=== PATIENT | female | born 1955 | race American Indian/Alaskan Native ===

== ENCOUNTER 2018-06-03 19:11 | Emergency (ER) | payer OTHER ==
[~2018-06-03] VITALS: Ht 152.4 cm; Wt 95.2 kg
[~2018-06-03 19:11] MED LIST: BUPR150T2 PO; HYDCHL25 PO; LEVSOD100 PO; LOSA25 PO; MULVITMIND PO; PROBIOTIC PO; TOCO400 PO
[2018-06-03 20:05] LABS: BASOPHILS ABSOLUTE AUTO 0.06 K/mm3 (0.00-0.23); BASOPHILS PERCENT AUTO 1 % (0-2); EOSINOPHILS ABSOLUTE AUTO 0.03 K/mm3 (0.00-0.68); EOSINOPHILS PERCENT AUTO 0 % (0-6); Hematocrit 38.9 % (33.0-51.0); Hemoglobin 13.4 g/dL (11.5-16.0); IMMATURE GRAN ABSOLUTE AUTO 0.02 K/mm3 (0.00-0.10); IMMATURE GRAN PERCENT AUTO 0 % (0-1); LYMPHOCYTES ABSOLUTE AUTO 1.36 K/mm3 (0.84-5.20); LYMPHOCYTES PERCENT AUTO 16 % (21-46); MONOCYTES ABSOLUTE AUTO 0.81 K/mm3 (0.16-1.47); MONOCYTES PERCENT AUTO 10 % (4-13); Mean Corpuscular HGB 34.3 pg (26.0-34.0); Mean Corpuscular HGB Conc 34.4 g/dL (31.5-36.5); Mean Corpuscular Volume 100 fL (80-100); Mean Platelet Volume 11.2 fL (9.1-12.4); NEUTROPHILS ABSOLUTE AUTO 6.02 K/mm3 (1.96-9.15); NEUTROPHILS PERCENT AUTO 73 % (41-73); Platelet Count 238 K/mm3 (150-400); RDW Coefficient Variation 12.9 % (11.7-14.2); Red Blood Cell Count 3.91 M/mm3 (3.80-5.20)
[2018-06-03 20:28] LABS: Alanine Aminotransfer (ALT/SGP 43 U/L (12-78); Albumin, Blood 3.6 g/dL (3.4-5.0); Albumin/Globulin Ratio 0.9 (0.8-1.8); Alk Phos 73 U/L (50-136); Anion Gap 11 mmol/L (6-16); Aspartate Aminotrans (AST/SGOT 53 U/L (12-37); Bilirubin, Total 0.5 mg/dL (0.1-1.0); Blood Urea Nitrogen 25 mg/dL (8-24); Bun/Creatinine Ratio 33.4 (12.0-20.0); CO2, Blood 31 mmol/L (21-32); Calcium, Blood 7.9 mg/dL (8.5-10.1); Chloride, Blood 96 mmol/L (98-108); Creatinine, Blood 0.75 mg/dL (0.40-1.00); Globulin, Blood 3.9 g/dL (2.2-4.0); Glomerular Filtration Rate >60 (60-); Glucose, Blood 121 mg/dL (70-99); Phosphorus, Blood 2.4 mg/dL (2.5-4.9); Potassium, Blood 3.3 mmol/L (3.5-5.5); Sodium, Blood 138 mmol/L (136-145); Total Protein, Blood 7.5 g/dL (6.4-8.2)
== END 2018-06-04 00:35 | disposition home or self-care (01) ==
LOC: ER 19:11
PROVIDERS: Physician Assistant
DX: E83.51 Hypocalcemia (principal); E83.42 Hypomagnesemia; F10.10 Alcohol abuse, uncomplicated; Z88.8 Allergy status to other drugs, medicaments and biological substances; Z79.899 Other long term (current) drug therapy; Z87.891 Personal history of nicotine dependence
CPT/HCPCS: 80053; 83735; 84100; 85025; 99283; J0610; J3475; J7030

== ENCOUNTER 2019-06-01 10:16 | Emergency (ER) | payer OTHER ==
[~2019-06-01] VITALS: Ht 152.4 cm; Wt 84.4 kg
[~2019-06-01 10:16] MED LIST changes: -HYDCHL25 PO; -LEVSOD100 PO; -LOSA25 PO; -PROBIOTIC PO
[2019-06-01 10:31] LABS: BASOPHILS ABSOLUTE AUTO 0.06 K/mm3 (0.00-0.23); BASOPHILS PERCENT AUTO 1 % (0-2); EOSINOPHILS ABSOLUTE AUTO 0.03 K/mm3 (0.00-0.68); EOSINOPHILS PERCENT AUTO 1 % (0-6); Hemoglobin 13.4 g/dL (11.5-16.0); IMMATURE GRAN ABSOLUTE AUTO 0.01 K/mm3 (0.00-0.10); IMMATURE GRAN PERCENT AUTO 0 % (0-1); LYMPHOCYTES ABSOLUTE AUTO 1.17 K/mm3 (0.84-5.20); LYMPHOCYTES PERCENT AUTO 20 % (21-46); MONOCYTES ABSOLUTE AUTO 0.65 K/mm3 (0.16-1.47); MONOCYTES PERCENT AUTO 11 % (4-13); Mean Corpuscular HGB 32.8 pg (26.0-34.0); Mean Corpuscular HGB Conc 35.3 g/dL (31.5-36.5); Mean Corpuscular Volume 93 fL (80-100); Mean Platelet Volume 10.2 fL (9.1-12.4); NEUTROPHILS ABSOLUTE AUTO 3.93 K/mm3 (1.96-9.15); NEUTROPHILS PERCENT AUTO 67 % (41-73); Platelet Count 217 K/mm3 (150-400); RDW Coefficient Variation 12.8 % (11.7-14.2); RDW Standard Deviation 43.9 fL (35.1-46.3); Red Blood Cell Count 4.08 M/mm3 (3.80-5.20); White Blood Cell Count 5.85 K/mm3 (4.00-11.30)
[2019-06-01 10:59] LABS: Troponin I <0.015 ng/mL (0.000-0.040)
[2019-06-01 11:00] LABS: Alanine Aminotransfer (ALT/SGP 54 U/L (12-78); Albumin, Blood 3.5 g/dL (3.4-5.0); Alk Phos 55 U/L (50-136); Anion Gap 12 mmol/L (6-16); Aspartate Aminotrans (AST/SGOT 87 U/L (12-37); Bilirubin, Total 0.5 mg/dL (0.1-1.0); Blood Urea Nitrogen 13 mg/dL (8-24); Bun/Creatinine Ratio 13.7 (12.0-20.0); CO2, Blood 33 mmol/L (21-32); Calcium, Blood 6.4 mg/dL (8.5-10.1); Chloride, Blood 92 mmol/L (98-108); Creatinine, Blood 0.95 mg/dL (0.40-1.00); Globulin, Blood 3.5 g/dL (2.2-4.0); Glomerular Filtration Rate >60 (60-); Glucose, Blood 168 mg/dL (70-99); Potassium, Blood 2.6 mmol/L (3.5-5.5); Sodium, Blood 137 mmol/L (136-145)
[2019-06-01] MEDS ORDERED: Venlafaxine HC150 MG PO (12:20)
[2019-06-01] MEDS ORDERED: HYDCHL50 PO (12:24)
[2019-06-01] MEDS ORDERED: PROBIOTIC PO (12:40)
[2019-06-01] MEDS ORDERED: LEVSOD100 PO (12:40)
[2019-06-01] MEDS ORDERED: LOSARTAN POTAS100 M1 PO (12:40)
[2019-06-01] MEDS ORDERED: ZOFRAN8 MG PO (12:42)
[2019-06-01] MEDS ORDERED: OMEP20ER PO (12:42)
[2019-06-01] MEDS ORDERED: BIOTIN PO (12:43)
[2019-06-01] MEDS ORDERED: CHLO25 PO ×2 (12:55→12:57)
[2019-06-01] MEDS ORDERED: POTA20PAC PO (12:55)
[2019-06-01] MEDS ORDERED: MAGNESIUM OXID500 MG PO (12:55)
== END 2019-06-01 14:41 | disposition home or self-care (01) ==
LOC: ER 10:16
PROVIDERS: Emergency Medicine
DX: F10.239 Alcohol dependence with withdrawal, unspecified (principal); E83.42 Hypomagnesemia; E87.6 Hypokalemia; Z88.8 Allergy status to other drugs, medicaments and biological substances; Z79.899 Other long term (current) drug therapy
CPT/HCPCS: 71046; 80053; 83690; 83735; 83880; 84484; 85025; 93005; 93010; 96365; 96366; 96368; 96375; 96376; 99285-25; J2060; J3475; J3480

== ENCOUNTER 2019-07-01 12:37 | Emergency (ER) | payer OTHER ==
[~2019-07-01] VITALS: Ht 154.9 cm; Wt 81.7 kg
[~2019-07-01 12:37] MED LIST changes: +BIOTIN PO; +CHLO25 PO; +HYDCHL50 PO; +LEVSOD100 PO; +LOSARTAN POTAS100 M1 PO; +MAGNESIUM OXID500 MG PO; +OMEP20ER PO; +POTA20PAC PO; +PROBIOTIC PO; +Venlafaxine HC150 MG PO; +ZOFRAN8 MG PO
[2019-07-01] MEDS ORDERED: AMLODIPINE BESYL5 MG PO (13:29)
[2019-07-01] MEDS ORDERED: LORAZEPAM0.5 MG PO (13:29)
[2019-07-01 14:43] LABS: BASOPHILS ABSOLUTE AUTO 0.11 K/mm3 (0.00-0.23); BASOPHILS PERCENT AUTO 2 % (0-2); EOSINOPHILS ABSOLUTE AUTO 0.12 K/mm3 (0.00-0.68); EOSINOPHILS PERCENT AUTO 2 % (0-6); Hemoglobin 10.9 g/dL (11.5-16.0); IMMATURE GRAN ABSOLUTE AUTO 0.06 K/mm3 (0.00-0.10); IMMATURE GRAN PERCENT AUTO 1 % (0-1); LYMPHOCYTES ABSOLUTE AUTO 1.92 K/mm3 (0.84-5.20); LYMPHOCYTES PERCENT AUTO 27 % (21-46); MONOCYTES PERCENT AUTO 9 % (4-13); Mean Corpuscular HGB 32.5 pg (26.0-34.0); Mean Corpuscular Volume 99 fL (80-100); Mean Platelet Volume 11.5 fL (9.1-12.4); NEUTROPHILS ABSOLUTE AUTO 4.29 K/mm3 (1.96-9.15); NEUTROPHILS PERCENT AUTO 61 % (41-73); Platelet Count 231 K/mm3 (150-400); RDW Coefficient Variation 13.3 % (11.7-14.2); RDW Standard Deviation 47.6 fL (35.1-46.3); Red Blood Cell Count 3.35 M/mm3 (3.80-5.20)
[2019-07-01 14:51] LABS: Alanine Aminotransfer (ALT/SGP 109 U/L (12-78); Albumin, Blood 3.3 g/dL (3.4-5.0); Albumin/Globulin Ratio 0.9 (0.8-1.8); Alk Phos 59 U/L (50-136); Anion Gap 6 mmol/L (6-16); Aspartate Aminotrans (AST/SGOT 208 U/L (12-37); Bilirubin, Total 0.3 mg/dL (0.1-1.0); Blood Urea Nitrogen 9 mg/dL (8-24); CO2, Blood 27 mmol/L (21-32); Calcium, Blood 7.2 mg/dL (8.5-10.1); Chloride, Blood 109 mmol/L (98-108); Creatinine, Blood 0.64 mg/dL (0.40-1.00); Globulin, Blood 3.6 g/dL (2.2-4.0); Glomerular Filtration Rate >60 (60-); Glucose, Blood 82 mg/dL (70-99); Magnesium, Blood 1.3 mg/dL (1.6-2.4); Phosphorus, Blood 1.9 mg/dL (2.5-4.9); Potassium, Blood 3.9 mmol/L (3.5-5.5); Sodium, Blood 142 mmol/L (136-145); Total Protein, Blood 6.9 g/dL (6.4-8.2)
[2019-07-01] MEDS ORDERED: PHOSPHOROUS 25250 MG PO (15:53)
== END 2019-07-01 16:09 | disposition home or self-care (01) ==
LOC: ER 12:37
PROVIDERS: Physician Assistant
DX: E83.42 Hypomagnesemia (principal); E83.51 Hypocalcemia; E83.39 Other disorders of phosphorus metabolism; D64.9 Anemia, unspecified; F10.10 Alcohol abuse, uncomplicated; Z88.8 Allergy status to other drugs, medicaments and biological substances; Z79.899 Other long term (current) drug therapy; Z87.891 Personal history of nicotine dependence
CPT/HCPCS: 36415; 80053; 83735; 84100; 85025; 93005; 93010; 99283-25

== ENCOUNTER 2019-08-09 15:23 | Emergency (ER) | payer OTHER ==
[~2019-08-09] VITALS: Ht 154.9 cm; Wt 77.6 kg
[~2019-08-09 15:23] MED LIST changes: +AMLODIPINE BESYL5 MG PO; +LORAZEPAM0.5 MG PO; +PHOSPHOROUS 25250 MG PO
[2019-08-09 17:32] LABS: Source, Urine Clean Catch
[2019-08-09 17:35] LABS: BASOPHILS PERCENT AUTO 1 % (0-2); EOSINOPHILS PERCENT AUTO 5 % (0-6); IMMATURE GRAN PERCENT AUTO 0 % (0-1); LYMPHOCYTES PERCENT AUTO 23 % (21-46); MONOCYTES PERCENT AUTO 8 % (4-13); Mean Corpuscular HGB 31.9 pg (26.0-34.0); Mean Corpuscular HGB Conc 33.3 g/dL (31.5-36.5); Mean Corpuscular Volume 96 fL (80-100); Mean Platelet Volume 11.3 fL (9.1-12.4); NEUTROPHILS PERCENT AUTO 64 % (41-73); Platelet Count 253 K/mm3 (150-400); RDW Coefficient Variation 12.4 % (11.7-14.2); RDW Standard Deviation 44.1 fL (35.1-46.3); Red Blood Cell Count 4.08 M/mm3 (3.80-5.20); White Blood Cell Count 9.52 K/mm3 (4.00-11.30)
[2019-08-09 17:36] LABS: BASOPHILS ABSOLUTE AUTO 0.08 K/mm3 (0.00-0.23); EOSINOPHILS ABSOLUTE AUTO 0.45 K/mm3 (0.00-0.68); IMMATURE GRAN ABSOLUTE AUTO 0.03 K/mm3 (0.00-0.10); LYMPHOCYTES ABSOLUTE AUTO 2.19 K/mm3 (0.84-5.20); MONOCYTES ABSOLUTE AUTO 0.71 K/mm3 (0.16-1.47); NEUTROPHILS ABSOLUTE AUTO 6.06 K/mm3 (1.96-9.15)
[2019-08-09 17:38] LABS: Bilirubin, Urine Neg (Neg); Blood, Urine 1+ (Neg); Glucose Qualitative, Urine Neg (Neg); Ketones, Urine Neg (Neg); Leukocyte Esterase, Urine Neg (Neg); Nitrite, Urine Neg (Neg); Protein, Urine Neg (Neg); Urobilinogen, Urine NORM (Normal); pH, Urine 6.5 (5.0-8.0)
[2019-08-09 17:58] LABS: Alanine Aminotransfer (ALT/SGP 60 U/L (12-78); Albumin, Blood 3.8 g/dL (3.4-5.0); Alk Phos 100 U/L (50-136); Anion Gap 3 mmol/L (6-16); Aspartate Aminotrans (AST/SGOT 63 U/L (12-37); Bilirubin, Total 0.4 mg/dL (0.1-1.0); Blood Urea Nitrogen 11 mg/dL (8-24); Bun/Creatinine Ratio 13.3 (12.0-20.0); CO2, Blood 29 mmol/L (21-32); Calcium, Blood 9.3 mg/dL (8.5-10.1); Chloride, Blood 102 mmol/L (98-108); Creatinine, Blood 0.83 mg/dL (0.40-1.00); Globulin, Blood 3.9 g/dL (2.2-4.0); Glomerular Filtration Rate >60 (60-); Glucose, Blood 88 mg/dL (70-99); Magnesium, Blood 1.7 mg/dL (1.6-2.4); Sodium, Blood 134 mmol/L (136-145); Total Protein, Blood 7.7 g/dL (6.4-8.2)
[2019-08-09 18:01] LABS: Appearance, Urine Clear (Clear); Color, Urine Yellow (P-Yellow)
[2019-08-09 18:05] LABS: Bacteria Mod /hpf; Squamous Epithelial Cells Few /hpf (Few); White Blood Cells, Urine 0-2 /hpf (0-5)
== END 2019-08-09 21:07 | disposition home or self-care (01) ==
LOC: ER 15:23
PROVIDERS: Physician Assistant
DX: R53.1 Weakness (principal); Z88.8 Allergy status to other drugs, medicaments and biological substances; Z79.899 Other long term (current) drug therapy; Z87.891 Personal history of nicotine dependence
CPT/HCPCS: 36415; 80053; 81001; 83690; 83735; 84100; 84484; 85025; 87086; 93005; 93010; 99284-25

== ENCOUNTER 2019-12-01 09:21 | Emergency (ER) | payer OTHER ==
[~2019-12-01] VITALS: Ht 154.9 cm; Wt 80.7 kg
[~2019-12-01 09:21] MED LIST changes: +ONDA4ODT MM
[2019-12-01 10:39] LABS: BASOPHILS ABSOLUTE AUTO 0.05 K/mm3 (0.00-0.23); BASOPHILS PERCENT AUTO 1 % (0-2); EOSINOPHILS ABSOLUTE AUTO 0.17 K/mm3 (0.00-0.68); EOSINOPHILS PERCENT AUTO 3 % (0-6); IMMATURE GRAN ABSOLUTE AUTO 0.03 K/mm3 (0.00-0.10); IMMATURE GRAN PERCENT AUTO 1 % (0-1); LYMPHOCYTES ABSOLUTE AUTO 1.44 K/mm3 (0.84-5.20); LYMPHOCYTES PERCENT AUTO 27 % (21-46); MONOCYTES ABSOLUTE AUTO 0.55 K/mm3 (0.16-1.47); MONOCYTES PERCENT AUTO 10 % (4-13); Mean Corpuscular HGB 31.4 pg (26.0-34.0); Mean Corpuscular HGB Conc 32.4 g/dL (31.5-36.5); Mean Corpuscular Volume 97 fL (80-100); NEUTROPHILS ABSOLUTE AUTO 3.19 K/mm3 (1.96-9.15); NEUTROPHILS PERCENT AUTO 59 % (41-73); RDW Coefficient Variation 13.9 % (11.7-14.2); Red Blood Cell Count 3.82 M/mm3 (3.80-5.20); White Blood Cell Count 5.43 K/mm3 (4.00-11.30)
[2019-12-01 10:54] LABS: Mean Platelet Volume 11.6 fL (9.1-12.4); Platelet Count 119 K/mm3 (150-400)
[2019-12-01 11:02] LABS: Alanine Aminotransfer (ALT/SGP 93 U/L (12-78); Albumin, Blood 3.1 g/dL (3.4-5.0); Albumin/Globulin Ratio 0.8 (0.8-1.8); Alk Phos 162 U/L (50-136); Anion Gap 7 mmol/L (6-16); Aspartate Aminotrans (AST/SGOT 118 U/L (12-37); Bilirubin, Total 0.6 mg/dL (0.1-1.0); Blood Urea Nitrogen 29 mg/dL (8-24); Bun/Creatinine Ratio 38.9 (12.0-20.0); CO2, Blood 25 mmol/L (21-32); Calcium, Blood 8.4 mg/dL (8.5-10.1); Chloride, Blood 105 mmol/L (98-108); Creatinine, Blood 0.75 mg/dL (0.40-1.00); Glomerular Filtration Rate >60 (60-); Glucose, Blood 123 mg/dL (70-99); Potassium, Blood 3.9 mmol/L (3.5-5.5); Sodium, Blood 137 mmol/L (136-145); Total Protein, Blood 7.1 g/dL (6.4-8.2)
[2019-12-01] MEDS ORDERED: AMLODIPINE BESYL5 MG PO (11:54)
[2019-12-01] MEDS ORDERED: MAGNESIUM PO (11:56)
[2019-12-01] MEDS ORDERED: MAGNESIUM OXID500 MG PO (11:59)
[2019-12-01] MEDS ORDERED: POTASSIUM GLUCO99 M1 PO (11:59)
[2019-12-01] MEDS ORDERED: MAGOXI400 PO (13:12)
[2019-12-01] MEDS ORDERED: Pepcid40 MG PO (13:12)
== END 2019-12-01 14:59 | disposition home or self-care (01) ==
LOC: ER 09:21
PROVIDERS: Emergency Medicine
DX: E83.42 Hypomagnesemia (principal); F10.20 Alcohol dependence, uncomplicated; K70.10 Alcoholic hepatitis without ascites; K21.0 Gastro-esophageal reflux disease with esophagitis; I10 Essential (primary) hypertension; Z88.8 Allergy status to other drugs, medicaments and biological substances; Z79.899 Other long term (current) drug therapy; Z87.891 Personal history of nicotine dependence
CPT/HCPCS: 36415; 80053; 83735; 85025; 93005; 93010; 96365; 96366; 99283-25; J3475

== ENCOUNTER 2019-12-31 13:42 | Emergency (ER) | payer OTHER ==
[~2019-12-31] VITALS: Ht 154.9 cm; Wt 77.1 kg
[~2019-12-31 13:42] MED LIST changes: +MAGNESIUM PO; +MAGOXI400 PO; +POTASSIUM GLUCO99 M1 PO; +Pepcid40 MG PO
[2019-12-31 14:25] LABS: BASOPHILS ABSOLUTE AUTO 0.09 K/mm3 (0.00-0.23); BASOPHILS PERCENT AUTO 2 % (0-2); EOSINOPHILS ABSOLUTE AUTO 0.01 K/mm3 (0.00-0.68); EOSINOPHILS PERCENT AUTO 0 % (0-6); Hematocrit 37.8 % (33.0-51.0); Hemoglobin 13.3 g/dL (11.5-16.0); IMMATURE GRAN ABSOLUTE AUTO 0.01 K/mm3 (0.00-0.10); IMMATURE GRAN PERCENT AUTO 0 % (0-1); LYMPHOCYTES ABSOLUTE AUTO 1.57 K/mm3 (0.84-5.20); LYMPHOCYTES PERCENT AUTO 31 % (21-46); MONOCYTES ABSOLUTE AUTO 0.49 K/mm3 (0.16-1.47); MONOCYTES PERCENT AUTO 10 % (4-13); Mean Corpuscular HGB 31.9 pg (26.0-34.0); Mean Corpuscular HGB Conc 35.2 g/dL (31.5-36.5); Mean Corpuscular Volume 91 fL (80-100); Mean Platelet Volume 10.7 fL (9.1-12.4); NEUTROPHILS ABSOLUTE AUTO 2.87 K/mm3 (1.96-9.15); NEUTROPHILS PERCENT AUTO 57 % (41-73); Platelet Count 200 K/mm3 (150-400); RDW Coefficient Variation 13.9 % (11.7-14.2); RDW Standard Deviation 46.2 fL (35.1-46.3); Red Blood Cell Count 4.17 M/mm3 (3.80-5.20); White Blood Cell Count 5.04 K/mm3 (4.00-11.30)
[2019-12-31 14:46] LABS: Alanine Aminotransfer (ALT/SGP 52 U/L (12-78); Albumin, Blood 3.3 g/dL (3.4-5.0); Albumin/Globulin Ratio 0.9 (0.8-1.8); Alk Phos 80 U/L (50-136); Anion Gap 10 mmol/L (6-16); Aspartate Aminotrans (AST/SGOT 52 U/L (12-37); Bilirubin, Total 0.4 mg/dL (0.1-1.0); Blood Urea Nitrogen 24 mg/dL (8-24); Bun/Creatinine Ratio 34.7 (12.0-20.0); CO2, Blood 26 mmol/L (21-32); Calcium, Blood 8.5 mg/dL (8.5-10.1); Chloride, Blood 104 mmol/L (98-108); Creatinine, Blood 0.69 mg/dL (0.40-1.00); Globulin, Blood 3.7 g/dL (2.2-4.0); Glomerular Filtration Rate >60 (60-); Glucose, Blood 114 mg/dL (70-99); Magnesium, Blood 2.1 mg/dL (1.6-2.4); Phosphorus, Blood 3.5 mg/dL (2.5-4.9); Potassium, Blood 3.6 mmol/L (3.5-5.5); Sodium, Blood 140 mmol/L (136-145)
[2019-12-31] MEDS ORDERED: ONDA4ODT MM (15:02)
[2019-12-31] MEDS ORDERED: LORA.5 PO (15:14)
== END 2019-12-31 17:47 | disposition home or self-care (01) ==
LOC: ER 13:42
PROVIDERS: Emergency Medicine
DX: R42 Dizziness and giddiness (principal); Z86.59 Personal history of other mental and behavioral disorders; I10 Essential (primary) hypertension; Z79.899 Other long term (current) drug therapy; Z87.891 Personal history of nicotine dependence
CPT/HCPCS: 36415; 80053; 83735; 84100; 85025; 93005; 93010; 96361; 96374; 99284-25; A9270-GY; J2405; J7030

== ENCOUNTER 2020-01-14 12:18 | Emergency (ER) | payer OTHER ==
[~2020-01-14] VITALS: Ht 154.9 cm; Wt 74.8 kg
[~2020-01-14 12:18] MED LIST changes: +LORA.5 PO
[2020-01-14] MEDS ORDERED: CHLO25 PO ×2 (15:36→15:37)
== END 2020-01-14 15:51 | disposition home or self-care (01) ==
LOC: ER 12:18
DX: S09.90XA Unspecified injury of head, initial encounter (principal); F10.10 Alcohol abuse, uncomplicated; I10 Essential (primary) hypertension; Z88.8 Allergy status to other drugs, medicaments and biological substances; Z87.891 Personal history of nicotine dependence; Z79.899 Other long term (current) drug therapy; W18.30XA Fall on same level, unspecified, initial encounter; Y92.009 Unspecified place in unspecified non-institutional (private) residence as the place of occurrence of the external cause
CPT/HCPCS: 70450; 99283-25

== ENCOUNTER 2020-01-20 08:26 | Emergency (ER) | payer OTHER ==
[~2020-01-20] VITALS: Ht 154.9 cm; Wt 83.5 kg
[2020-01-20] MEDS ORDERED: CHLO25 PO (08:50)
== END 2020-01-20 08:58 | disposition home or self-care (01) ==
LOC: ER 08:26
DX: Z76.0 Encounter for issue of repeat prescription (principal); F10.20 Alcohol dependence, uncomplicated; I10 Essential (primary) hypertension; Z88.8 Allergy status to other drugs, medicaments and biological substances; Z79.899 Other long term (current) drug therapy; Z87.891 Personal history of nicotine dependence
CPT/HCPCS: 99281

== ENCOUNTER 2020-05-24 09:07 | Emergency (ER) | payer OTHER ==
[~2020-05-24] VITALS: Ht 162.6 cm; Wt 90.7 kg
[2020-05-24 09:41] LABS: BASOPHILS ABSOLUTE AUTO 0.06 K/mm3 (0.00-0.23); BASOPHILS PERCENT AUTO 1 % (0-2); EOSINOPHILS ABSOLUTE AUTO 0.01 K/mm3 (0.00-0.68); EOSINOPHILS PERCENT AUTO 0 % (0-6); Hematocrit 37.2 % (33.0-51.0); Hemoglobin 12.8 g/dL (11.5-16.0); IMMATURE GRAN ABSOLUTE AUTO 0.03 K/mm3 (0.00-0.10); IMMATURE GRAN PERCENT AUTO 1 % (0-1); LYMPHOCYTES ABSOLUTE AUTO 1.53 K/mm3 (0.84-5.20); LYMPHOCYTES PERCENT AUTO 27 % (21-46); MONOCYTES ABSOLUTE AUTO 0.42 K/mm3 (0.16-1.47); MONOCYTES PERCENT AUTO 7 % (4-13); Mean Corpuscular HGB 30.5 pg (26.0-34.0); Mean Corpuscular HGB Conc 34.4 g/dL (31.5-36.5); Mean Corpuscular Volume 89 fL (80-100); Mean Platelet Volume 10.6 fL (9.1-12.4); NEUTROPHILS ABSOLUTE AUTO 3.64 K/mm3 (1.96-9.15); NEUTROPHILS PERCENT AUTO 64 % (41-73); Platelet Count 181 K/mm3 (150-400); RDW Coefficient Variation 14.4 % (11.7-14.2); RDW Standard Deviation 46.3 fL (35.1-46.3); Red Blood Cell Count 4.19 M/mm3 (3.80-5.20); White Blood Cell Count 5.69 K/mm3 (4.00-11.30)
[2020-05-24 10:22] LABS: Alanine Aminotransfer (ALT/SGP 37 U/L (12-78); Albumin, Blood 3.6 g/dL (3.4-5.0); Alk Phos 70 U/L (50-136); Anion Gap 12 mmol/L (6-16); Aspartate Aminotrans (AST/SGOT 47 U/L (12-37); Bilirubin, Total 0.5 mg/dL (0.1-1.0); Blood Urea Nitrogen 12 mg/dL (8-24); Bun/Creatinine Ratio 13.2 (12.0-20.0); CO2, Blood 23 mmol/L (21-32); Calcium, Blood 7.9 mg/dL (8.5-10.1); Chloride, Blood 105 mmol/L (98-108); Creatinine, Blood 0.91 mg/dL (0.40-1.00); Ethanol (Alcohol), Blood, Med 130 mg/dL; Globulin, Blood 3.5 g/dL (2.2-4.0); Glomerular Filtration Rate >60 (60-); Glucose, Blood 118 mg/dL (70-99); Magnesium, Blood 1.6 mg/dL (1.6-2.4); Sodium, Blood 140 mmol/L (136-145); Total Protein, Blood 7.1 g/dL (6.4-8.2); Troponin I <0.015 ng/mL (0.000-0.040)
[2020-05-24] MEDS ORDERED: CHLO25 PO (13:15)
[2020-05-24] MEDS ORDERED: PROM25 PO (13:15)
== END 2020-05-24 13:22 | disposition home or self-care (01) ==
LOC: ER 09:07
PROVIDERS: Emergency Medicine
DX: F10.139 Alcohol abuse with withdrawal, unspecified (principal); Z87.891 Personal history of nicotine dependence
CPT/HCPCS: 36415; 80053; 83690; 83735; 84484; 85025; 93005; 93010; 96361; 96374; 99284-25; A9270; G0480; J2550; J7120

== ENCOUNTER 2020-05-26 17:06 | Emergency (ER) | payer OTHER ==
[~2020-05-26] VITALS: Ht 152.4 cm; Wt 85.7 kg
[~2020-05-26 17:06] MED LIST changes: +PROM25 PO
== END 2020-05-26 18:44 | disposition home or self-care (01) ==
LOC: ER 17:06
DX: F10.10 Alcohol abuse, uncomplicated (principal); I10 Essential (primary) hypertension; Z88.8 Allergy status to other drugs, medicaments and biological substances; Z79.899 Other long term (current) drug therapy; Z87.891 Personal history of nicotine dependence
CPT/HCPCS: 99284

== ENCOUNTER 2020-10-13 11:30 | Observation (INO) | payer SELFPAY ==
[~2020-10-13] VITALS: Ht 154.9 cm; Wt 86.2 kg
[~2020-10-13 11:30] MED LIST changes: -LEVSOD100 PO; -LOSARTAN POTAS100 M1 PO
[2020-10-13 12:36] LABS: BASOPHILS ABSOLUTE AUTO 0.07 K/mm3 (0.00-0.23); BASOPHILS PERCENT AUTO 1 % (0-2); EOSINOPHILS ABSOLUTE AUTO 0.02 K/mm3 (0.00-0.68); EOSINOPHILS PERCENT AUTO 0 % (0-6); Hematocrit 37.8 % (33.0-51.0); Hemoglobin 12.7 g/dL (11.5-16.0); IMMATURE GRAN ABSOLUTE AUTO 0.02 K/mm3 (0.00-0.10); IMMATURE GRAN PERCENT AUTO 0 % (0-1); LYMPHOCYTES ABSOLUTE AUTO 2.76 K/mm3 (0.84-5.20); LYMPHOCYTES PERCENT AUTO 36 % (21-46); MONOCYTES ABSOLUTE AUTO 0.32 K/mm3 (0.16-1.47); MONOCYTES PERCENT AUTO 4 % (4-13); Mean Corpuscular HGB 32.2 pg (26.0-34.0); Mean Corpuscular HGB Conc 33.6 g/dL (31.5-36.5); Mean Corpuscular Volume 96 fL (80-100); Mean Platelet Volume 10.5 fL (9.1-12.4); NEUTROPHILS ABSOLUTE AUTO 4.57 K/mm3 (1.96-9.15); NEUTROPHILS PERCENT AUTO 59 % (41-73); Platelet Count 268 K/mm3 (150-400); RDW Coefficient Variation 13.6 % (11.7-14.2); RDW Standard Deviation 48.6 fL (35.1-46.3); Red Blood Cell Count 3.95 M/mm3 (3.80-5.20); White Blood Cell Count 7.76 K/mm3 (4.00-11.30)
[2020-10-13 13:04] LABS: Alanine Aminotransfer (ALT/SGP 77 U/L (12-78); Albumin, Blood 3.7 g/dL (3.4-5.0); Alk Phos 88 U/L (50-136); Anion Gap 9 mmol/L (6-16); Aspartate Aminotrans (AST/SGOT 83 U/L (12-37); Bilirubin, Total 0.2 mg/dL (0.1-1.0); Blood Urea Nitrogen 19 mg/dL (8-24); Bun/Creatinine Ratio 27.6 (12.0-20.0); CO2, Blood 26 mmol/L (21-32); Calcium, Blood 8.1 mg/dL (8.5-10.1); Chloride, Blood 109 mmol/L (98-108); Creatinine, Blood 0.69 mg/dL (0.40-1.00); Globulin, Blood 3.7 g/dL (2.2-4.0); Glomerular Filtration Rate >60 (60-); Glucose, Blood 88 mg/dL (70-99); Potassium, Blood 3.8 mmol/L (3.5-5.5); Sodium, Blood 144 mmol/L (136-145); Total Protein, Blood 7.4 g/dL (6.4-8.2)
[2020-10-13 13:06] LABS: Ethanol (Alcohol), Blood, Med 377 mg/dL
[2020-10-13 13:07] LABS: Acetaminophen, Random <2.0 ug/mL (10.0-30.0)
[2020-10-13 13:48] LABS: Source, Urine Clean Catch
[2020-10-13 13:54] LABS: Bilirubin, Urine Neg (Neg); Blood, Urine 1+ (Neg); Color, Urine Yellow (P-Yellow); Glucose Qualitative, Urine Neg (Neg); Ketones, Urine Neg (Neg); Leukocyte Esterase, Urine Neg (Neg); Nitrite, Urine Neg (Neg); Protein, Urine 1+ (Neg); Urobilinogen, Urine NORM (Normal)
[2020-10-13] MEDS ORDERED: LEVSOD100 PO (13:59)
[2020-10-13] MEDS ORDERED: CYMBALTA30 M2 PO (14:00)
[2020-10-13] MEDS ORDERED: AMLODIPINE BESYL5 MG PO (14:00)
[2020-10-13] MEDS ORDERED: LOSARTAN POTAS100 M1 PO (14:01)
[2020-10-13 14:03] LABS: Appearance, Urine Hazy (Clear)
[2020-10-13 14:04] LABS: Bacteria Mod /hpf; Mucus Light (0-Heavy); Red Blood Cells, Urine 0-2 /hpf (0-2); Squamous Epithelial Cells Mod /hpf (Few)
[2020-10-13 14:19] LABS: U Amphetamine Screen Not Detected; U Barbituate Screen Not Detected; U Benzodiazapine Screen Not Detected; U Buprenorphine Screen Not Detected; U Cannabinoids Screen Not Detected; U Cocaine Screen Not Detected; U Methadone Screen Not Detected; U Methamphetamine Screen Not Detected; U Opiates Screen Not Detected; U Oxycodone Screen Not Detected; U Phencyclidine Screen Not Detected; U Propoxyphene Screen Not Detected
[2020-10-13 16:15] LABS: SARS-Cov-2 (COVID-19) PCR, MMC NEGATIVE (NEGATIVE)
[2020-10-14] MEDS ORDERED: LORA.5 PO (09:18)
== END 2020-10-14 09:04 | disposition home or self-care (01) ==
LOC: ER 11:30 → EOR 11:31
PROVIDERS: Physician Assistant; ADMIT Emergency Medicine
DX: F32.9 Major depressive disorder, single episode, unspecified (principal); F10.229 Alcohol dependence with intoxication, unspecified; Y90.8 Blood alcohol level of 240 mg/100 ml or more; I10 Essential (primary) hypertension; Z87.891 Personal history of nicotine dependence; Z20.822 Contact with and (suspected) exposure to COVID-19
CPT/HCPCS: 80053; 81001; 81025; 85025; 86592; 87086; 99285; A9270; G0378; G0480; Q3014; U0004

== ENCOUNTER 2021-01-27 10:37 | Observation (INO) | payer OTHER ==
[~2021-01-27] VITALS: Ht 154.9 cm; Wt 83.0 kg
[~2021-01-27 10:37] MED LIST changes: +CYMBALTA30 M2 PO; +LEVSOD100 PO; +LOSARTAN POTAS100 M1 PO
== END 2021-01-27 14:41 | disposition home or self-care (01) ==
LOC: ER 10:37 → EOR 10:38
PROVIDERS: ADMIT Student in an Organized Health Care Education/Training Program
DX: F10.129 Alcohol abuse with intoxication, unspecified (principal); Y90.9 Presence of alcohol in blood, level not specified; R45.851 Suicidal ideations; I10 Essential (primary) hypertension; M19.90 Unspecified osteoarthritis, unspecified site; Z79.899 Other long term (current) drug therapy
CPT/HCPCS: 99285; G0378

== ENCOUNTER → 2021-07-28 | Outpatient (CLI) | payer OTHER ==
[~2021-07-28] MED LIST changes: +BUSPIRONE HCL30 M1 PO; +GABA300 PO; +ONDA4 PO
[2021-07-28 13:33] LABS: BASOPHILS ABSOLUTE AUTO 0.06 K/mm3 (0.00-0.23); BASOPHILS PERCENT AUTO 1 % (0-2); EOSINOPHILS ABSOLUTE AUTO 0.13 K/mm3 (0.00-0.68); EOSINOPHILS PERCENT AUTO 2 % (0-6); Hematocrit 35.2 % (33.0-51.0); Hemoglobin 11.8 g/dL (11.5-16.0); IMMATURE GRAN ABSOLUTE AUTO 0.02 K/mm3 (0.00-0.10); IMMATURE GRAN PERCENT AUTO 0 % (0-1); LYMPHOCYTES ABSOLUTE AUTO 1.35 K/mm3 (0.84-5.20); LYMPHOCYTES PERCENT AUTO 22 % (21-46); MONOCYTES ABSOLUTE AUTO 0.64 K/mm3 (0.16-1.47); MONOCYTES PERCENT AUTO 11 % (4-13); Mean Corpuscular HGB 29.6 pg (26.0-34.0); Mean Corpuscular HGB Conc 33.5 g/dL (31.5-36.5); Mean Corpuscular Volume 88 fL (80-100); Mean Platelet Volume 11.7 fL (9.1-12.4); NEUTROPHILS ABSOLUTE AUTO 3.89 K/mm3 (1.96-9.15); NEUTROPHILS PERCENT AUTO 64 % (41-73); Platelet Count 164 K/mm3 (150-400); RDW Coefficient Variation 14.7 % (11.7-14.2); RDW Standard Deviation 47.1 fL (35.1-46.3); Red Blood Cell Count 3.99 M/mm3 (3.80-5.20); White Blood Cell Count 6.09 K/mm3 (4.00-11.30)
[2021-07-28 14:21] LABS: Albumin, Blood 3.6 g/dL (3.4-5.0); Albumin/Globulin Ratio 0.9 (0.8-1.8); Bilirubin, Total 0.2 mg/dL (0.1-1.0); Bun/Creatinine Ratio 27.1 (12.0-20.0); Calcium, Blood 9.4 mg/dL (8.5-10.1); Creatinine, Blood 0.85 mg/dL (0.40-1.00); Globulin, Blood 3.9 g/dL (2.2-4.0); Potassium, Blood 3.9 mmol/L (3.5-5.5); Total Protein, Blood 7.5 g/dL (6.4-8.2)
== END ==
LOC: LAB SHORT 13:26
PROVIDERS: Physician Assistant
DX: R00.2 Palpitations (principal)
CPT/HCPCS: 80053; 83880; 84443; 84484; 85025

== ENCOUNTER 2021-09-12 11:47 | Emergency (ER) | payer OTHER ==
[~2021-09-12] VITALS: Ht 152.4 cm; Wt 86.2 kg
[2021-09-12] MEDS ORDERED: GABA300 PO (12:28)
[2021-09-12] MEDS ORDERED: Naltrexone HCl50 MG PO (12:28)
[2021-09-13] MEDS ORDERED: CHLO25 PO (15:54)
[2021-09-13] MEDS ORDERED: ONDA4 PO (15:56)
[2021-09-13] MEDS ORDERED: SUCR1 PO (15:56)
[2021-09-13] MEDS ORDERED: OMEP20ER PO (15:56)
[2021-09-13] MEDS ORDERED: CONSTULOSE10 GM/155 PO (16:37)
== END 2021-09-12 13:22 | disposition home or self-care (01) ==
LOC: ER 11:47
DX: Z71.41 Alcohol abuse counseling and surveillance of alcoholic (principal); I10 Essential (primary) hypertension; Z87.891 Personal history of nicotine dependence; Z88.8 Allergy status to other drugs, medicaments and biological substances; Z79.899 Other long term (current) drug therapy
CPT/HCPCS: 93005; 93010; A9270

== ENCOUNTER 2022-01-07 05:36 | Inpatient (IN) | payer OTHER ==
[~2022-01-07] VITALS: Ht 154.9 cm; Wt 85.4 kg
[~2022-01-07 05:36] MED LIST changes: +CONSTULOSE10 GM/155 PO; +Naltrexone HCl50 MG PO; +SUCR1 PO
[2022-01-07 06:39] LABS: BASOPHILS ABSOLUTE AUTO 0.04 K/mm3 (0.00-0.23); BASOPHILS PERCENT AUTO 1 % (0-2); EOSINOPHILS ABSOLUTE AUTO 0.02 K/mm3 (0.00-0.68); EOSINOPHILS PERCENT AUTO 0 % (0-6); Hematocrit 35.6 % (33.0-51.0); IMMATURE GRAN ABSOLUTE AUTO 0.02 K/mm3 (0.00-0.10); IMMATURE GRAN PERCENT AUTO 0 % (0-1); LYMPHOCYTES ABSOLUTE AUTO 1.28 K/mm3 (0.84-5.20); LYMPHOCYTES PERCENT AUTO 26 % (21-46); MONOCYTES ABSOLUTE AUTO 0.51 K/mm3 (0.16-1.47); MONOCYTES PERCENT AUTO 10 % (4-13); Mean Corpuscular HGB 29.6 pg (26.0-34.0); Mean Corpuscular HGB Conc 33.7 g/dL (31.5-36.5); Mean Corpuscular Volume 88 fL (80-100); Mean Platelet Volume 11.6 fL (9.1-12.4); NEUTROPHILS ABSOLUTE AUTO 3.12 K/mm3 (1.96-9.15); NEUTROPHILS PERCENT AUTO 63 % (41-73); Platelet Count 218 K/mm3 (150-400); RDW Coefficient Variation 16.6 % (11.7-14.2); Red Blood Cell Count 4.06 M/mm3 (3.80-5.20); White Blood Cell Count 4.99 K/mm3 (4.00-11.30)
[2022-01-07 07:11] LABS: Albumin, Blood 3.4 g/dL (3.4-5.0); Albumin/Globulin Ratio 0.9 (0.8-1.8); Bilirubin, Total 0.3 mg/dL (0.1-1.0); Calcium, Blood 6.2 mg/dL (8.5-10.1); Creatinine, Blood 0.8 mg/dL (0.40-1.00); Globulin, Blood 3.9 g/dL (2.2-4.0); Potassium, Blood 2.3 mmol/L (3.5-5.5); Total Protein, Blood 7.3 g/dL (6.4-8.2)
[2022-01-07 07:42] LABS: Magnesium, Blood 0.9 mg/dL (1.6-2.4)
--- NOTE | 2022-01-07 16:31 | NUR ---
PCU ADMIT PT BROUGHT TO PCU-19 BY MICHAEL FROM ER @ 1420. PT SLID OVER FROM [facility] TO PCU BED BY 4 STAFF MEMBERS. PT A&O X4, DISORIENTED TO DATE BY ONLY 1 DAY. PT BILAT ARMS TREMULOUS. PT REPORTS LAST DRINK LAST NIGHT, STATING DRINKING "10 FIREBALL SHOT BOTTLES A NIGHT." PT REPORTS HAVING WITHDRAWN FROM ALCHOL IN THE PAST, DENIES HX OF SEIZURES. PRN PO LIBRIUM GIVEN, SEE EMAR. PT VSS. SPO2 > 92% ON RA. MONITOR SHOWING SR-ST W/ PVCs, HR 80s-110. PT 1 PERSON ASSIST TO BSC D/T PT UNSTEADINESS & WEAKNESS. PT UP TO BSC W/ YELLOW/GREEN LIQUID & JELLY LIKE STOOL. PT REPORTS DAILY DIARRHEA X10 DAYS W/ "CONSTIPATION IN BEWTEEN." D5 1/2 NS GTT & KCL GTT INFUSING PER ORDERS. PT IN BED W/ BED ALARM ON. REPORT GIVEN TO PCU DAY SHIFT RN NOW ASSUMING CARE OF PT.
--- NOTE | 2022-01-07 18:27 | NUR ---
ASSUMED CARE OF PATIENT AT APPROX 1600. I AGREE WITH THE PREVIOUS ARTS ADMINISTRATOR. VSS. NO OTHER ACUTE CHANGES NOTED. WILL CONTINUE TO MONITOR.
--- NOTE | 2022-01-07 22:29 | NUR ---
UPDATE CALL TO PHYSICIAN TO UPDATE ABOUT REPEAT MAGNESIUM AND POTASSIUM, ORDERS PLACED TO REPLACE. ADDRESSED SBP's BEING 150-160, NO NEW ORDERS AT THIS TIME.
[2022-01-07 23:29] LABS: U Amphetamine Screen Not Detected; U Barbituate Screen Not Detected; U Benzodiazapine Screen DETECTED; U Buprenorphine Screen Not Detected; U Cannabinoids Screen Not Detected; U Cocaine Screen Not Detected; U Methadone Screen Not Detected; U Methamphetamine Screen Not Detected; U Opiates Screen Not Detected; U Oxycodone Screen Not Detected; U Phencyclidine Screen Not Detected; U Propoxyphene Screen Not Detected
--- NOTE | 2022-01-08 04:52 | NUR ---
SHIFT SUMMARY PT A&Ox4, DISORIENTED TO DATE BY 1 DAY. VSS, SpO2> 92% RA, SINUS 80's WITH PVC's. BP ELEVATED WITH SBP 150-160, SEE PREVIOUS NOTE. CIWA STABLE THOUGHOUT SHIFT. PT UP TO BSC WITH SBA MULTIPLE TIMES TO VOID AND HAVE BM, C. DIFF PENDING. NO OTHER EVENTS THIS SHIFT. WILL REPORT TO DAY SHIFT RN.
[2022-01-08 06:11] LABS: Albumin, Blood 3.2 g/dL (3.4-5.0); Albumin/Globulin Ratio 0.9 (0.8-1.8); Bilirubin, Total 0.5 mg/dL (0.1-1.0); Bun/Creatinine Ratio 10.4 (12.0-20.0); Calcium, Blood 6.6 mg/dL (8.5-10.1); Creatinine, Blood 0.58 mg/dL (0.40-1.00); Globulin, Blood 3.6 g/dL (2.2-4.0); Magnesium, Blood 1.7 mg/dL (1.6-2.4); Potassium, Blood 3.4 mmol/L (3.5-5.5); Total Protein, Blood 6.8 g/dL (6.4-8.2)
[2022-01-08 09:59] LABS: C DIFFICILE DNA NEGATIVE (Negative)
--- NOTE | 2022-01-08 14:21 | NUR ---
Upon receiving a referral for spiritual care, I visit pt. Pt leads conversation with cry for help to stop drinking. She states many solid reasons why she desires to stop, then explains many reasoms why she has been unsuccessful. She talks about her low self esteem, her family unit complications and her Adverse Childhood Experiences. She explains about her beliefs and her solid sponse and family support. I provide therapeutic listening and prayer, discuss methods for developing healthy perspectives, and explore sources of value, meaning and purpose. Pt responds well and shows signs of catharsis and increased peace. I will continue to remain available to pt and family.
--- NOTE | 2022-01-08 17:58 | NUR ---
Transfer note Pt transfered to medical unit at approx 1640 via wheelchair. Pt alert, oriented x4; anxious at times. CIWA <8 t/o shift; tremors, anxiety and nausea noted. Pt denies pain, chest pain/pressure, sob, dizziness and numb/tingling. Pt medication status with no tele. Spo2 >90% on ra, breathing even and unlabored. Pt up with sba/ind in room. Pt reports feeling constipated after liquid stool this am. Vss. no other acute changes. Pt transfered to medical unit.
[2022-01-08 19:08] LABS: Campylobacter Sp Not Detected (NOT DETECT)
[2022-01-08 19:09] LABS: Adenovirus F 40/41 Not Detected (NOT DETECT); Astrovirus Not Detected (NOT DETECT); Cryptosporidium Not Detected (NOT DETECT); Cyclospora Cayetanensis Not Detected (NOT DETECT); E. Coli O157 Not Detected (NOT DETECT); Entamoeba Histolytica Not Detected (NOT DETECT); Enteroaggregative E. coli-EAEC Not Detected (NOT DETECT); Enteropathogenic E. coli-EPEC Not Detected (NOT DETECT); Enterotoxigenic E. coli-ETEC Not Detected (NOT DETECT); Giardia Lamblia Not Detected (NOT DETECT); Norovirus GI/GII Not Detected (NOT DETECT); Plesiomonas Shigelloides Not Detected (NOT DETECT); Rotavirus A Not Detected (NOT DETECT); Salmonella Sp Not Detected (NOT DETECT); Sapovirus Not Detected (NOT DETECT); Shiga Toxin-prod E. coli-STEC Not Detected (NOT DETECT); Shigella/Enteroin E. coli-EIEC Not Detected (NOT DETECT); Vibrio Cholerae Not Detected (NOT DETECT); Vibrio Sp Not Detected (NOT DETECT); Yersinia Enterocolitica Not Detected (NOT DETECT)
--- NOTE | 2022-01-09 04:18 | NUR ---
SUMMARY NO NEW ISSUES NOTED. PT REPORTS CONTINUED DIARRHEA. PT HAS BEEN VOIDING WELL THIS SHIFT. PT REQUIRED SOME LIBRIUM, CIWAS HAVE BEEN STABLE. PT HAS BEEN SLEEPING WELL. PT DENIES SOB OR DISCOMFORT. CALL LIGHT IN REACH.
[2022-01-09 08:03] LABS: Bun/Creatinine Ratio 9.1 (12.0-20.0); Creatinine, Blood 0.55 mg/dL (0.40-1.00); Potassium, Blood 2.9 mmol/L (3.5-5.5)
--- NOTE | 2022-01-09 17:49 | NUR ---
SHIFT SUMMARY PT A/O X4; PLEASANT AND COOPERATIVE WITH CARE. PT'S POTASSIUM LOW AND RECEIVING IV SUPPLEMENTATION. PT REPORTS THAT DIARRHEA IS IMPROVING. TOLERATING PO INTAKE WELL WITH NO NAUSEA OR VOMITING. VSS.
[2022-01-10 05:37] LABS: Bun/Creatinine Ratio 11.5 (12.0-20.0); Calcium, Blood 6.9 mg/dL (8.5-10.1); Creatinine, Blood 0.61 mg/dL (0.40-1.00); Magnesium, Blood 1.4 mg/dL (1.6-2.4); Potassium, Blood 3.2 mmol/L (3.5-5.5)
--- NOTE | 2022-01-10 07:49 | NUR ---
Shift Summary A&O x 4, VSS. Denies pain. Calls appropriately. Able to make needs known. Independent in room. Monitor labs for electrolyte imbalance.
--- NOTE | 2022-01-10 11:47 | NUR ---
VASCULAR ACCESS PT HAS AN EXISTING POWER GLIDE IN HER RIGHT UPPER ARM, INTACT & PATENT. IVF's INFUSING.
[2022-01-10] MEDS ORDERED: BANATROL PLUS1 EAC1 PO (17:09)
[2022-01-10] MEDS ORDERED: CALCIUM 500-VI1 EAC4 PO (17:11)
[2022-01-10] MEDS ORDERED: LOPE2C PO (17:12)
[2022-01-10] MEDS ORDERED: SPIR50 PO (17:13)
[2022-01-10] MEDS ORDERED: VISBIOME 112.51 EACH PO (17:14)
--- NOTE | 2022-01-10 18:03 | NUR ---
DC HOME WRITTEN & VERBAL DC INSTRUCTIONS GIVEN TO PT WITH GOOD UNDERSTANDING VERBALIZED. POWER GLIDE DC'D WITH CATH TIP INTACT, NO REDNESS OR SWELLING NOTED. NEW MED SCRIPTS WERE FAXED TO [facility] PER PT PREFERENCE. AT BEDSIDE TO TRANSPORT PT HOME. PT TO PRIVATE VEHICLE VIA WC WITH ALL PERSONAL BELONGINGS.
== END 2022-01-10 18:07 | disposition home or self-care (01) | DRG 641 ==
LOC: ER 05:36 → ERHOLD 05:37 → PCU 14:19 → MEDS 01-08 16:39
PROVIDERS: Emergency Medicine; Internal Medicine; Nurse Practitioner Acute Care; ADMIT Internal Medicine
DX: E87.6 Hypokalemia (principal); E83.51 Hypocalcemia; E83.42 Hypomagnesemia; M19.90 Unspecified osteoarthritis, unspecified site; F10.20 Alcohol dependence, uncomplicated; E03.9 Hypothyroidism, unspecified; I10 Essential (primary) hypertension; R94.31 Abnormal electrocardiogram [ECG] [EKG]; F41.8 Other specified anxiety disorders; E66.9 Obesity, unspecified; Z87.19 Personal history of other diseases of the digestive system; Z90.710 Acquired absence of both cervix and uterus; Z87.891 Personal history of nicotine dependence; Z79.899 Other long term (current) drug therapy; Z88.8 Allergy status to other drugs, medicaments and biological substances; Z90.49 Acquired absence of other specified parts of digestive tract; Z68.35 Body mass index [BMI] 35.0-35.9, adult
CPT/HCPCS: 80048; 80053; 82330; 83690; 83735; 84100; 84132; 84443; 85025; 87493; 87507; 93005; 93010; 96366; 96367; 96372; A9270; G0378; J0610; J1650; J2405; J3475; J3480; J7030; J7042; J7050

== ENCOUNTER 2022-02-17 07:54 | Emergency (ER) | payer MEDICARE, OTHER ==
[~2022-02-17] VITALS: Ht 154.9 cm; Wt 90.7 kg
[~2022-02-17 07:54] MED LIST changes: +BANATROL PLUS1 EAC1 PO; +CALCIUM 500-VI1 EAC4 PO; +LOPE2C PO; +SPIR50 PO; +VISBIOME 112.51 EACH PO
[2022-02-17 08:39] LABS: BASOPHILS ABSOLUTE AUTO 0.03 K/mm3 (0.00-0.23); BASOPHILS PERCENT AUTO 0 % (0-2); EOSINOPHILS PERCENT AUTO 0 % (0-6); Hematocrit 35.7 % (33.0-51.0); Hemoglobin 12.2 g/dL (11.5-16.0); IMMATURE GRAN ABSOLUTE AUTO 0.08 K/mm3 (0.00-0.10); IMMATURE GRAN PERCENT AUTO 1 % (0-1); LYMPHOCYTES ABSOLUTE AUTO 0.82 K/mm3 (0.84-5.20); LYMPHOCYTES PERCENT AUTO 11 % (21-46); MONOCYTES ABSOLUTE AUTO 0.51 K/mm3 (0.16-1.47); MONOCYTES PERCENT AUTO 7 % (4-13); Mean Corpuscular HGB Conc 34.2 g/dL (31.5-36.5); Mean Corpuscular Volume 91 fL (80-100); Mean Platelet Volume 11.1 fL (9.1-12.4); NEUTROPHILS ABSOLUTE AUTO 6.08 K/mm3 (1.96-9.15); NEUTROPHILS PERCENT AUTO 81 % (41-73); Platelet Count 259 K/mm3 (150-400); RDW Standard Deviation 58.5 fL (35.1-46.3); Red Blood Cell Count 3.94 M/mm3 (3.80-5.20); White Blood Cell Count 7.52 K/mm3 (4.00-11.30)
[2022-02-17 08:53] LABS: Ethanol (Alcohol), Blood, Med <3 mg/dL
[2022-02-17 08:58] LABS: Alanine Aminotransfer (ALT/SGP 59 U/L (12-78); Albumin, Blood 3.6 g/dL (3.4-5.0); Albumin/Globulin Ratio 0.9 (0.8-1.8); Alk Phos 86 U/L (50-136); Anion Gap 15 mmol/L (6-16); Aspartate Aminotrans (AST/SGOT 72 U/L (12-37); Bilirubin, Total 0.5 mg/dL (0.1-1.0); Blood Urea Nitrogen 6 mg/dL (8-24); Bun/Creatinine Ratio 11.3 (12.0-20.0); CO2, Blood 21 mmol/L (21-32); Calcium, Blood 6.4 mg/dL (8.5-10.1); Chloride, Blood 103 mmol/L (98-108); Creatinine, Blood 0.53 mg/dL (0.40-1.00); Globulin, Blood 4.2 g/dL (2.2-4.0); Glomerular Filtration Rate 103 (60-); Glucose, Blood 137 mg/dL (70-99); Potassium, Blood 3.3 mmol/L (3.5-5.5); Sodium, Blood 139 mmol/L (136-145); Total Protein, Blood 7.8 g/dL (6.4-8.2)
[2022-02-17] MEDS ORDERED: CHLO25 PO (10:16)
== END 2022-02-17 11:30 | disposition home or self-care (01) ==
LOC: ER 07:54
PROVIDERS: Emergency Medicine
DX: F10.139 Alcohol abuse with withdrawal, unspecified (principal); I10 Essential (primary) hypertension
CPT/HCPCS: 36415; 80053; 83690; 85025; A9270; G0480; J2550; J7030

== ENCOUNTER 2022-03-01 10:16 | Emergency (ER) | payer MEDICARE, OTHER ==
[~2022-03-01] VITALS: Ht 154.9 cm; Wt 104.3 kg
[2022-03-01 11:01] LABS: BASOPHILS ABSOLUTE AUTO 0.03 K/mm3 (0.00-0.23); BASOPHILS PERCENT AUTO 0 % (0-2); EOSINOPHILS ABSOLUTE AUTO 0.01 K/mm3 (0.00-0.68); EOSINOPHILS PERCENT AUTO 0 % (0-6); Hematocrit 31.9 % (33.0-51.0); Hemoglobin 10.9 g/dL (11.5-16.0); IMMATURE GRAN ABSOLUTE AUTO 0.05 K/mm3 (0.00-0.10); IMMATURE GRAN PERCENT AUTO 1 % (0-1); LYMPHOCYTES ABSOLUTE AUTO 0.69 K/mm3 (0.84-5.20); LYMPHOCYTES PERCENT AUTO 9 % (21-46); MONOCYTES ABSOLUTE AUTO 0.53 K/mm3 (0.16-1.47); MONOCYTES PERCENT AUTO 7 % (4-13); Mean Corpuscular HGB 32.6 pg (26.0-34.0); Mean Corpuscular HGB Conc 34.2 g/dL (31.5-36.5); Mean Corpuscular Volume 96 fL (80-100); Mean Platelet Volume 11.2 fL (9.1-12.4); NEUTROPHILS ABSOLUTE AUTO 6.18 K/mm3 (1.96-9.15); NEUTROPHILS PERCENT AUTO 83 % (41-73); Platelet Count 213 K/mm3 (150-400); RDW Coefficient Variation 18.4 % (11.7-14.2); RDW Standard Deviation 64.3 fL (35.1-46.3); Red Blood Cell Count 3.34 M/mm3 (3.80-5.20); White Blood Cell Count 7.49 K/mm3 (4.00-11.30)
[2022-03-01 12:08] LABS: Albumin, Blood 3.2 g/dL (3.4-5.0); Albumin/Globulin Ratio 0.9 (0.8-1.8); Bilirubin, Total 0.3 mg/dL (0.1-1.0); Bun/Creatinine Ratio 20.6 (12.0-20.0); Calcium, Blood 6.4 mg/dL (8.5-10.1); Creatinine, Blood 0.63 mg/dL (0.40-1.00); Globulin, Blood 3.4 g/dL (2.2-4.0); Magnesium, Blood 0.8 mg/dL (1.6-2.4); Potassium, Blood 3.6 mmol/L (3.5-5.5); Total Protein, Blood 6.6 g/dL (6.4-8.2)
[2022-03-01] MEDS ORDERED: ALMACONE SUSPE355 ML PO (14:40)
[2022-03-01] MEDS ORDERED: ONDA4ODT MM (14:40)
[2022-03-01] MEDS ORDERED: FAMO20 PO (14:40)
== END 2022-03-01 18:20 | disposition home or self-care (01) ==
LOC: ER 10:16
PROVIDERS: Student in an Organized Health Care Education/Training Program
DX: R11.2 Nausea with vomiting, unspecified (principal); R19.7 Diarrhea, unspecified; K29.70 Gastritis, unspecified, without bleeding; E83.42 Hypomagnesemia; E83.51 Hypocalcemia; F10.939 Alcohol use, unspecified with withdrawal, unspecified; I10 Essential (primary) hypertension; E03.9 Hypothyroidism, unspecified; Z88.8 Allergy status to other drugs, medicaments and biological substances; Z79.890 Hormone replacement therapy; Z79.899 Other long term (current) drug therapy; Z87.891 Personal history of nicotine dependence
CPT/HCPCS: 80053; 83735; 85025; 93005; 93010; A9270; G0480; J0610; J2765; J3475; J7030

== ENCOUNTER 2022-04-17 12:54 | Emergency (ER) | payer MEDICARE, OTHER ==
[~2022-04-17] VITALS: Ht 154.9 cm; Wt 83.9 kg
[~2022-04-17 12:54] MED LIST changes: +ALMACONE SUSPE355 ML PO; +FAMO20 PO
== END 2022-04-17 15:00 | disposition home or self-care (01) ==
LOC: ER 12:54
DX: M54.50 Low back pain, unspecified (principal); I10 Essential (primary) hypertension; E03.9 Hypothyroidism, unspecified; W19.XXXA Unspecified fall, initial encounter; Z79.899 Other long term (current) drug therapy; Z79.890 Hormone replacement therapy
CPT/HCPCS: 99284

== ENCOUNTER 2022-07-05 08:57 | Inpatient (IN) | payer MEDICARE, OTHER ==
[~2022-07-05] VITALS: Ht 160 cm; Wt 96.2 kg
[2022-07-05] VITALS (36 sets, daily range): BP systolic 99–142; BP diastolic 62–89
[~2022-07-05 08:57] MED LIST changes: +LOSA50 PO; -LOSARTAN POTAS100 M1 PO; +NAPROXEN250 M1 PO
[2022-07-05 09:47] LABS: BASOPHILS ABSOLUTE AUTO 0.03 K/mm3 (0.00-0.23); BASOPHILS PERCENT AUTO 0 % (0-2); EOSINOPHILS ABSOLUTE AUTO 0.27 K/mm3 (0.00-0.68); EOSINOPHILS PERCENT AUTO 4 % (0-6); Hematocrit 26.2 % (33.0-51.0); Hemoglobin 8.5 g/dL (11.5-16.0); IMMATURE GRAN ABSOLUTE AUTO 0.04 K/mm3 (0.00-0.10); IMMATURE GRAN PERCENT AUTO 1 % (0-1); LYMPHOCYTES ABSOLUTE AUTO 1.08 K/mm3 (0.84-5.20); LYMPHOCYTES PERCENT AUTO 15 % (21-46); MONOCYTES ABSOLUTE AUTO 0.37 K/mm3 (0.16-1.47); MONOCYTES PERCENT AUTO 5 % (4-13); Mean Corpuscular HGB 31.6 pg (26.0-34.0); Mean Corpuscular HGB Conc 32.4 g/dL (31.5-36.5); Mean Corpuscular Volume 97 fL (80-100); Mean Platelet Volume 12.1 fL (9.1-12.4); NEUTROPHILS ABSOLUTE AUTO 5.67 K/mm3 (1.96-9.15); NEUTROPHILS PERCENT AUTO 76 % (41-73); Platelet Count 124 K/mm3 (150-400); RDW Coefficient Variation 17.1 % (11.7-14.2); RDW Standard Deviation 59.2 fL (35.1-46.3); Red Blood Cell Count 2.69 M/mm3 (3.80-5.20); White Blood Cell Count 7.46 K/mm3 (4.00-11.30)
[2022-07-05 09:56] LABS: Albumin, Blood 2.8 g/dL (3.4-5.0); Albumin/Globulin Ratio 0.9 (0.8-1.8); Bilirubin, Total 1.1 mg/dL (0.1-1.0); Bun/Creatinine Ratio 15.9 (12.0-20.0); Calcium, Blood 6.3 mg/dL (8.5-10.1); Creatinine, Blood 0.82 mg/dL (0.40-1.00); Globulin, Blood 3.1 g/dL (2.2-4.0); Potassium, Blood 2.9 mmol/L (3.5-5.5); Total Protein, Blood 5.9 g/dL (6.4-8.2)
[2022-07-05 14:12] LABS: Source, Urine Clean Catch
[2022-07-05 14:36] LABS: Appearance, Urine Clear (Clear); Bilirubin, Urine Neg (Neg); Blood, Urine Neg (Neg); Color, Urine Yellow (P-Yellow); Glucose Qualitative, Urine Neg (Neg); Ketones, Urine Neg (Neg); Leukocyte Esterase, Urine Neg (Neg); Nitrite, Urine Neg (Neg); Protein, Urine Neg (Neg); Urobilinogen, Urine NORM (Normal)
[2022-07-05 15:44] LABS: Albumin, Blood 2.5 g/dL (3.4-5.0); Albumin/Globulin Ratio 0.8 (0.8-1.8); Bilirubin, Total 0.8 mg/dL (0.1-1.0); Bun/Creatinine Ratio 17.8 (12.0-20.0); Creatinine, Blood 0.67 mg/dL (0.40-1.00); Globulin, Blood 3.1 g/dL (2.2-4.0); Potassium, Blood 3.4 mmol/L (3.5-5.5); Total Protein, Blood 5.6 g/dL (6.4-8.2)
[2022-07-05] MEDS ORDERED: AMLO5 PO (17:10)
[2022-07-05] MEDS ORDERED: OMEP20ER PO (17:11)
[2022-07-05] MEDS ORDERED: 1/2 NS 250ml250 ML (17:14)
[2022-07-05] MEDS ORDERED: HYDPAM50 PO (17:14)
[2022-07-05 18:24] LABS: Hematocrit 26.1 % (33.0-51.0); Hemoglobin 8.2 g/dL (11.5-16.0)
--- NOTE | 2022-07-05 18:34 | NUR ---
PT ARRIVED TO ICU FROM ER AT 1435 SEDATED WITH PRECEDEX INFUSING. SEE ICU-C FLOWSHEET FOR TITRATIONS. NS AND POTASSIUM IVPB ALSO INFUSING. RESPONDS TO PAIN. ON 2L NC, SR, BP STABLE. MOVED OVER TO ICU BED AND POSITIONED FOR COMFORT. SKIN ASSESSMENT COMPLETED WITH 2ND RN, NO SKIN ISSUES NOTED. TO BEDSIDE, SUPPORTIVE AND CONCERNED. EMOTIONAL SUPPORT PROVIDED, PROVIDED INFORMATION FOR ADMISSION DATA. MED REC COMPLETED WITH PAPERWORK FROM [facility] WHERE PT HAS BEEN FOR PREVIOUS 2 DAYS. IS NOT FAMILIAR WITH PT'S OUTPATIENT MEDICATIONS. REPOSITIONED EVERY 2 HOURS TO MAINTAIN SKIN INTEGRITY AND FOR PT COMFORT. DR. JAVIER TO BEDSIDE, REPEAT CMP AND MAG ORDERED AND DRAWN. REPORT TO BE GIVEN TO ONCOMING RN.
[2022-07-05 19:00] LABS: Magnesium, Blood 1.5 mg/dL (1.6-2.4)
[2022-07-05 19:01] LABS: Albumin, Blood 2.6 g/dL (3.4-5.0); Albumin/Globulin Ratio 0.8 (0.8-1.8); Bilirubin, Total 0.9 mg/dL (0.1-1.0); Bun/Creatinine Ratio 19.1 (12.0-20.0); Calcium, Blood 6.7 mg/dL (8.5-10.1); Creatinine, Blood 0.68 mg/dL (0.40-1.00); Globulin, Blood 3.2 g/dL (2.2-4.0); Potassium, Blood 3.3 mmol/L (3.5-5.5); Total Protein, Blood 5.8 g/dL (6.4-8.2)
--- NOTE | 2022-07-05 22:22 | NUR ---
ASSUMED CARE AT 1900 PT LAYING IN BED SLEEPING AT SHIFT CHANGE. SHE IS SEDATED WITH PRECEDEX INFUSING AT 1.4MCG/KG/HR; TITRATING DOWN SLOWLY D/T PT NOT BEING VERY RESPONSIVE TO VERBAL STIMULI, SEE FLOWSHEET FOR TITRATIONS; REACTIVE TO PAINFUL STIMULI; NOT FOLLOWING DIRECTIONS; CANNOT ACCURATELY OBTAIN CIWA SCORE AT THIS TIME. SPO2 >98% ON 2L NC. HR 60'S. SBP 120-140'S. PAYNE IN PLACE AND DRAINING TO GRAVITY. NS INFUSING AT 125ML/HR. SEE SHIFT ASSESSMENT FOR FULL ASSESSMENT.
[2022-07-06] VITALS (54 sets, daily range): BP systolic 96–154; BP diastolic 59–104
[2022-07-06 03:58] LABS: BASOPHILS ABSOLUTE AUTO 0.02 K/mm3 (0.00-0.23); BASOPHILS PERCENT AUTO 0 % (0-2); EOSINOPHILS ABSOLUTE AUTO 0.25 K/mm3 (0.00-0.68); EOSINOPHILS PERCENT AUTO 4 % (0-6); Hematocrit 28.1 % (33.0-51.0); IMMATURE GRAN ABSOLUTE AUTO 0.04 K/mm3 (0.00-0.10); IMMATURE GRAN PERCENT AUTO 1 % (0-1); LYMPHOCYTES ABSOLUTE AUTO 0.85 K/mm3 (0.84-5.20); LYMPHOCYTES PERCENT AUTO 14 % (21-46); MONOCYTES ABSOLUTE AUTO 0.24 K/mm3 (0.16-1.47); MONOCYTES PERCENT AUTO 4 % (4-13); Mean Corpuscular HGB 31.7 pg (26.0-34.0); Mean Corpuscular Volume 99 fL (80-100); Mean Platelet Volume 11.8 fL (9.1-12.4); NEUTROPHILS ABSOLUTE AUTO 4.56 K/mm3 (1.96-9.15); NEUTROPHILS PERCENT AUTO 77 % (41-73); Platelet Count 122 K/mm3 (150-400); RDW Coefficient Variation 16.4 % (11.7-14.2); RDW Standard Deviation 58.7 fL (35.1-46.3); Red Blood Cell Count 2.84 M/mm3 (3.80-5.20); White Blood Cell Count 5.96 K/mm3 (4.00-11.30)
[2022-07-06 04:26] LABS: Albumin, Blood 2.7 g/dL (3.4-5.0); Albumin/Globulin Ratio 0.8 (0.8-1.8); Bilirubin, Total 0.8 mg/dL (0.1-1.0); Bun/Creatinine Ratio 21.8 (12.0-20.0); Calcium, Blood 6.8 mg/dL (8.5-10.1); Creatinine, Blood 0.5 mg/dL (0.40-1.00); Globulin, Blood 3.3 g/dL (2.2-4.0); Potassium, Blood 3.1 mmol/L (3.5-5.5)
--- NOTE | 2022-07-06 04:33 | NUR ---
UPDATE DR PATEL IN THE UNIT; NOTIFIED HIM OF MORNING POTASSIUM 3.1; NEW ORDERS PROVIDED FOR 40MEQ OF KCL IV X1.
--- NOTE | 2022-07-06 06:40 | NUR ---
END OF SHIFT SUMMARY AROUND 0300 PT BECAME MORE ALERT AND AWAKE TO VERBAL STIMULATION; SHE IS FORMING WORDS AND MAKING SMALL SENTENCES; CAN ANSWER QUESTIONS BUT NOT ALWAYS APPROPRIATLY; CIWA 25 AFTER WAKING, PRN 1 MG ATIVAN GIVEN AND PRECEDEX TITRATED UP TO 1.3MCG/KG/HR. CONT TO BE ON 2L NC; NEEDS TO BE ENCOURAGED TO COUGH AT TIMES. AFEBRILE. HR 70'S. SBP 120-140'S. PAYNE IN PLACE WITH 1750OUT. NS INFUSING AT 125ML/HR. WILL REPORT TO AM RN WHEN AVAIALBLE.
[2022-07-06 12:57] LABS: Bun/Creatinine Ratio 21.8 (12.0-20.0); Calcium, Blood 6.6 mg/dL (8.5-10.1); Creatinine, Blood 0.41 mg/dL (0.40-1.00); Magnesium, Blood 1.5 mg/dL (1.6-2.4); Potassium, Blood 3.5 mmol/L (3.5-5.5)
--- NOTE | 2022-07-06 18:19 | NUR ---
END OF SHIFT SUMMARY PT HAS BEEN INTERMITTENTLY ANXIOUS, CIWA RANGING FROM 26-29. ADMITS TO HEADACHE AND MILD NAUSEA. YELLS OUT, HALLUCINATING AND REACHING FOR THINGS THAT ARE NOT THERE. ATEEMPTED TO REORIENT APPROPRIATE. PRECEDEX DRIP CONTINUED. PRN ATIVAN IV GIVEN FOR CIWA SCORES. UPPER AIRWAY SECRETIONS CLEAR WITH COUGH. O2 SAT 92% ON ROOM AIR, PLACED ON 2L NC TO MAINTAIN O2 SAT > 94%. PT ASKING FOR ALCOHOL, ATTEMPTING TO BLOW INTO A BREATHILIZER WITH HER BLANKET. REPOSITIONED OFTEN FOR COMFORT AND TO MAINTAIN SKIN INTEGRITY, PT ABLE TO HELP OCCASIONALLY. ENCOURAGED TO COUGH AND DEEP BREATHE. MAG AND K REPLACED X2, NOTIFIED OF ALL CHEMISTRY VALUES, WANTS MAG NORMALIZED BEFORE REPLACING CALCIUM. UPDATED VIA PHONE, NO VISITORS TO BEDSIDE TODAY.
--- NOTE | 2022-07-06 20:00 | NUR ---
ASSUMED CARE AT 1900 PT LAYING IN BED SLEEPING AT SHIFT CHANGE. HER BEHAVIOR IS VERY LABILE; CIWA 25-27; PRECEDEX INFUSING AT 1.4MCG/KG/HR; ATIVAN GIVEN BUT IS AT THE MAX AMOUNT FOR 24 HOURS; SHE CAN BE VERY AGITATED, GRABBING/HITTING STAFF, CURSING AT THEM, AND PULLING AT LINES AND CORDS; SPEECH IS HARD TO FOLLOW; SHE IS HAVING A VARIETY OF DELUSIONS; NOT ABLE TO SUCCESSFULLY REORIENT AND IS NOT REDIRECTABLE. SPO2 >95% ON 2L NC; WHEN DEEP ASLEEP AUDITORY GURGLING HEARD; MOST OF THE TIME SHE IS ABLE TO CLEAR THIS WHEN SHE IS ASK TO COUGH OR SHE COUGHS SPONTANIOUSLY. HR 70'S. BP STABLE. AFEBRILE. PAYNE IN PLACE AND DRAINING TO GRAVITY. NS INFUSING AT 125ML/HR. POTASSIUM BEING REPLACED NOW FROM. SEE SHIFT ASSESSMENT FOR FULL ASSESSMENT.
--- NOTE | 2022-07-06 22:00 | NUR ---
UPDATE CALL MADE TO DR GILLILAND AT 2139 REGARDING CONTINUED AGITATION AND CIWA 25 AND UNABLE TO GIVE ATIVAN. NEW ORDERS PROVIDED FOR PHENOBARBITAL IM.
[2022-07-07] VITALS (58 sets, daily range): BP systolic 90–161; BP diastolic 55–108
--- NOTE | 2022-07-07 | NUR ---
UPDATE PT IS EITHER SLEEPING AND CHALLENGING TO AROUSE OR AGITATED WITH A CIWA OF 25; VERY CHALLENGING TO REDIRECT WHEN AGITATED; AGITATION SPONTANIOUS AND ALSO WHEN VERBALLY STIMULATED e.g. WHEN ASKED TO COUGH D/T INCREASED GURGLING WHILE SLEEPING. CURRENTLY RESTING COMFORTABLY AGAIN. WCTM.
--- NOTE | 2022-07-07 03:50 | NUR ---
UPDATE CALL MADE TO DR PATEL REGARDING CONSTANT RESTLESSNESS AND AGITATION FOR OVER 45 MIN; CIWA 27. ATTEMPTS MADE TO REPOSITION, GIVE MOUTH SWABS, REDIRECT, AND ADDRESS NEEDS BUT UNSUCCESSFUL. STILL CANNOT GIVE ATIVAN D/T REACHING MAX AMOUNT IN 24 HR. NEW ORDERS PROVIDED FOR ZYPREXA IM NOW.
[2022-07-07 04:40] LABS: BASOPHILS ABSOLUTE AUTO 0.02 K/mm3 (0.00-0.23); BASOPHILS PERCENT AUTO 0 % (0-2); EOSINOPHILS PERCENT AUTO 2 % (0-6); Hematocrit 25.5 % (33.0-51.0); Hemoglobin 8.1 g/dL (11.5-16.0); IMMATURE GRAN ABSOLUTE AUTO 0.02 K/mm3 (0.00-0.10); IMMATURE GRAN PERCENT AUTO 0 % (0-1); LYMPHOCYTES ABSOLUTE AUTO 0.82 K/mm3 (0.84-5.20); LYMPHOCYTES PERCENT AUTO 14 % (21-46); MONOCYTES ABSOLUTE AUTO 0.42 K/mm3 (0.16-1.47); MONOCYTES PERCENT AUTO 7 % (4-13); Mean Corpuscular HGB 31.5 pg (26.0-34.0); Mean Corpuscular HGB Conc 31.8 g/dL (31.5-36.5); Mean Corpuscular Volume 99 fL (80-100); Mean Platelet Volume 11.3 fL (9.1-12.4); NEUTROPHILS ABSOLUTE AUTO 4.52 K/mm3 (1.96-9.15); NEUTROPHILS PERCENT AUTO 77 % (41-73); Platelet Count 131 K/mm3 (150-400); RDW Coefficient Variation 17.4 % (11.7-14.2); RDW Standard Deviation 60.5 fL (35.1-46.3); Red Blood Cell Count 2.57 M/mm3 (3.80-5.20)
[2022-07-07 04:52] LABS: Bun/Creatinine Ratio 19.4 (12.0-20.0); Calcium, Blood 6.8 mg/dL (8.5-10.1); Creatinine, Blood 0.41 mg/dL (0.40-1.00); Magnesium, Blood 1.6 mg/dL (1.6-2.4); Potassium, Blood 3.7 mmol/L (3.5-5.5)
--- NOTE | 2022-07-07 05:27 | NUR ---
UPDATE NOTIFIED DR PATEL REGARDING CALCIUM OF 6.8 THIS AM. NEW ORDERS PROVIDED FOR CALCIUM GLUCONATE 1 GRAM IV X1.
--- NOTE | 2022-07-07 06:18 | NUR ---
END OF SHIFT SUMMARY SINCE GIVING THE ZYPREXA PT IS SLIGHTLY LESS RESTLESS BRINGING CIWA DOWN TO 22 FOR ABOUT AN HOUR AND A HALF. SHE THEN BECAME AGITATED AND RESTLESS AGAIN ATTEMPTING TO GET OUT OF BED; ATIVAN NOW AVAILABLE AND 4MG GIVEN; PT NOW RESTING COMFORTABLY; CIWA'S RANGED THROUGH THE NIGHT 22-27. SPO2 >95% ON 2L NC; GURGLING PRESENT WHEN DEEP SLEEPING, OCCATIONALLY WILL CLEAR SPONTANIOUSLY, OTHER TIME WILL CLEAR WHEN ASKED. AFEBRILE. HR 70'S. SBP 110-130. PAYNE IN PLACE WITH 600ML OUTPUT. NS INFUSING AT 125ML/HR. WILL REPORT TO AM RN WHEN AVAILABLE.
--- NOTE | 2022-07-07 08:00 | NUR ---
INITIAL ASSESSMENT PATIENT LYING SLEEPING UPON ENTERING ROOM. PATIENT WAKES OCCASIONALLY TO VERBAL STIMULI BUT ALWAYS TO NOXIOUS STIMULI. PATIENT LABILE. PATIENT IRRITABLE, ANGRY AND ANXIOUS WITH NURSING CARE. PATIENT CONFUSED. CIWA SCORE OF 16 THIS AM. NO VISIBLE AUDITORY OR VISUAL HALLUCINATIONS NOTED AT THIS TIME. PATIENT ON PRECEDEX TRIP AT MAX RATE OF 1.4 MCG/ KG/ HOUR. WHEN AWAKE PATIENT IS TRYING TO PULL AT LINES/ CORDS AND NURSE WHEN TRYING TO PERFORM AM/ ORAL CARE. PATIENT IS ABLE TO FOLLOW COMMANDS OCCASIONALLY SUCH "OPEN MOUTH" AND "COUGH". PATIENT MUMBLES ONE WORD RESPONSES. PATIENT WEAK BUT ABLE TO MOVE ALL EXTREMITIES. NO SIGNS OF PAIN NOTED AT THIS TIME. PATIENT AFEBRILE. PATIENT ON 2 L NC TO KEEP SATS 90% AND GREATER. AUDITORY GURGLING/ SNORING NOTED FROM PATIENT'S DOORWAY. PATIENT INSTRUCTED TO COUGH BUT WAS NOT ABLE TO CLEAR. NT SUCTION PERFORMED AND NO SPUTUM OUT. EXPIRATORY COARSENESS AND RHONCHI NOTED IN ALL LUNG LOBES. COUGH LOOSE BUT NO SPUTUM SEEN. PATIENT IN SR, HR 60S TO 70S. SBP 120S TO 140S. PATIENT NPO. DATE OF LAST BM UNKNOWN. PAYNE DRAINING DARK YELLOW COLORED URINE. SKIN APPEARS C/D/I. NS INFUSING AT 125 MLS/ HOUR. BED LOW, CALL LIGHT IN REACH, BED ALARM ON, CAMERA MONITORING ON. WILL CONTINUE TO MONITOR PATIETN FREQUENTLY THROUGHOUT SHIFT.
--- NOTE | 2022-07-07 09:00 | NUR ---
DR. JAVIER UPDATED ON PATIENT STATUS. IN ROOM TO HEAR GURGLING PATIENT IS MAKING. INFORMED THAT PATIENT SOMETIMES ABLE TO CLEAR WITH COUGHING AND OTHER TIMES NOT. STATES IS UPPER AIRWAY. DR. JAVIER STATED HE WOULD LIKE TO TRY AND STICK SOLELY WITH PRECEDEX AND IF PATIENT PICKING AT LINES AND CORDS THEN TO PLACE PATIENT IN RESTRAINTS. DR. JAVIER STATED HE WOULD PREFER RESTRAINTS OVER PRN BENZOS AT THIS TIME.
--- NOTE | 2022-07-07 12:00 | NUR ---
PATIENT AFEBRILE. HR IN THE 60S. SBP 140S TO 150S. PATIENT SATTING 90% AND GREATER ON RA. CIWA SCORE OF 12. PATIENT REMAINS ON PRECEDEX DRIP. NO OTHER ACUTE CHANGES TO NOTE ON AT THIS TIME. WILL CONTINUE TO MONITOR.
--- NOTE | 2022-07-07 16:00 | NUR ---
PATIENT AFEBRILE. HR IN THE 70S. SBP 90S TO 140S. NEURO SLIGHTLY IMPROVED. PATIENT REMAINS CONFUSED BUT NOW ASKING QUESTIONS WHERE SHE IS AND WHATS GOING ON. PATIENT OCCASIONALLY REDIRECTABLE FOR SHORT PERIODS OF TIME. PATIENT REMAINS BEING WATCHED CLOSELY AND BY CAMERA FOR PULLING AT LINES/ CORDS. NO OTHER ACUTE CHANGES TO NOTE ON AT THIS TIME.
--- NOTE | 2022-07-07 18:31 | NUR ---
SHIFT SUMMARY PATIENT REMAINED ON PRECEDEX DRIP FOR ETOH WITHDRAWALS. CIWA SCORES 12 TO 16. PATIENT LABILE, IRRITABLE, ANGRY, ANXIOUS WITH NURSING CARE. PATIENT IS A LITTLE MORE AWAKE AND SLIGHTLY EASIER TO UNDERSTAND THAN THIS AM. PATIENT REMAINS CONFUSED. SPEECH REMAINS MUMBLED. PATIENT HAS REMAINED AFEBRILE. PATIENT HAS NOT HAD ANY COMPLAINTS OF PAIN. PATIENT REDIRECTED AND REMINDED NUMEROUS TIMES THROUGHOUT SHIFT TO NOT PULL AT LINES AND CORDS. PRN ATIVAN GIVEN OT THIS AM. PATIENT HAD LOUD AUDITORY GURGLING THIS AM; GURGLING HAS IMPROVED NOW THAT PATIENT MORE AWAKE. PATIENT ON 2 L NC THIS AM AND SOON AFTER PLACED ON RA; SATS HAVE REMAINED 90% AND GREATER. PATIENT HAS REMAINED IN SR, HR 60S TO 70S. SBP 90S TO 150S. PATIENT HAS REMAINED NPO. NO BM THIS SHIFT. NO CHANGES TO SKIN NOTED. PATIENT REPOSITIONED T/O SHIFT. COMPLETE BED BATH PERFORMED. PATIENT REMAINS ON PRECEDEX AT 1.4 MCG/ KG/ HOUR AND NS AT 125 MLS/ HOUR. PATIENT RECEIVED 1G CALCIUM THIS AM AND 2G MAG LATER TODAY FOR ELECTROLYTE REPLACEMENTS. NO SIGNS OF PAIN OR DISCOMFORT NOTED AT THIS TIME. BED LOW, CALL LIGHT IN REACH, BED ALARM ON. REPORT WILL BE GIVEN TO ASSUMING REGISTERED CLINICAL DIETITIAN NURSE SHORTLY.
--- NOTE | 2022-07-07 19:15 | NUR ---
ASSUMED CARE OF PT AT 1915. PT RESTING IN BED AT THIS TIME. REPORT FROM [facility] SILVERIO OF 12 CURRENTLY WITH LIBRIUM GIVEN PER EMAR. NO OXYGEN SUPPLEMENTATION NEEDED AT THIS TIME. >93% ON RA. MULT PVC'S NOTED WITH TACHY EPISODES. LEFT ARM AND RIGHT ARM IV'S PATENT AND FLUSING OR INFUSING WELL. NO NOTABLE SWELLING OR ISSUES AT THIS TIME. NS @ 125 MLS/HR. SEE FULL ASSESSMENT FOR FURTHER DETAILS.
--- NOTE | 2022-07-07 23:14 | NUR ---
ASSUMED CARE AT 1900 PT LAYING IN BED SLEEPING AT SHIFT CHANGE. SHE IS LESS RESTLESS THAN PREVIOUS SHIFT; CIWA 14; MUMBLES WORDS MOST OF THE TIME BUT WILL OCCATIONALLY BE VERY CLEAR AND LOUD; SHE MODERATLY FOLLOWS DIRECTIONS; WITH VERBAL CUES SHE WAS ABLE TO HOLD A TOOTHBRUSH AND BRUSH TEETH; PRECEDEX INFUSING AT 1.4MCG/KG/HR. AFEBRILE. SPO2 >95% ON RA; MUCH LESS GURGLY THAN THE PREVIOUS NIGHT. HR 60'S. SBP 130-150'S. PAYNE IN PLACE AND DRAINING TO GRAVITY. NS INFUSING AT 125ML/HR. SEE SHIFT ASSESSMENT FOR FULL ASSESSMENT.
[2022-07-08] VITALS (33 sets, daily range): BP systolic 96–160; BP diastolic 59–99
--- NOTE | 2022-07-08 02:30 | NUR ---
UPDATE MANY ATTEMPTS MADE TO NOT HAVE PT IN RESTRAINTS BUT SHE CONT TO PULL AT LINES AND CORDS, BE IMPULSIVE, AND HAS ATTEMPTED TO GET OUT OF BED, THROWING HER LEGS OVER THE SIDE RAILS. SHE EASILY FORGETS REDIRECTIONS, HAS BEEN REORIENTED EVERY TIME, PERSONAL NEEDS ASSESSED AND ADDRESSED, CONCEALED LINES AND TUBING, AND ATTEMPTED DISTRACTION WITH TV OR WHITE NOISE; BED ALARM ON AND CENTRAL MONITORING ON. PRECEDEX CONT TO INFUSE AT 1.4MCG/KG/HR. PT IS NOW IN SOFT BILATERAL WRIST RESTRAINTS.
[2022-07-08 05:29] LABS: BASOPHILS ABSOLUTE AUTO 0.01 K/mm3 (0.00-0.23); BASOPHILS PERCENT AUTO 0 % (0-2); EOSINOPHILS ABSOLUTE AUTO 0.12 K/mm3 (0.00-0.68); EOSINOPHILS PERCENT AUTO 3 % (0-6); Hematocrit 25.2 % (33.0-51.0); IMMATURE GRAN ABSOLUTE AUTO 0.03 K/mm3 (0.00-0.10); IMMATURE GRAN PERCENT AUTO 1 % (0-1); LYMPHOCYTES ABSOLUTE AUTO 0.89 K/mm3 (0.84-5.20); LYMPHOCYTES PERCENT AUTO 20 % (21-46); MONOCYTES ABSOLUTE AUTO 0.43 K/mm3 (0.16-1.47); MONOCYTES PERCENT AUTO 10 % (4-13); Mean Corpuscular HGB 31.5 pg (26.0-34.0); Mean Corpuscular HGB Conc 31.7 g/dL (31.5-36.5); Mean Corpuscular Volume 99 fL (80-100); Mean Platelet Volume 11.2 fL (9.1-12.4); NEUTROPHILS ABSOLUTE AUTO 2.96 K/mm3 (1.96-9.15); NEUTROPHILS PERCENT AUTO 67 % (41-73); Platelet Count 132 K/mm3 (150-400); RDW Coefficient Variation 17.7 % (11.7-14.2); RDW Standard Deviation 61.5 fL (35.1-46.3); Red Blood Cell Count 2.54 M/mm3 (3.80-5.20); White Blood Cell Count 4.44 K/mm3 (4.00-11.30)
[2022-07-08 05:48] LABS: Bun/Creatinine Ratio 13.3 (12.0-20.0); Calcium, Blood 7.2 mg/dL (8.5-10.1); Creatinine, Blood 0.38 mg/dL (0.40-1.00); Magnesium, Blood 1.9 mg/dL (1.6-2.4); Potassium, Blood 3.1 mmol/L (3.5-5.5)
--- NOTE | 2022-07-08 06:11 | NUR ---
UPDATE NOTIFIED DR PATEL REGARDING POTASSIUM OF 3.1 THIS AM. NEW ORDERS PROVIDED FOR 60MEQ KCL IV X1.
--- NOTE | 2022-07-08 07:27 | NUR ---
END OF SHIFT SUMMARY SINCE PUT IN RESTRAINTS, PT IS EITHER SLEEPING OR PULLING AGAINST RESTRAINTS; HAD ONE MOMENT OF CLARITY WHERE SHE KNEW SHE WAS IN [place] AND THE YEAR; TRIALED RESTRAINTS OFF WHILE IN THE ROOM AND PT STARTED GRABBING AT THE AIR AND THEN AT IV ACCESS; PLACED BACK IN RESTRAINTS; CIWA'S 14-19; PRECEDEX INFUSING AT 1.4MCG/KG/HR. AFEBRILE. SPO2> 95% ON RA. HR 70'S. SBP 130-150'S. PAYNE IN PLACE WITH 1200ML OUTPUT. NS INFUSING AT 125ML/HR. REPORT GIVEN TO AM RN.
--- NOTE | 2022-07-08 07:48 | NUR ---
CARE OF PT ASSUMED AT 0700. PT AWAKE AND CONFUSED. ORIENTED TO SELF AND YEAR. PT STATES SHE IS IN [place], AND DOES NOT KNOW THAT SHE IS IN A HOSPITAL. PT IS HAVING VISUAL HALLUCINATIONS.(GRABS AT AIR, SPEAKS TO PEOPLE THAT AE NOT IN ROOM) SPPECH IS SLURRED/GARBLED. PRECEDEX INITIALLY AT 1.4MCG, DECREASED TO 0.3MCG. NS AT 125CC/HR. 60MEQ POTASSIUM INFUSING. PT HAS EXP WHEZE IN UPPER LOBS. SATS 96% ON RA.
--- NOTE | 2022-07-08 08:30 | NUR ---
DR JAVIER AND DR SALEH AT BEDSIDE. PT CONFUSED AND ANGRY, YELLING OUT, THREW BP CUFF. SPEECH CLEARING, WILL CONTINUE TO DECREASE SEDATION TOLERATED.
--- NOTE | 2022-07-08 11:45 | NUR ---
PT'S CONVERSATION STARTING TO BE MORE CLEAR/APPROPRIATE. LIBRIUM GIVEN FOR CIWA 24.(PT ANXIOUS/RESTLESS, ACTIVE HALLUICINATIONS, STARTIMG TO BECOME MORE ORIENTED/APPROPRIATE) PT INCONTINENT OF >4 LARGE LIQUID STOOLS. PT VERY UPSET OVER INCONTINENCE/BED CHANGES. RECTAL TUBE EXPLAINED AND OFFERED, PT OPTED TO TRY RECTAL TUBE. PRECEDEX HAS BEEN OFF SINCE 0900, DR SALEH UPDATED, LIBRIUM AND PT/OT ORDERED.
--- NOTE | 2022-07-08 14:30 | NUR ---
PT ABLE TO STAND WITH O.T./2 PERSON ASSIST. PT TO CHAIR USING LIFT. PT MUCH MORE ORIENTED. ABLE TO RETAIN INFORMATION GIVEN. CIWA 12; MAINLY FOR HALLUCINATIONS WHICH ARE IMPROVING. VERY MILD TREMOR. HAIR WASHED, BRUSHED, AND BRAIDED. PRECEDEX REMAINS OFF.
--- NOTE | 2022-07-08 15:32 | NUR ---
PT C/O PAIN, EPIGASTRIC AREA, WORSE W DEEP BREATH. SIMULAR TO HER HIATAL HERNIA PAIN. DR SALEH CALLED AND IS AT BEDSIDE SEEING PT. GI COCKTAIL ORDERED, ALONG W EKG, TROPONIN, TORADOL, AND SENDING STOOL TO R/O CDIFF.
--- NOTE | 2022-07-08 16:52 | NUR ---
PT DENIES C/O CHEST PAIN. PT BACK TO BED USING LIFT. PT TEARFUL, OVERWHELMED, ANXIOUS. LIBRIUM GIVEN FOR ANXIETY AND MILD HALLUCINATIONS(BUGS).
[2022-07-09] VITALS: BP 115/63
[2022-07-09 03:48] LABS: BASOPHILS ABSOLUTE AUTO 0.02 K/mm3 (0.00-0.23); BASOPHILS PERCENT AUTO 0 % (0-2); EOSINOPHILS ABSOLUTE AUTO 0.09 K/mm3 (0.00-0.68); EOSINOPHILS PERCENT AUTO 2 % (0-6); Hematocrit 26.7 % (33.0-51.0); Hemoglobin 8.5 g/dL (11.5-16.0); IMMATURE GRAN ABSOLUTE AUTO 0.04 K/mm3 (0.00-0.10); IMMATURE GRAN PERCENT AUTO 1 % (0-1); LYMPHOCYTES ABSOLUTE AUTO 1.48 K/mm3 (0.84-5.20); LYMPHOCYTES PERCENT AUTO 24 % (21-46); MONOCYTES ABSOLUTE AUTO 0.68 K/mm3 (0.16-1.47); MONOCYTES PERCENT AUTO 11 % (4-13); Mean Corpuscular HGB 31.3 pg (26.0-34.0); Mean Corpuscular HGB Conc 31.8 g/dL (31.5-36.5); Mean Corpuscular Volume 98 fL (80-100); NEUTROPHILS ABSOLUTE AUTO 3.87 K/mm3 (1.96-9.15); NEUTROPHILS PERCENT AUTO 63 % (41-73); Platelet Count 161 K/mm3 (150-400); RDW Coefficient Variation 18.4 % (11.7-14.2); RDW Standard Deviation 63.8 fL (35.1-46.3); Red Blood Cell Count 2.72 M/mm3 (3.80-5.20); White Blood Cell Count 6.18 K/mm3 (4.00-11.30)
[2022-07-09 04:15] LABS: Bun/Creatinine Ratio 12.5 (12.0-20.0); Calcium, Blood 7.6 mg/dL (8.5-10.1); Creatinine, Blood 0.4 mg/dL (0.40-1.00); Potassium, Blood 3.2 mmol/L (3.5-5.5)
--- NOTE | 2022-07-09 05:28 | NUR ---
END OF SHIFT SUMMARY PT DID NOT REST MOST OF THE NIGHT. A/O X1. PT UNABLE TO REMEMBER SHE IS AT HOSPITAL, HOWEVER SHE IS FOLLOWING COMMANDS. DOES NOT USE CALL LIGHT, ONLY YELLS OUT WHEN SHE NEEDS HELP. PT HALUCINATED ALL NIGHT. PT REPORTS SEEING TIN MEN IN HER ROOM AND CONVERSATES WITH THEM. PT ALSO REPORTS SEEING ANTS ON THE CEILING AND CATS ON THE JARRELL. SPO2 >93% ON RA SINUS TACHY WITH MULTI PVC'S. HR 110'S-120'S. SBP 100'S. DENIES CP OR SOB. ONLY LIBRIUM GIVEN FOR CIWA'S THIS SHIFT. CIWA RANGING FROM 7-12, WITH CURRENT CIWA AT 8. NO TREMORS, SWEATING, NAUSEA, VOMITTING. PT IS HAVING PURE LIQUID STOOL AND IS INCONITENT OF BOWEL AT THIS TIME. RECTAL TUBE WAS PLACED ON DAY SHIFT T-1. PAYNE CATH PATENT AND DRAINING TO GRAVITY WITH YELLOW/STRAW COLLORED URINE PRESENT. PT IS ABLE TO EAT AND DRINK FLUIDS WITH SOME DIFFICULTY. PT NEEDS TO SIT AT 90 DEGREES AND MONITORED FOR ASPIRATION. WILL CONTINUE TO MONITOR UNTIL REPORT GIVEN TO AM RN.
--- NOTE | 2022-07-09 08:00 | NUR ---
INITIAL ASSESSMENT PATIENT ALERT AND ORIENTED TO ALL QUESTIONS THIS AM. PATIENT IS HAVING VISUAL HALLUCINATIONS OF PEOPLE IN HER ROOM. CIWA SCORE OF 6. PATIENT HAS RAPID SPEECH. PATIENT ANXIOUS ABOUT RECTAL TUBE. RECTAL TUBE REMOVED. PATIENT CONTINUES TO HAVE LOOSE STOOL. ATTENDS PLACED AND PATIENT ABLE TO USE CALL LIGHT TO CALL FOR HELP TO USE BED ABERNATHY. PATIENT WEAK BUT ABLE TO MOVE ALL EXTREMITIES AND HELP WITH REPOSITIONING. PATIENT AFEBRILE. PATIENT SATTING 90% AND GREATER ON RA. PATIENT IN ST WITH OCCASIONAL PVCS. HR LOW 100S TO 1-TEENS. SBP IN THE 120S. PATIENT ON REGULAR DIET BUT HAS POOR APPETITE. PAYNE IN PLACE DRAINING LIGHT YELLOW COLORED URINE. SCATTERED BRUISES NOTED. NS INFUSING AT 125 MLS/ HOUR. 40 MEQ KCL INFUSING FOR POTASSIUM OF 3.2 THIS AM. BED LOW, CALL LIGHT IN REACH. WILL CONTINUE TO MONITOR PATIENT FREQUENTLY THROUGHOUT SHIFT.
[2022-07-09 08:12] VITALS: BP 124/97
[2022-07-09 08:13] VITALS: BP 124/97
[2022-07-09 09:53] LABS: C DIFFICILE DNA NEGATIVE (Negative)
--- NOTE | 2022-07-09 10:35 | NUR ---
SHIFT SUMMARY PATIENT REMAINED ABLE TO ANSWER ALL ORIENTATION QUESTIONS. PATIENT REMAINED WITH VISUAL HALLUCINATIONS OF PEOPLE IN HER ROOM. PATIENT REMAINED ANXIOUS WITH NEEDING TO USE BED ABERNATHY FOR LOOSE BMS. CIWA SCORE OF 6. PATIENT AFEBRILE. PATIENT REMAINED SATTING 90% AND GREATER ON RA. PATIENT REMAINED IN ST WITH PVCS. HR AND BP STABLE. PATIENT HAD 2 LOOSE, BROWN BMS THIS SHIFT. C.DIFF CULTURE CAME BACK NEGATIVE THIS AM. PATIENT ONLY ATE 1 BITE OF BREAKFAST AND THEN DID NOT WANT ANYMORE. [place] REMOVED THIS SHIFT. ATTENDS IN PLACE BUT PATIENT IS ABLE TO USE CALL LIGHT TO CALL FOR BED ABERNATHY ASSISTANCE. NO CHANGES TO SKIN NOTED. PATIENT ABLE TO ROLL SELF FROM HIP TO HIP IN BED. NS DECREASED FROM 125 MLS/ HOUR TO TKO. POTASSIUM REPLACEMENT REMAINS INFUSING. PATIENT HAS BEEN TRANSFERRED TO MEDICAL FLOOR, ROOM 349. ALL BELONGINGS SENT WITH PATIENT INCLUDING ANKLET FOUND IN LOCKBOX. PATIENT'S , MAREK, CALLED AND INFORMED OF TRANSFER. TRANSFER COMPLETE.
--- NOTE | 2022-07-09 16:14 | NUR ---
Pt. is awake in bed and welcomes my visit. Pt. is unsettled by discomfort and verbalizes that she has a bad cough. listen with empathy and a calming presence. Facilitate a life review which reveals some difficult family dynamics. Pt. verbalizes that these relationships may contribute to her drinking. Consider matters of mehnaz and belief as well as recovery resources in her community. Pt. displays evidence of openness and trust. A cardiac team arrived to some assesment of the Pt. and this ancillary services manager therapy excused himself. Will attempt to follow up with Pt. before the end of shift.
[2022-07-09 16:16] VITALS: BP 144/124
--- NOTE | 2022-07-09 17:20 | NUR ---
SHIFT SUMMARY- PT C/O CHEST PAIN, NOTIFIED ANXIOUS AND HALLUCINATING THROUGHOUT SHIFT. PT STATED SHE SEES "BUGS" ON THE CEILING AND BED. ASSESSED CIWA, 14, NOTIFIED MEDICATED PER EMAR. PT C/O OF SOB, SATING AT 96-98% ON RA, DR NOTIFIED. PT CONTINENT/ INCONTINENT. WILL CONTINUE TO MONITOR. CALL LIGHT IN REACH. BED/CHAIR ALARM ON FOR SAFETY.
[2022-07-09 17:22] LABS: Bun/Creatinine Ratio 4.5 (12.0-20.0); Calcium, Blood 8.2 mg/dL (8.5-10.1); Creatinine, Blood 0.44 mg/dL (0.40-1.00); Magnesium, Blood 1.3 mg/dL (1.6-2.4); Potassium, Blood 3.4 mmol/L (3.5-5.5)
[2022-07-09 19:22] VITALS: BP 149/85
[2022-07-10 02:55] VITALS: BP 157/82
[2022-07-10 03:22] VITALS: BP 145/66
[2022-07-10 05:15] LABS: Bun/Creatinine Ratio 4.6 (12.0-20.0); Calcium, Blood 7.8 mg/dL (8.5-10.1); Creatinine, Blood 0.44 mg/dL (0.40-1.00); Potassium, Blood 3.2 mmol/L (3.5-5.5)
--- NOTE | 2022-07-10 05:59 | NUR ---
SUMMARY: PT A/OX3-4 BUT IS INTERMITTENTLY CONFUSED AND CONT'S TO BE VERY ANXIOUS AT TIMES. SHE IS AWARE OF VISUAL HALLUCINATIONS (SEEING BUGS AND BIRDS) BUT REQUIRES REDIRECTION AT TIMES. CIWA'S WERE 8-9 THIS SHIFT W/LIBRIUM AND ATIVAN PRN RECIEVED FOR SOME IMPROVEMENT. PT INTERMITTENTLY WOULD BECOME FEARFUL RE: ETOH W/D SYMPTOMS BUT CALMED W/REASSURANCE AND THERAPEUTIC COMMUNICATION. SHE C/O NAGGING COUGH W/RELATED SORE THROAT AND RIB PAIN, ROBITUSSIN DM RECIEVED PRN. PT ALSO COMMENCED ON ALBUTEROL AND BD PROTOCOL FOR WHEEZING AND RT PLACED HER ON 1L O2 FOR SOB/COMFORT. SHE WAS CONTINENT T/O NOCTE AND WAS UP W/SBA AND FWW TO TOILET. DIARRHEA HAD INITIALLY SUBSIDED BUT HAS BEGUN AGAIN THIS EARLY AM. PT REMAINS TACHY ON TELEMETRY AT 100'S BPM W/OCC PVC'S BUT HAD X1 EPISODE 6 BEAT RUN OF V.TACH THIS SHIFT. SHE WAS ASYMPTOMATIC OF CARDIAC DISTRESS AND VITALS REMAINED STABLE, SHRIMP PICKER MADE AWARE. NO ACUTE CHANGES. WCTM AND REPORT TO DAY RN.
[2022-07-10 06:07] LABS: Magnesium, Blood 1.1 mg/dL (1.6-2.4)
--- NOTE | 2022-07-10 06:15 | NUR ---
POTASSIUM DOWN TO 3.2 THIS AM W/40MEQ KCL IV RX'D AND COMMENCED.
--- NOTE | 2022-07-10 06:34 | NUR ---
CRITICAL MAGNESIUM NOW 1.1, WAS 1.3. PAGED AND AWAITING RETURN CALL. WILL ENSURE DAY RN IS AWARE.
--- NOTE | 2022-07-10 06:53 | NUR ---
ATTEMPTED TO PAGE MD AGAIN AND STILL AWAIT RETURN CALL.
[2022-07-10 07:15] VITALS: BP 147/93
--- NOTE | 2022-07-10 14:10 | NUR ---
Pt. is resting in a recliner but responds when I enter ther room. Pt. welcomes my visit. Pt. is unsettled by what she verbalizes as her occassional hallucinations. Listen with emapthy and remind Pt. that she had shared this info during the previous visit. Pt. displays occassional somnilence. Prayed with Pt. especially since I wasn't able to on the previous visit. Pt. verbalized gratitude for the spiritual care visit.
[2022-07-10 17:03] VITALS: BP 145/71
[2022-07-10 19:21] VITALS: BP 141/79
--- NOTE | 2022-07-10 19:59 | NUR ---
SUMMARY- PT ALERT AND ORIENTED X4. CONT HAVING VISUAL HALLUCINATIONS, BUGS ON THE JARRELL. DENIES HEADACHE, DENEIS TACTILE DISTURBANCE, HAS BECOME LESS ANXIOUS AND AGITATES THE DAY PROGRESSED. GIVEN LIBRIUM 25MG AT 0836 AND 1243. TOLERATING SOLID FOODS, FOR HER STATES THE MOST SHE'S EATEN IN AWHILE. TAKING IN FLUIDS. HAD MG AND KCL REPLACEMENT TODAY. TELE ST WITH PVC, NO V-TACH THIS SHIFT. PT HAD ONE EPISODE OF COUGHING THAT BECAME TICKELLY, CALLED RN FOR ALB INHALER, GIVEN ROBITUSSIN THAT PT STATES CALMED HER COUGH SPELL. PT NAPPED FOR A FEW HOURS AFTER LUNCH, RN NOTED OBSTRUCTIVE SLEEP APNEA EPISODES. PT ON CAMERA, REMINDED TO USE CALL LIGHT BUT CONTINUES TO GET UP UNATTENDED, BUT PT IS SLOW AND STEADY.
--- NOTE | 2022-07-11 04:33 | NUR ---
SHIFT SUMMARY ADMITTED FOR ALCOHOL WITHDRAWALS. FULL CODE. CIWAS HAVE BEEN <8 THIS SHIFT. TELEMETRY: NSR @ 87 BPM W/PVC'S. SHE PREVIOUSLY RAN TACHYCARDIC. SHE IS STANDBY ASSIST - BRP. REGULAR DIET. A&O X3-4. WHEEZING, DYSPNEA W/EXERTION. SHE IS DIRECTABLE AND COOPERATIVE WITH CARE. SLEEPING THROUGHOUT MOST OF SHIFT. ON RA. SHE DOES MUMBLE WHEN SPEAKING.
[2022-07-11 04:43] VITALS: BP 112/63
[2022-07-11 05:39] LABS: Bun/Creatinine Ratio 3.7 (12.0-20.0); Calcium, Blood 8.6 mg/dL (8.5-10.1); Creatinine, Blood 0.81 mg/dL (0.40-1.00); Magnesium, Blood 2.2 mg/dL (1.6-2.4); Potassium, Blood 3.7 mmol/L (3.5-5.5)
[2022-07-11 07:37] VITALS: BP 137/76
[2022-07-11 15:40] VITALS: BP 119/51
--- NOTE | 2022-07-11 16:52 | NUR ---
SUMMARY- PT ALERT AND ORIENTED X4- MORE SLEEPY TODAY- DENIES HAVING HALLUCINATIONS TODAY. STAYED IN BED FOR BREAKFAST BUT ATE IN BED. SBA TO BATHROOM, USES CALL LIGHT AND WAITS FOR STAFF, KNOWS LIMITS. SLIGHT WEAKNESS WHEN AMBULATING. PT HAS CRACKLES IN BASE OF LUNGS, PLACED ON OXYGEN WHILE SLEEPING BECAUSE OF JUDSON ISSUES, ALSO SET UP ON CONT PULSE OX AND CPAP/BIPAP PROTOCOL FOR NOC USE. MEDICATED ONCE WITH LIBRIUM MID AFTERNOON FOR PT COMPLAINING OF ANXIOUS FEELING. UP IN CHAIR MOST OF THE AFTERNOON. CIWA'S <6 ALL DAY. WILL REPORT TO NOC RN
[2022-07-11 19:25] VITALS: BP 109/52
--- NOTE | 2022-07-12 04:07 | NUR ---
PATIENT ADMIT FOR ETOH W/D AND FALL AT [place]. TOXIC METABOLIC ENCEPHALOPATHY. CURRENTLY ON TELE 80'S SR W/MULTIFORM PVC'S. BP 109/52. ASSISTED TO BEDSIDE COMMODE X1. ABLE TO STAND WITH MILD ASSIST. STEADY ONCE ON FEET. PIVOTED AND SAT WITHOUT ASSISTANCE. PATIENT HAD A SLEEP STUDY TONIGHT W/CPAP. SLEEPING MOST OF THE NIGHT. COMPLAINED OF PAIN IN LEFT SHOULDER ONCE, RELIEVED AFTER GABAPENTIN ADMIN. IV IN LEFT FOREARM. DESATED TO 84% DURING SLEEP STUDY WHEN CPAP REMOVED FOR PIPELINE INTEGRITY ENGINEER. RETURNED TO 90'S AFTER REAPPLYING CPAP. PATIENT MUMBLES WHEN SPEAKING, BUT IS A&O X4 WHEN AWAKE.
--- NOTE | 2022-07-12 04:53 | NUR ---
CTA NOTE SHIFT SUMMARY IS LOCATED UNDER RIVET THROWER NOTE. I HAVE READ THROUGH HER DOCUMENTATION FOR THIS PATIENT AND I AGREE
[2022-07-12 04:56] VITALS: BP 128/68
--- NOTE | 2022-07-12 05:09 | NUR ---
PT STATUS STAFF REPORT PT IS CLEARER OF MENTATION THIS MORNING. SHE IS AMBULATING TO THE BATHROOM WITH STANDBY ASSIST. SHE APPEARS LESS ANXIOUS AND MORE CLEAR OF SPEECH. PT STATES THAT SHE FEELS LIKE SHE SLEPT WELL LAST NIGHT
[2022-07-12 06:19] LABS: Bun/Creatinine Ratio 4.8 (12.0-20.0); Calcium, Blood 8.5 mg/dL (8.5-10.1); Creatinine, Blood 0.83 mg/dL (0.40-1.00); Potassium, Blood 3.7 mmol/L (3.5-5.5)
--- NOTE | 2022-07-12 11:30 | NUR ---
TELE CALLED STATES PT HAD OCC RUNS TRIGEMINY. 9 SECONDS LONG 3X TODAY. IS NSR WITH PVC'S, 1-21 PER MINUTE. PT DENIES CHEST PAIN OR DISCOMFORT. ADMITS TO NECK AND SHOULDER PAIN. STATES IS CHRONIC. CALLED DR SALEH. SHE TO ADVISE IF ORDERS.
[2022-07-12 14:42] VITALS: BP 128/66
--- NOTE | 2022-07-12 19:43 | NUR ---
PT PLEASANT TODAY. A/O X3, SOME CONFUSION WHEN AWAKENED. PAIN IN NECK AND TRIGEMINAL AND PVC BEATS NOTED DURING SHIFT. DR ORDERED TROPS, NEGATIVE, EKG RUN AND GIVEN TO DR. NO OTHER NEW ORDERS. PT STATES PAIN IS CHRONIC. TRIED DIFFERENT PAIN PATCH AND HEAT PAD. PT SBA ASST TO BATHROOM. NO OTHER CONCERNS NOTED. BED IN LOW POSITIOIN, CALL LITE IN REACH, CALLS APPROP
[2022-07-13 02:33] VITALS: BP 132/74
[2022-07-13 06:10] LABS: Hemoglobin 8.7 g/dL (11.5-16.0); Mean Corpuscular HGB 31.1 pg (26.0-34.0); Mean Corpuscular Volume 104 fL (80-100); Mean Platelet Volume 11.1 fL (9.1-12.4); Platelet Count 272 K/mm3 (150-400); RDW Coefficient Variation 18.8 % (11.7-14.2); RDW Standard Deviation 71.1 fL (35.1-46.3); White Blood Cell Count 5.06 K/mm3 (4.00-11.30)
[2022-07-13 06:28] LABS: Bun/Creatinine Ratio 6.3 (12.0-20.0); Calcium, Blood 8.7 mg/dL (8.5-10.1); Creatinine, Blood 0.64 mg/dL (0.40-1.00); Potassium, Blood 3.8 mmol/L (3.5-5.5)
[2022-07-13 07:23] VITALS: BP 113/60
[2022-07-13 15:15] VITALS: BP 109/55
--- NOTE | 2022-07-13 19:40 | NUR ---
SHIFT SUMMARY PTN SLEEPS MUCH OF DAY, REPORTS TIRED. PAIN C/O L NECK AND SHOULDER, TREATED PER EMAR. TELEMETRY SHOWS SINUS RYTHYM, PAC, PVC, HR 89; TRIGIMINY, NOT NEW, REPORTED ONCE REPORTED MEAT HOSTESS. PTN ASYMPTOMATIC. PLAN FOR PTN TO D/C TO [facility] TOMORROW, WORKING ON TRANSPORT.
[2022-07-13 19:41] VITALS: BP 105/56
[2022-07-14 04:30] VITALS: BP 138/73
[2022-07-14 07:28] VITALS: BP 145/74
[2022-07-14 09:28] LABS: SARS-Cov-2 (COVID-19) PCR, MMC NEGATIVE (NEGATIVE)
[2022-07-14] MEDS ORDERED: MULVITA PO (10:41)
== END 2022-07-14 11:04 | DRG 896 ==
LOC: ER 08:57 → ICUW 12:32 → MEDS 12:32 → ICUW 14:35 → MEDS 07-09 10:52 → ENPENDDIS 07-14 09:41 → MEDS 07-14 11:04
PROVIDERS: Family Medicine; Student in an Organized Health Care Education/Training Program; ADMIT Hospitalist
PROC: 5A09357 Assistance with Respiratory Ventilation, Less than 24 Consecutive Hours, Continuous Positive Airway Pressure (ICD-10-PCS; principal; 2022-07-09)
DX: F10.231 Alcohol dependence with withdrawal delirium (principal); G92.8 Other toxic encephalopathy; G72.1 Alcoholic myopathy; Z68.41 Body mass index [BMI] 40.0-44.9, adult; E66.01 Morbid (severe) obesity due to excess calories; K70.10 Alcoholic hepatitis without ascites; R07.9 Chest pain, unspecified; I10 Essential (primary) hypertension; E83.51 Hypocalcemia; E87.6 Hypokalemia; E83.42 Hypomagnesemia; D69.6 Thrombocytopenia, unspecified; D64.9 Anemia, unspecified; R94.31 Abnormal electrocardiogram [ECG] [EKG]; E03.9 Hypothyroidism, unspecified; F41.9 Anxiety disorder, unspecified; F32.A Depression, unspecified; G47.30 Sleep apnea, unspecified; M19.90 Unspecified osteoarthritis, unspecified site; Y90.0 Blood alcohol level of less than 20 mg/100 ml; Z71.41 Alcohol abuse counseling and surveillance of alcoholic; Z91.040 Latex allergy status; Z88.8 Allergy status to other drugs, medicaments and biological substances; Z90.710 Acquired absence of both cervix and uterus; Z90.49 Acquired absence of other specified parts of digestive tract; Z87.19 Personal history of other diseases of the digestive system; Z79.899 Other long term (current) drug therapy; Z79.811 Long term (current) use of aromatase inhibitors; R74.8 Abnormal levels of other serum enzymes; Z20.822 Contact with and (suspected) exposure to COVID-19
CPT/HCPCS: 36415; 51702; 70450; 71045; 80048; 80053; 81003; 82140; 82330; 82533; 83605; 83690; 83735; 84100; 84484; 85014; 85018; 85025; 85027; 87493; 93005; 93010; 94640; 94660; 94664; 94760; 94762; 96361; 96365-59; 96366; 96367; 96368; 96372-59; 96375; 97110; 97116; 97162; 97166; 97530; 97535; 99285-25; A9270; C9113; G0480; J0612; J1650; J1885; J2060; J2250; J2560; J3411; J3475; J3480; J7030; J7050; U0004

== ENCOUNTER 2022-08-20 20:38 | Inpatient (IN) | payer MEDICARE, OTHER ==
[~2022-08-20] VITALS: Ht 152.4 cm; Wt 79.1 kg
[~2022-08-20 20:38] MED LIST changes: +1/2 NS 250ml250 ML; +AMLO5 PO; +GABA100 PO; +HYDPAM50 PO; -LOSA50 PO; +LOSARTAN POTAS100 M1 PO; +MULVITA PO
[2022-08-20 21:01] LABS: BASOPHILS ABSOLUTE AUTO 0.05 K/mm3 (0.00-0.23); BASOPHILS PERCENT AUTO 1 % (0-2); EOSINOPHILS ABSOLUTE AUTO 0.01 K/mm3 (0.00-0.68); EOSINOPHILS PERCENT AUTO 0 % (0-6); Hematocrit 28.3 % (33.0-51.0); Hemoglobin 9.1 g/dL (11.5-16.0); IMMATURE GRAN ABSOLUTE AUTO 0.01 K/mm3 (0.00-0.10); IMMATURE GRAN PERCENT AUTO 0 % (0-1); LYMPHOCYTES ABSOLUTE AUTO 1.95 K/mm3 (0.84-5.20); LYMPHOCYTES PERCENT AUTO 43 % (21-46); MONOCYTES ABSOLUTE AUTO 0.58 K/mm3 (0.16-1.47); MONOCYTES PERCENT AUTO 13 % (4-13); Mean Corpuscular HGB 28.5 pg (26.0-34.0); Mean Corpuscular HGB Conc 32.2 g/dL (31.5-36.5); Mean Corpuscular Volume 89 fL (80-100); Mean Platelet Volume 10.5 fL (9.1-12.4); NEUTROPHILS ABSOLUTE AUTO 1.97 K/mm3 (1.96-9.15); NEUTROPHILS PERCENT AUTO 43 % (41-73); Platelet Count 257 K/mm3 (150-400); RDW Coefficient Variation 15.3 % (11.7-14.2); RDW Standard Deviation 49.3 fL (35.1-46.3); Red Blood Cell Count 3.19 M/mm3 (3.80-5.20); White Blood Cell Count 4.57 K/mm3 (4.00-11.30)
[2022-08-20 21:32] LABS: Albumin, Blood 2.7 g/dL (3.4-5.0); Albumin/Globulin Ratio 0.8 (0.8-1.8); Bilirubin, Total 0.2 mg/dL (0.1-1.0); Bun/Creatinine Ratio 10.3 (12.0-20.0); Calcium, Blood 6.8 mg/dL (8.5-10.1); Creatinine, Blood 1.46 mg/dL (0.40-1.00); Globulin, Blood 3.2 g/dL (2.2-4.0); Potassium, Blood 2.6 mmol/L (3.5-5.5); Total Protein, Blood 5.9 g/dL (6.4-8.2)
[2022-08-20 21:51] LABS: Magnesium, Blood 1.3 mg/dL (1.6-2.4); Phosphorus, Blood 2.4 mg/dL (2.5-4.9)
[2022-08-20 23:39] LABS: Source, Urine Clean Catch
[2022-08-20 23:49] LABS: Appearance, Urine Clear (Clear); Bilirubin, Urine Neg (Neg); Blood, Urine 2+ (Neg); Color, Urine Yellow (P-Yellow); Glucose Qualitative, Urine Neg (Neg); Ketones, Urine Neg (Neg); Leukocyte Esterase, Urine Neg (Neg); Nitrite, Urine Neg (Neg); Protein, Urine 1+ (Neg); Urobilinogen, Urine NORM (Normal)
[2022-08-21 00:12] LABS: U Amphetamine Screen Not Detected; U Barbituate Screen Not Detected; U Benzodiazapine Screen DETECTED; U Buprenorphine Screen Not Detected; U Cannabinoids Screen Not Detected; U Cocaine Screen Not Detected; U Methadone Screen Not Detected; U Methamphetamine Screen Not Detected; U Opiates Screen Not Detected; U Oxycodone Screen Not Detected; U Phencyclidine Screen Not Detected; U Propoxyphene Screen Not Detected
--- NOTE | 2022-08-21 00:24 | NUR ---
REVIEWED INFORMATION FOR POSSIBLE MEDICAL FLOOR ADMIT, ADMISSION WAS CHANGED TO PCU STATUS.
--- NOTE | 2022-08-21 00:26 | NUR ---
REVIEWED PT CHART FOR ADMISSION HX PT REDIRECTED TO PCU
[2022-08-21 00:30] LABS: Red Blood Cells, Urine 0-2 /hpf (0-2); Squamous Epithelial Cells Few /hpf (Few); White Blood Cells, Urine 0-2 /hpf (0-5)
[2022-08-21 00:31] LABS: Amorphous Light (0-Heavy); Bacteria Mod /hpf
[2022-08-21] MEDS ORDERED: ZOLOFT10013 PO (01:09)
[2022-08-21] MEDS ORDERED: ALLOPURINOL100 M1 PO (01:10)
[2022-08-21] MEDS ORDERED: Fenofibrate134 MG PO (01:10)
[2022-08-21 02:51] VITALS: BP 122/56
--- NOTE | 2022-08-21 04:55 | NUR ---
SHIFT SUMMARY 67 YR F ADMITTED THIS SHIFT FOR ALCOHOLIC ENCEPHALOPATHY. FULL CODE. PT ARRIVED AT APPROX 0315 AND WAS OBVIOUSLY INTOXICATED. SHE WAS CONFUSED AND HAVING A HARD TIME STAYING AWAKE. IT WAS VERY DIFFICULT TO GET AN ASSESSMENT SO PARTS OF IT ARE INCOMPLETE. SHE IS CONTINENT AND WOKE UP WHEN SHE NEEDED TO USE THE RESTROOM. SHE AMBULATES W/ 2 PERSON ASSIST. SHE C/O OF BACK PAIN STATING THAT SHE HAS A BROKEN BACK BUT SHE WAS INCOHERENT WHEN TRYING TO EXPLAIN HOW SHE BROKE IT. SHE IS CURRENTLY RECEIVING IV POTASSIUM AND NORMAL SALINE. SHE IS SOUND ASLEEP AND SNORING LOUDLY.
[2022-08-21 06:01] LABS: BASOPHILS ABSOLUTE AUTO 0.04 K/mm3 (0.00-0.23); BASOPHILS PERCENT AUTO 1 % (0-2); EOSINOPHILS ABSOLUTE AUTO 0.01 K/mm3 (0.00-0.68); EOSINOPHILS PERCENT AUTO 0 % (0-6); Hematocrit 28.9 % (33.0-51.0); Hemoglobin 9.2 g/dL (11.5-16.0); IMMATURE GRAN ABSOLUTE AUTO 0.01 K/mm3 (0.00-0.10); IMMATURE GRAN PERCENT AUTO 0 % (0-1); LYMPHOCYTES ABSOLUTE AUTO 1.15 K/mm3 (0.84-5.20); LYMPHOCYTES PERCENT AUTO 27 % (21-46); MONOCYTES PERCENT AUTO 14 % (4-13); Mean Corpuscular HGB 28.4 pg (26.0-34.0); Mean Corpuscular HGB Conc 31.8 g/dL (31.5-36.5); Mean Corpuscular Volume 89 fL (80-100); Mean Platelet Volume 10.5 fL (9.1-12.4); NEUTROPHILS ABSOLUTE AUTO 2.49 K/mm3 (1.96-9.15); NEUTROPHILS PERCENT AUTO 58 % (41-73); Platelet Count 241 K/mm3 (150-400); RDW Coefficient Variation 15.1 % (11.7-14.2); Red Blood Cell Count 3.24 M/mm3 (3.80-5.20)
[2022-08-21 06:23] LABS: Albumin, Blood 2.7 g/dL (3.4-5.0); Albumin/Globulin Ratio 0.8 (0.8-1.8); Bilirubin, Total 0.3 mg/dL (0.1-1.0); Bun/Creatinine Ratio 17.1 (12.0-20.0); Calcium, Blood 6.4 mg/dL (8.5-10.1); Creatinine, Blood 0.76 mg/dL (0.40-1.00); Globulin, Blood 3.2 g/dL (2.2-4.0); Potassium, Blood 3.7 mmol/L (3.5-5.5); Total Protein, Blood 5.9 g/dL (6.4-8.2)
[2022-08-21 07:16] VITALS: BP 147/75
[2022-08-21 14:45] VITALS: BP 160/89
--- NOTE | 2022-08-21 17:44 | NUR ---
SHIFT SUMMARY NPO TODAY FOR BOWEL REST. NS RUNNING @100ML/HR. PT HAVING FREQUENT LOOSE GREENISH/BROWN STOOLS T/O THE SHIFT. GEN SURGERY CONSULTED. NO SURGERY AT THIS TIME. MEDICATED WITH ATIVAN NEEDED PER CIWAS. LAST CIWA WAS AN 8. PT IN VISITING. PT EDUCATED MULTIPLE TIMES TODAY ON THE IMPORTANCE OF SUSTAINING FROM ALCOHOL OR HER HEALTH WILL CONTINUE TO DETERIORATE. PT STATES SHE UNDERSTANDS. NAUSEA MANAGED WITH MEDICATION. NO OTHER ACUTE CHANGES IN ASSESSMENT AT THIS TIME. VS REVIEWED. CALL LIGHT IN REACH.
[2022-08-21 20:03] VITALS: BP 163/92
[2022-08-22 04:43] VITALS: BP 165/83
--- NOTE | 2022-08-22 06:09 | NUR ---
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 CIWA SCORE APPROX 8-9, ATIVAN GIVEN. TORADOL GIVEN X2 FOR CHRONIC PAIN. AOX3, PLEASANT, SBA TO TOILET, VSS, NO SIGNIFICANT CHANGES DURING SHIFT.
[2022-08-22 07:19] VITALS: BP 144/70
--- NOTE | 2022-08-22 10:12 | NUR ---
PT IS ALERT AND ORIENTED X4. CIWA 10. AMBULATED TO BATHROOM SBA. ABLE TO EXRESS NEED
[2022-08-22 15:04] VITALS: BP 142/73
--- NOTE | 2022-08-22 16:35 | NUR ---
SHIFT SUMMARY PT IS ALERT AND ORIENTED X4. CIWA SCORES VARIED FROM 8-10 THROUGHOUT SHIFT. TREATED PER EMAR. PT HAS BEEN CALM AND COOPERATIVE. AMBULATED TO BATHROOM MANY TIMES USING FWW STANDBY ASSIST. PT REPORTS PAIN IN ABDOMEN AND BACK. TREATED PER EMAR. DIET CHANGED TO FULL LIQUIDS. IF PT TOLORATES, DR GARCES REQUEST TO BE CALLED. R/A. PT REPORTS FEELING DEPRESSED DUE TO CURRENT SITUATION. PT STATES THAT SHE IS WORRIED TO GO HOME WITHOUT HER HOME TO HELP. NO ACUTE CHANGES THIS SHIFT.
[2022-08-22 19:47] VITALS: BP 152/76
[2022-08-23 02:48] VITALS: BP 150/66
[2022-08-23 05:41] LABS: Bun/Creatinine Ratio 7.1 (12.0-20.0); Calcium, Blood 7.4 mg/dL (8.5-10.1); Creatinine, Blood 0.57 mg/dL (0.40-1.00); Potassium, Blood 3.1 mmol/L (3.5-5.5)
--- NOTE | 2022-08-23 06:25 | NUR ---
Shift Summary CIWA score of 8 through the first half of the shift, given PRN librium as ordered. Pt c/o back pain and given PRN Toridol and a heating pad. This AM she had a critical magnesium lab at 1.0, hospitalist notified who ordered 2gm magnesium IV which is running now. No change in pt condition.
[2022-08-23 07:20] VITALS: BP 158/85
[2022-08-23 16:33] VITALS: BP 149/89
--- NOTE | 2022-08-23 18:14 | NUR ---
PT PLEASANT TODAY. CWA STABLE ABOUT 8. SHE DID C/O LOW ABD PN AND I TREATED WITH TORADOL PER EMAR. STATES DID HELP. HAS BEEN UP SBA TODAY. ALSO DISCUSSED ALCOHOL AND THAT SHE DOES NOT SEEM TO BE HANDLING WELL. PT STATES SHE MIGHT NEED TO JUST STOP. STATES IF HAS ONE DRINK, SHE CONTINUES. NO OTHER CONCERNS NOTED. BED IN LOW POSITION, CALL LITE IN REACH, CALLS APPROP
[2022-08-23 20:34] VITALS: BP 138/69
[2022-08-24 03:57] VITALS: BP 154/78
--- NOTE | 2022-08-24 05:37 | NUR ---
Shift Summary Pt c/o discomfort and pain in her hips r/t being in the hospital bed. Placed eggcrate mattress on her bed and discomfort is greatly improved. Rcvd IV Toridol for hip and belly pain. ETOH withdrawal symptoms grealty improved, no PRNs needed this shift. Slept well t/o the night excpet for frequent trips to the bathroom.
[2022-08-24 05:47] LABS: Bun/Creatinine Ratio 7.2 (12.0-20.0); Creatinine, Blood 0.56 mg/dL (0.40-1.00); Magnesium, Blood 1.4 mg/dL (1.6-2.4); Potassium, Blood 3.5 mmol/L (3.5-5.5)
[2022-08-24 07:18] VITALS: BP 150/75
[2022-08-24 15:22] VITALS: BP 173/80
--- NOTE | 2022-08-24 18:12 | NUR ---
SUMMARY- NO ACUTE EVENTS THIS SHIFT. ONE PRN CIWA WAS PERFORMED THIS SHIFT. PT WAS VERY ANXIOUS AND SCORED A 13. 2MG IV ATIVAN GIVEN. PT IS CUEING ASSIST ONLY. PT TOOK ONE WALK TODAY IN THE [place] THIS SHIFT.
[2022-08-24 19:30] VITALS: BP 139/72
--- NOTE | 2022-08-25 03:23 | NUR ---
STRATEGY CONSULTANT SUMMARY VSS. ALERT AND ORIENTED. CIWA NUMBER WAS LOW AT HS. DISCUSSED UNDERLYING REASON PT WAS DRINKING SO MUCH ETOH, THAT SHE WAS IMPORTANT AND THAT THE ETOH WAS CAUSING HER PHYSICAL DISTRESS. PT VOICED UNDERSTANDING AND STATED SHE WAS LONELY. SHE VOICED SHE WAS TALKING TO OTHERS AND THAT SHE WAS CONTEMPLATING PICKING UP A HOBBY THAT INCLUDED HELPING OTHERS, TO INCLUDE INTERACTIONS WITH OTHERS. HAS BEE RESTING QUIETLY WITH FEW INTERRUPTIONS. UP AD MILADY. CONTINENT. CALL LIGHT IN REACH. WILL CONTINUE TO MONITOR
[2022-08-25 05:24] VITALS: BP 135/69
[2022-08-25 06:21] LABS: Bun/Creatinine Ratio 11.3 (12.0-20.0); Calcium, Blood 8.6 mg/dL (8.5-10.1); Creatinine, Blood 0.62 mg/dL (0.40-1.00); Magnesium, Blood 1.6 mg/dL (1.6-2.4); Potassium, Blood 3.9 mmol/L (3.5-5.5)
[2022-08-25 07:13] VITALS: BP 158/84
[2022-08-25 15:06] VITALS: BP 133/76
--- NOTE | 2022-08-25 18:22 | NUR ---
SUMMARY- NO ACUTE EVENTS THIS SHIFT. PT DID NOT REQUIRE ANY MEDICATION FOR PRN CIWA TODAY. PT IS AAOX4 AND SBA.
[2022-08-25 19:28] VITALS: BP 143/80
--- NOTE | 2022-08-25 21:37 | NUR ---
REQUESTED "ATIVAN" AT HS DUE TO ANXIETY. PROCESS ENVIRONMENTAL TECHNICIAN ORDERED. ALERT AND ORIENTED. CALL LIGHT IN REACH
--- NOTE | 2022-08-26 03:27 | NUR ---
COTTRELL OPERATOR SUMMARY VSS. DISCUSSED OPTIONS POST DISCHARGE. RELAYED ANXIOUSNESS RE DISCHARGE. ATIVAN ADMIN X 2 THIS SHIFT FOR ANXIETY. ENCOURAGEMENT GIVEN. HAS SIVAKUMAR RESTING QUIETLY FOR MUCH OF THE SHIFT SINCE. UP AD MILADY WITH WALKER. CALL LIGHT IN REACH. WILL CONTINUE TO MONITOR
[2022-08-26 05:27] VITALS: BP 145/71
[2022-08-26 05:58] LABS: Bun/Creatinine Ratio 10.7 (12.0-20.0); Calcium, Blood 8.6 mg/dL (8.5-10.1); Creatinine, Blood 0.66 mg/dL (0.40-1.00); Magnesium, Blood 1.7 mg/dL (1.6-2.4); Potassium, Blood 4.1 mmol/L (3.5-5.5)
[2022-08-26 07:23] VITALS: BP 125/61
[2022-08-26] MEDS ORDERED: CHLO25 PO (13:46)
[2022-08-26] MEDS ORDERED: B-1100 M1 PO (13:46)
[2022-08-26] MEDS ORDERED: FOLI1 PO (13:46)
--- NOTE | 2022-08-26 16:17 | NUR ---
DC- PT DC IN STABLE CONDITION WITH AND LEFT WITH ALL BELONGINGS.
== END 2022-08-26 15:05 | disposition home health service (06) | DRG 897 ==
LOC: ER 20:38 → ERHOLD 20:39 → MEDS 20:39
PROVIDERS: Family Medicine; Internal Medicine; Student in an Organized Health Care Education/Training Program; ADMIT Internal Medicine
DX: F10.239 Alcohol dependence with withdrawal, unspecified (principal); N17.9 Acute kidney failure, unspecified; Z68.42 Body mass index [BMI] 45.0-49.9, adult; K56.0 Paralytic ileus; G31.2 Degeneration of nervous system due to alcohol; I95.9 Hypotension, unspecified; E83.42 Hypomagnesemia; I10 Essential (primary) hypertension; E66.01 Morbid (severe) obesity due to excess calories; E83.39 Other disorders of phosphorus metabolism; E87.6 Hypokalemia; D64.9 Anemia, unspecified; F41.9 Anxiety disorder, unspecified; F32.A Depression, unspecified; E03.9 Hypothyroidism, unspecified; K43.9 Ventral hernia without obstruction or gangrene; K76.0 Fatty (change of) liver, not elsewhere classified; F10.229 Alcohol dependence with intoxication, unspecified; M19.90 Unspecified osteoarthritis, unspecified site; R25.3 Fasciculation; Z88.8 Allergy status to other drugs, medicaments and biological substances; Z91.040 Latex allergy status; Z79.890 Hormone replacement therapy; Z79.899 Other long term (current) drug therapy; Z87.19 Personal history of other diseases of the digestive system; Z90.710 Acquired absence of both cervix and uterus; Z87.891 Personal history of nicotine dependence; Z90.49 Acquired absence of other specified parts of digestive tract; Z71.41 Alcohol abuse counseling and surveillance of alcoholic; Z87.81 Personal history of (healed) traumatic fracture; Z91.81 History of falling
CPT/HCPCS: 36415; 74177; 80048; 80053; 81001; 83690; 83735; 84100; 84443; 85025; 93005; 93010; 96361; 96365; 96366; 96367; 96368; 96372; 96375; 96376; 99285-25; A9270; G0378; G0480; J0612; J1650; J1885; J2060; J2405; J3411; J3475; J3480; J7030; J7050; J7060; Q9967

== ENCOUNTER 2022-10-19 05:41 | Emergency (ER) | payer MEDICARE, OTHER ==
[~2022-10-19] VITALS: Ht 154.9 cm; Wt 90.7 kg
[~2022-10-19 05:41] MED LIST changes: +ALLOPURINOL100 M1 PO; +B-1100 M1 PO; +FOLI1 PO; +Fenofibrate134 MG PO; +ZOLOFT10013 PO
[2022-10-19 05:48] VITALS: BP 144/67
[2022-10-19] MEDS ORDERED: Robaxin750 MG PO (07:09)
== END 2022-10-19 07:23 | disposition home or self-care (01) ==
LOC: ER 05:41
DX: M62.830 Muscle spasm of back (principal); G89.29 Other chronic pain; I10 Essential (primary) hypertension; E03.9 Hypothyroidism, unspecified; Z91.040 Latex allergy status; Z88.8 Allergy status to other drugs, medicaments and biological substances; Z79.899 Other long term (current) drug therapy; Z87.891 Personal history of nicotine dependence
CPT/HCPCS: 96372; 99283-25; A9270; J1885

== ENCOUNTER 2022-10-21 04:41 | Emergency (ER) | payer MEDICARE, OTHER ==
[~2022-10-21] VITALS: Ht 154.9 cm; Wt 90.7 kg
[~2022-10-21 04:41] MED LIST changes: +Robaxin750 MG PO
[2022-10-21 04:47] VITALS: BP 163/72
[2022-10-21 05:00] LABS: BASOPHILS ABSOLUTE AUTO 0.05 K/mm3 (0.00-0.23); BASOPHILS PERCENT AUTO 1 % (0-2); EOSINOPHILS ABSOLUTE AUTO 0.17 K/mm3 (0.00-0.68); EOSINOPHILS PERCENT AUTO 3 % (0-6); Hematocrit 31.1 % (33.0-51.0); Hemoglobin 9.7 g/dL (11.5-16.0); IMMATURE GRAN ABSOLUTE AUTO 0.03 K/mm3 (0.00-0.10); IMMATURE GRAN PERCENT AUTO 1 % (0-1); LYMPHOCYTES ABSOLUTE AUTO 1.43 K/mm3 (0.84-5.20); LYMPHOCYTES PERCENT AUTO 22 % (21-46); MONOCYTES ABSOLUTE AUTO 0.59 K/mm3 (0.16-1.47); MONOCYTES PERCENT AUTO 9 % (4-13); Mean Corpuscular HGB 25.1 pg (26.0-34.0); Mean Corpuscular HGB Conc 31.2 g/dL (31.5-36.5); Mean Corpuscular Volume 80 fL (80-100); Mean Platelet Volume 10.8 fL (9.1-12.4); NEUTROPHILS ABSOLUTE AUTO 4.24 K/mm3 (1.96-9.15); NEUTROPHILS PERCENT AUTO 65 % (41-73); Platelet Count 266 K/mm3 (150-400); RDW Coefficient Variation 17.7 % (11.7-14.2); RDW Standard Deviation 50.9 fL (35.1-46.3); Red Blood Cell Count 3.87 M/mm3 (3.80-5.20); White Blood Cell Count 6.51 K/mm3 (4.00-11.30)
[2022-10-21 05:19] LABS: Albumin/Globulin Ratio 0.7 (0.8-1.8); Bilirubin, Total 0.2 mg/dL (0.1-1.0); Bun/Creatinine Ratio 9.6 (12.0-20.0); Calcium, Blood 8.3 mg/dL (8.5-10.1); Creatinine, Blood 0.73 mg/dL (0.40-1.00); Globulin, Blood 4.2 g/dL (2.2-4.0); Potassium, Blood 3.7 mmol/L (3.5-5.5); Total Protein, Blood 7.2 g/dL (6.4-8.2)
[2022-10-21 05:32] LABS: International Normalized Ratio 1.14; Prothrombin Time Results 11.9 Sec (9.7-11.5)
[2022-10-21] MEDS ORDERED: ONDA4ODT MM (06:39)
[2022-10-21] MEDS ORDERED: METO10 PO (06:39)
== END 2022-10-21 07:11 | disposition home or self-care (01) ==
LOC: ER 04:41
PROVIDERS: Emergency Medicine
DX: K76.9 Liver disease, unspecified (principal); M54.50 Low back pain, unspecified; G89.29 Other chronic pain; I10 Essential (primary) hypertension; E03.9 Hypothyroidism, unspecified; M19.90 Unspecified osteoarthritis, unspecified site; Z91.040 Latex allergy status; Z88.8 Allergy status to other drugs, medicaments and biological substances; Z79.899 Other long term (current) drug therapy; Z87.891 Personal history of nicotine dependence
CPT/HCPCS: 74177; 80053; 83690; 85025; 85610; 99285-25; A9270; G0480; Q9967

== ENCOUNTER 2022-11-11 01:44 | Emergency (ER) | payer MEDICARE, OTHER ==
[~2022-11-11] VITALS: Ht 152.4 cm; Wt 86.2 kg
[~2022-11-11 01:44] MED LIST changes: +METO10 PO
[2022-11-11 04:50] LABS: BASOPHILS ABSOLUTE AUTO 0.05 K/mm3 (0.00-0.23); BASOPHILS PERCENT AUTO 1 % (0-2); EOSINOPHILS ABSOLUTE AUTO 0.15 K/mm3 (0.00-0.68); EOSINOPHILS PERCENT AUTO 2 % (0-6); Hematocrit 30.4 % (33.0-51.0); Hemoglobin 10.1 g/dL (11.5-16.0); IMMATURE GRAN ABSOLUTE AUTO 0.02 K/mm3 (0.00-0.10); IMMATURE GRAN PERCENT AUTO 0 % (0-1); LYMPHOCYTES PERCENT AUTO 8 % (21-46); MONOCYTES ABSOLUTE AUTO 0.44 K/mm3 (0.16-1.47); MONOCYTES PERCENT AUTO 5 % (4-13); Mean Corpuscular HGB 25.8 pg (26.0-34.0); Mean Corpuscular HGB Conc 33.2 g/dL (31.5-36.5); Mean Corpuscular Volume 78 fL (80-100); Mean Platelet Volume 11.3 fL (9.1-12.4); NEUTROPHILS ABSOLUTE AUTO 7.19 K/mm3 (1.96-9.15); NEUTROPHILS PERCENT AUTO 84 % (41-73); Platelet Count 194 K/mm3 (150-400); RDW Coefficient Variation 17.9 % (11.7-14.2); RDW Standard Deviation 46.4 fL (35.1-46.3); Red Blood Cell Count 3.92 M/mm3 (3.80-5.20); White Blood Cell Count 8.55 K/mm3 (4.00-11.30)
[2022-11-11 05:24] LABS: Albumin, Blood 3.1 g/dL (3.4-5.0); Albumin/Globulin Ratio 0.9 (0.8-1.8); Bilirubin, Total 0.8 mg/dL (0.1-1.0); Bun/Creatinine Ratio 23.5 (12.0-20.0); Calcium, Blood 6.5 mg/dL (8.5-10.1); Creatinine, Blood 1.15 mg/dL (0.40-1.00); Globulin, Blood 3.5 g/dL (2.2-4.0); Potassium, Blood 2.9 mmol/L (3.5-5.5); Total Protein, Blood 6.6 g/dL (6.4-8.2)
[2022-11-11] MEDS ORDERED: CHLO25 PO ×2 (07:10→08:07)
[2022-11-11] MEDS ORDERED: ONDA4ODT MM ×2 (07:10→08:08)
[2022-11-11 07:12] VITALS: BP 146/90
== END 2022-11-11 08:23 | disposition home or self-care (01) ==
LOC: ER 01:44
PROVIDERS: Student in an Organized Health Care Education/Training Program
DX: E87.6 Hypokalemia (principal); F10.239 Alcohol dependence with withdrawal, unspecified; E83.42 Hypomagnesemia; I10 Essential (primary) hypertension; E03.9 Hypothyroidism, unspecified; Z88.8 Allergy status to other drugs, medicaments and biological substances; Z91.040 Latex allergy status; Z79.899 Other long term (current) drug therapy; Z87.891 Personal history of nicotine dependence
CPT/HCPCS: 80053; 83690; 83735; 85025; 93005; 93010; 96365; 96366; 96367; 96375; 99285-25; A9270; J0612; J1885; J2405; J3475; J7030

== ENCOUNTER 2022-11-13 00:27 | Emergency (ER) | payer MEDICARE, OTHER ==
[~2022-11-13] VITALS: Ht 154.9 cm; Wt 86.2 kg
[2022-11-13 06:04] LABS: BASOPHILS ABSOLUTE AUTO 0.04 K/mm3 (0.00-0.23); BASOPHILS PERCENT AUTO 1 % (0-2); EOSINOPHILS ABSOLUTE AUTO 0.16 K/mm3 (0.00-0.68); EOSINOPHILS PERCENT AUTO 2 % (0-6); Hematocrit 28.2 % (33.0-51.0); Hemoglobin 8.8 g/dL (11.5-16.0); IMMATURE GRAN ABSOLUTE AUTO 0.02 K/mm3 (0.00-0.10); IMMATURE GRAN PERCENT AUTO 0 % (0-1); LYMPHOCYTES ABSOLUTE AUTO 1.06 K/mm3 (0.84-5.20); LYMPHOCYTES PERCENT AUTO 13 % (21-46); MONOCYTES ABSOLUTE AUTO 0.69 K/mm3 (0.16-1.47); MONOCYTES PERCENT AUTO 8 % (4-13); Mean Corpuscular HGB 25.7 pg (26.0-34.0); Mean Corpuscular HGB Conc 31.2 g/dL (31.5-36.5); Mean Corpuscular Volume 82 fL (80-100); Mean Platelet Volume 11.2 fL (9.1-12.4); NEUTROPHILS ABSOLUTE AUTO 6.49 K/mm3 (1.96-9.15); NEUTROPHILS PERCENT AUTO 77 % (41-73); Platelet Count 169 K/mm3 (150-400); RDW Coefficient Variation 19.3 % (11.7-14.2); RDW Standard Deviation 50.3 fL (35.1-46.3); Red Blood Cell Count 3.43 M/mm3 (3.80-5.20); White Blood Cell Count 8.46 K/mm3 (4.00-11.30)
[2022-11-13 06:24] LABS: Albumin, Blood 2.9 g/dL (3.4-5.0); Albumin/Globulin Ratio 0.9 (0.8-1.8); Bilirubin, Total 0.7 mg/dL (0.1-1.0); Bun/Creatinine Ratio 16.8 (12.0-20.0); Calcium, Blood 7.1 mg/dL (8.5-10.1); Creatinine, Blood 1.37 mg/dL (0.40-1.00); Globulin, Blood 3.3 g/dL (2.2-4.0); Potassium, Blood 3.5 mmol/L (3.5-5.5); Total Protein, Blood 6.2 g/dL (6.4-8.2)
[2022-11-13 07:17] VITALS: BP 145/62
== END 2022-11-13 07:18 | disposition home or self-care (01) ==
LOC: ER 00:27
PROVIDERS: Student in an Organized Health Care Education/Training Program
DX: R10.9 Unspecified abdominal pain (principal); R11.0 Nausea; E86.0 Dehydration; Z91.040 Latex allergy status; Z88.8 Allergy status to other drugs, medicaments and biological substances; Z79.899 Other long term (current) drug therapy; Z87.891 Personal history of nicotine dependence; I10 Essential (primary) hypertension; E03.9 Hypothyroidism, unspecified; M19.90 Unspecified osteoarthritis, unspecified site; F10.20 Alcohol dependence, uncomplicated
CPT/HCPCS: 80053; 83690; 85025; 96374; 96375; 99284-25; J1885; J2405; J7030

== ENCOUNTER 2022-11-15 08:40 | Inpatient (IN) | payer MEDICARE, OTHER ==
[2022-11-15] VITALS (7 sets, daily range): BP systolic 93–118; BP diastolic 40–74
[~2022-11-15] VITALS: Ht 154.9 cm; Wt 100.0 kg
[2022-11-15 10:18] LABS: BASOPHILS ABSOLUTE AUTO 0.04 K/mm3 (0.00-0.23); BASOPHILS PERCENT AUTO 1 % (0-2); EOSINOPHILS ABSOLUTE AUTO 0.28 K/mm3 (0.00-0.68); EOSINOPHILS PERCENT AUTO 4 % (0-6); Hematocrit 27.9 % (33.0-51.0); Hemoglobin 8.4 g/dL (11.5-16.0); IMMATURE GRAN ABSOLUTE AUTO 0.08 K/mm3 (0.00-0.10); IMMATURE GRAN PERCENT AUTO 1 % (0-1); LYMPHOCYTES ABSOLUTE AUTO 1.33 K/mm3 (0.84-5.20); LYMPHOCYTES PERCENT AUTO 20 % (21-46); MONOCYTES ABSOLUTE AUTO 0.73 K/mm3 (0.16-1.47); MONOCYTES PERCENT AUTO 11 % (4-13); Mean Corpuscular HGB 26.4 pg (26.0-34.0); Mean Corpuscular HGB Conc 30.1 g/dL (31.5-36.5); Mean Platelet Volume 10.5 fL (9.1-12.4); NEUTROPHILS ABSOLUTE AUTO 4.25 K/mm3 (1.96-9.15); NEUTROPHILS PERCENT AUTO 63 % (41-73); NRBC ABSOLUTE 0.04 K/mm3 (0.00-0.02); NRBC Auto 0.6 /100 WBC (0.0-0.2); Platelet Count 157 K/mm3 (150-400); RDW Coefficient Variation 21.2 % (11.7-14.2); RDW Standard Deviation 55.8 fL (35.1-46.3); Red Blood Cell Count 3.18 M/mm3 (3.80-5.20); White Blood Cell Count 6.71 K/mm3 (4.00-11.30)
[2022-11-15 10:19] LABS: Mean Corpuscular Volume 88 fL (80-100)
[2022-11-15 10:36] LABS: International Normalized Ratio 1.23; Prothrombin Time Results 12.8 Sec (9.7-11.5)
[2022-11-15 11:51] LABS: Thyroid Stimulating Hormone 1.86 uIU/mL (0.360-4.800)
[2022-11-15 12:00] LABS: Albumin, Blood 2.8 g/dL (3.4-5.0); Albumin/Globulin Ratio 0.8 (0.8-1.8); Bilirubin, Total 0.5 mg/dL (0.1-1.0); Bun/Creatinine Ratio 10.4 (12.0-20.0); Calcium, Blood 8.1 mg/dL (8.5-10.1); Creatinine, Blood 2.3 mg/dL (0.40-1.00); Globulin, Blood 3.4 g/dL (2.2-4.0); Potassium, Blood 3.5 mmol/L (3.5-5.5); Total Protein, Blood 6.2 g/dL (6.4-8.2)
[2022-11-15 13:39] LABS: Percent Saturation 15.9 % (15.0-50.0)
[2022-11-15] MEDS ORDERED: ACET500 PO (14:37)
[2022-11-15] MEDS ORDERED: ALBU8HFA2 INH (14:39)
[2022-11-15] MEDS ORDERED: ALLO100 PO (14:39)
[2022-11-15] MEDS ORDERED: AMLO5 PO (14:45)
[2022-11-15] MEDS ORDERED: ZYRTEC10 M2 PO (14:46)
[2022-11-15] MEDS ORDERED: Buspirone HCl15 MG PO (14:46)
[2022-11-15] MEDS ORDERED: CHLO25 (14:47)
[2022-11-15] MEDS ORDERED: CHLO10 PO (14:47)
[2022-11-15] MEDS ORDERED: CHLO25 PO ×2 (14:47→14:54)
[2022-11-15] MEDS ORDERED: CATAPRES0.1 MG (14:59)
[2022-11-15] MEDS ORDERED: FENO160 PO (15:00)
[2022-11-15] MEDS ORDERED: FOLIC ACID0.4 MG PO (15:01)
[2022-11-15] MEDS ORDERED: GABA300 PO ×3 (15:12→17:01)
[2022-11-15] MEDS ORDERED: Vistaril50 MG PO (15:37)
[2022-11-15] MEDS ORDERED: LEVSOD100 PO (17:03)
[2022-11-15] MEDS ORDERED: LOPE2C PO (17:03)
[2022-11-15] MEDS ORDERED: LOSA50 PO (17:04)
[2022-11-15] MEDS ORDERED: MELATONIN5 M1 PO (17:04)
[2022-11-15] MEDS ORDERED: Robaxin750 MG PO (17:05)
[2022-11-15] MEDS ORDERED: Hair, Skin & N1 EACH PO (17:06)
[2022-11-15] MEDS ORDERED: METO25 PO (17:06)
[2022-11-15] MEDS ORDERED: VITAMIN D5000 UNIT PO (17:07)
[2022-11-15] MEDS ORDERED: ONDA4 PO (17:07)
[2022-11-15] MEDS ORDERED: PROM25 PO (17:08)
[2022-11-15] MEDS ORDERED: SERT100 PO (17:08)
[2022-11-15] MEDS ORDERED: B-1100 M1 PO (17:09)
[2022-11-15] MEDS ORDERED: SPIR25 PO (17:09)
[2022-11-15] MEDS ORDERED: NAPR220 PO (17:10)
[2022-11-15] MEDS ORDERED: TRAZ50 PO (17:10)
[2022-11-15 17:23] LABS: Hematocrit 27.8 % (33.0-51.0); Hemoglobin 8.2 g/dL (11.5-16.0)
--- NOTE | 2022-11-15 18:06 | NUR ---
ADMIT SUMMARY PATIENT NEW ADMIT TO UNIT FROM ER. TOXIC METABOLIC ENCEPHALOPATHY. ARRIVED TO UNIT AT 1600 ON GURNEY. SLIDE TRANSFERRED TO BED. LETHARGIC BUT ABLE TO RESPOND TO QUESTIONS AND FOLLOW DIRECTIONS. OBESE WITH GENERALIZED WEAKNESS. ORIENTED X3, UNSURE OF DATE. EXTREMELY GARBLED AND SLURRED SPEECH. NO UNILATERAL NEURO DEFICITS. HEAD CT SHOWED NO ACUTE PROCESS. TELE SR 89, SBP IS SOFT 90'S TO 100'S. RESP IS SHALLOW AND LABORED, MAINTAINTS SATS ABOVE 95% ON 2L. NOTED APNEIC EPISODES WHILE SLEEPING WITH NO DESATURATION. BIPAP/CPAP PROTOCOL ORDERED. EXP WHEEZE NOTED. SOB WITH SPEAKING, BROKEN SENTENCES. FAILED BEDSIDE SWALLOW EVAL, HOB UPRIGHT, SIPS OF WATER PRODUCED SPLUTTERING AND WET GURGLY VOICE. NPO UNTIL EVAL BY SPEECH THERAPY IN AM. 2 PERSON MOD ASSIST WITH FWW AND GB TO BSC.
[2022-11-15 23:00] LABS: Hematocrit 27.3 % (33.0-51.0)
[2022-11-16] VITALS (16 sets, daily range): BP systolic 89–136; BP diastolic 49–109
[2022-11-16 04:54] LABS: Hematocrit 26.6 % (33.0-51.0); Hemoglobin 7.7 g/dL (11.5-16.0); Mean Corpuscular HGB 26.3 pg (26.0-34.0); Mean Corpuscular HGB Conc 28.9 g/dL (31.5-36.5); Mean Corpuscular Volume 91 fL (80-100); Mean Platelet Volume 10.3 fL (9.1-12.4); NRBC ABSOLUTE 0.08 K/mm3 (0.00-0.02); Platelet Count 162 K/mm3 (150-400); RDW Standard Deviation 59.4 fL (35.1-46.3); Red Blood Cell Count 2.93 M/mm3 (3.80-5.20); White Blood Cell Count 7.75 K/mm3 (4.00-11.30)
[2022-11-16 05:54] LABS: Albumin, Blood 2.6 g/dL (3.4-5.0); Albumin/Globulin Ratio 0.8 (0.8-1.8); Bilirubin, Total 0.4 mg/dL (0.1-1.0); Bun/Creatinine Ratio 10.1 (12.0-20.0); Calcium, Blood 7.9 mg/dL (8.5-10.1); Creatinine, Blood 2.78 mg/dL (0.40-1.00); Globulin, Blood 3.3 g/dL (2.2-4.0); Magnesium, Blood 2.1 mg/dL (1.6-2.4); Phosphorus, Blood 5.4 mg/dL (2.5-4.9); Potassium, Blood 3.7 mmol/L (3.5-5.5); Total Protein, Blood 5.9 g/dL (6.4-8.2)
--- NOTE | 2022-11-16 06:23 | NUR ---
SHIFT SUMMARY PT A&O TO SELF, DOES NOT USE CALL LIGHT, SPEECH IS GARBLED AND VERY HARD TO UNDERSTAND. CIWAs =/<9. BP STABLE, SINUS 70's, DENIES CP/PRESSURE. SpO2> 92% 2L VIA NC WHILE AWAKE. APNEIC EPISODES WHILE ASLEEP, RT PUT PT ON CPAP. PT TOLERATING CPAP WELL. INCONTINENT OF URINE, PUREWICK IN PLACE, <100mLs OF OUTPUT THROUGHOUT SHIFT, BLADDER SCAN SHOWS <250mLs OF URINE IN BLADDER. PT NPO. NO OTHER EVENTS, WILL REPORT TO ONCOMING RN.
--- NOTE | 2022-11-16 11:53 | NUR ---
AM NOTES: PT ON CPAP AT SHIFT CHANGE, PT UNABLE TO STAY AWAKE THIS MORNING FOR SPEECH THERAPIST TO WORK WITH HER, THEN ALL OF A SUDDEN PT STARTED YELLING OUT FOR WATER ADN RIPPED OFF CPAP MASK. PT ALERT AND ORIENTED X2-3, FORGETFUL. CIWA AT 4. PT WAS STILL MUMBLING UNABLE TO UNDERSTAND SOME WORDS ESPECIALLY WHEN PT TALKS FAST, EVENTUALLY PT'S SPEECH HAS GOTTEN CLEARER AFTER SPEECH THERAPIST WAS ABLE TO WORK WITH HER, PT STARTED ON A DIET, PUREE AND NECTAR THICK FLUIDS. TOLERATING AT THIS TIME. VITALS HRR SR/ST 90-100'S, SBP 120'S, SATS ABOVE 95% ON RA AND CPAP WHEN ASLEEP. AFEBRILE. PT WITH SLEEP APNEA DESATS TO 70% COMES BACK UP WHEN CPAP IS PLACED. PT STARTED ON NS AT 100MLS/HR. PT/OT ORDERED WELL TO EVAL AND TREAT. MAREK CALLED AND WAS GIVEN UPDATE REGARDING PT'S STATUS. RENAL TANISHA WAS DONE THIS AM AWAITING FOR RESULT. NO ACUTE CHANGE AT THIS TIME, WILL CONTINUE TO MONITOR
[2022-11-16 12:20] LABS: Hematocrit 27.1 % (33.0-51.0); Hemoglobin 7.8 g/dL (11.5-16.0)
--- NOTE | 2022-11-16 19:12 | NUR ---
NOTES: PATIENT ARRIVED TO ROOM AT AROUND 1600 TRANSFERRED FROM PCU. ASSUMED CARE OF PATIENT. PATIENT ALERT, AWAKE AND ORIENTED TO SELF AND PLACED. NO TELE. DENIES CP/PRESSURE, SOB AND GENERALIZED PAIN. VITAL SIGNS REVIEWED. PUREED DIET, NECTAR THICK FLUID c BS ACHS. BS BEFORE DINNER WAS 116. INCONTINENCE OF BLADDER, PUREWICK SYSTEM PLACED AND CONNECTED TO SUCTIONS. BED ALARM ON FOR SAFETY AND CALL LIGHT IN REACH.
[2022-11-17 04:29] VITALS: BP 95/53
[2022-11-17 05:37] LABS: Albumin, Blood 2.5 g/dL (3.4-5.0); Anion Gap 9 mmol/L (6-16); Blood Urea Nitrogen 30 mg/dL (8-24); Bun/Creatinine Ratio 9.2 (12.0-20.0); CO2, Blood 17 mmol/L (21-32); Chloride, Blood 113 mmol/L (98-108); Creatinine, Blood 3.27 mg/dL (0.40-1.00); Glomerular Filtration Rate 15 (60-); Glucose, Blood 114 mg/dL (70-99); Phosphorus, Blood 5.5 mg/dL (2.5-4.9); Potassium, Blood 3.7 mmol/L (3.5-5.5); Sodium, Blood 139 mmol/L (136-145)
[2022-11-17 06:13] VITALS: BP 100/49
--- NOTE | 2022-11-17 07:51 | NUR ---
SHIFT SUMMARY PATIENT A/O MOSTLY TO SELF AT BEGINING OF SHIFT. MORE ALERT BY HS MED PASS, TOOK RXs CRUSHED IN APPLESAUCE, TOLERTED WELL WITHOUT ANY DIFFICULTY SWALLOWING. DRANK ABOUT 120cc THICKENED JUICE. PUREWICK IN PLACE FOR Hx OF INCONTINENCE. BLADDER SCANNED AT END OF SHIFT, 5mL ONLY, ATTENDS WAS DRY. PIV TO RIGHT AC INFUSING NS@100mL CONTINUOUS. COMPLIANT WITH CPAP USE THROUGHOUT MOST OF SHIFT. BED LOW, BED ALARM ON FOR PATIENT SAFETY, CALL LIGHT WITHIN REACH.
[2022-11-17 08:55] LABS: Base Excess Venous -11.5 mmol/L; Bicarbonate Venous 15.7 mmol/L (24.0-30.0); PCO2 Venous 44.5 mmHg (38-42)
[2022-11-17 08:56] LABS: pH Blood Venous 7.18 (7.34-7.37)
--- NOTE | 2022-11-17 09:01 | NUR ---
NOTES: RECEIVED A CALL FROM ALICIA GALDAMEZ CRITICAL RESULT FROM ORDER THIS AM. THIS RN CALLED DR. CORONEL TO REPORT THIS ISSUES. PER DR. CORONEL HE WILL REVIEWED PATIENT LABS.
[2022-11-17 15:02] VITALS: BP 116/62
--- NOTE | 2022-11-17 16:31 | NUR ---
PATIENT HAS NOT HAVE URINE OUTPUT THIS SHIFT, BLADDER SCAN WERE PERFORMED IT APPEARS TO HAVE 318 MLS OF URINE IN BLADDER. PATIENT HAD CONTINOUS FLUIDS RUNNING FOR THE PAST 24 HRS c THE TOTAL OF 2086 MLS. THIS RN IS CONCERN ABOUT PATIENT CONDITION. CALLED DR. CORONEL TO REPORTS THIS ISSUE. PER DR. CORONEL TO CONTINUE MONITOR THE PATIENT.
--- NOTE | 2022-11-17 18:34 | NUR ---
SHIFT SUMMARY: PATIENT RESPONDS TO VERBAL STIMULI, ORAL CARE AND REPOSITIONING. OTHERWISE, VERY LETHARGIC THIS SHIFT. CRITICAL VBG LAB VALUES AND NO URINE OUTPUT THIS SHIFT, DR. CORONEL IS AWARE OF THIS ISSUES. BS RANGES 98-108. PIV TO RAC INFUSING SODIUM BICARB AT 100 MLS/HR. PIV TO LAC SALINE LOCKED. BP IS SOFT BUT STABLE. ON CPAP c SPO2 RANGES 94-96%. LUNGS STILL WHEEZY T/O TO AUSCULTATION. RECEIVED SCHEDULED PO MEDS PER EMAR CRUSHED c APPLE SAUCE. SCD'S IN PLACED TO BLE'S. BED ALARM ON FOR SAFETY. CALL LIGHT IN REACH.
[2022-11-17 19:44] VITALS: BP 109/47
[2022-11-18 04:34] LABS: Base Excess Venous -8.3 mmol/L; Bicarbonate Venous 18.3 mmol/L (24.0-30.0); PCO2 Venous 32.4 mmHg (38-42); pH Blood Venous 7.34 (7.34-7.37)
[2022-11-18 04:38] VITALS: BP 130/75
[2022-11-18 04:46] LABS: BASOPHILS ABSOLUTE AUTO 0.04 K/mm3 (0.00-0.23); BASOPHILS PERCENT AUTO 1 % (0-2); EOSINOPHILS ABSOLUTE AUTO 0.22 K/mm3 (0.00-0.68); EOSINOPHILS PERCENT AUTO 5 % (0-6); Hematocrit 25.8 % (33.0-51.0); Hemoglobin 7.3 g/dL (11.5-16.0); IMMATURE GRAN ABSOLUTE AUTO 0.12 K/mm3 (0.00-0.10); IMMATURE GRAN PERCENT AUTO 3 % (0-1); LYMPHOCYTES ABSOLUTE AUTO 1.09 K/mm3 (0.84-5.20); LYMPHOCYTES PERCENT AUTO 23 % (21-46); MONOCYTES ABSOLUTE AUTO 0.71 K/mm3 (0.16-1.47); MONOCYTES PERCENT AUTO 15 % (4-13); Mean Corpuscular HGB 26.2 pg (26.0-34.0); Mean Corpuscular HGB Conc 28.3 g/dL (31.5-36.5); Mean Corpuscular Volume 93 fL (80-100); Mean Platelet Volume 10.1 fL (9.1-12.4); NEUTROPHILS ABSOLUTE AUTO 2.64 K/mm3 (1.96-9.15); NEUTROPHILS PERCENT AUTO 55 % (41-73); NRBC ABSOLUTE 0.02 K/mm3 (0.00-0.02); NRBC Auto 0.4 /100 WBC (0.0-0.2); Platelet Count 177 K/mm3 (150-400); Red Blood Cell Count 2.79 M/mm3 (3.80-5.20); White Blood Cell Count 4.82 K/mm3 (4.00-11.30)
[2022-11-18 05:05] LABS: Bun/Creatinine Ratio 11.4 (12.0-20.0); Calcium, Blood 8.2 mg/dL (8.5-10.1); Creatinine, Blood 2.72 mg/dL (0.40-1.00); Potassium, Blood 3.6 mmol/L (3.5-5.5)
--- NOTE | 2022-11-18 07:35 | NUR ---
SHIFT SUMMARY PATIENT A/Ox1-2, ARROUSABLE TO REPOSITIONING. BY HS BECAME MORE ALERT, TOOK MEDICATION CRUSHED IN APPLESAUCE. DENIES PAIN NOR DISCOMFORT. ANATOLY CARE PROVIDED, INCONTINENT SINCE ADMISSION. ASLEEP THROUGHOUT REMAINDER OF SHIFT, CPAP ON WITH 1L SUPPLIMENTAL O2, SATS 90-95 ON CONTINUOUS BIOX. AT CHANGE OF SHIFT PATIENT AWAKE, FULLY ALERT, EXPRESSED HUNGER AND NEED TO VOID. URINE IS DARK, CONSENTRATED. PIV TO RIGHT AC INFUSING Na BiCARB AT 100mL/HR. SITTING UP IN BED AT THIS TIME IN NO ACUTE DISTRESS, CALL LIGHT WITHIN REACH. RE-ORIENTED PATIENT, STATES SHE MOSTLY TO SELF AT BEGINING OF SHIFT. MORE ALERT BY HS MED PASS, TOOK RXs CRUSHED IN APPLESAUCE, TOLERTED WELL WITHOUT ANY DIFFICULTY SWALLOWING. DRANK ABOUT 120cc THICKENED JUICE. PUREWICK IN PLACE FOR Hx OF INCONTINENCE. BLADDER SCANNED AT END OF SHIFT, 5mL ONLY, ATTENDS WAS DRY. PIV TO RIGHT AC INFUSING NS@100mL CONTINUOUS. COMPLIANT WITH CPAP USE THROUGHOUT MOST OF SHIFT. BED LOW, BED ALARM ON FOR PATIENT SAFETY, CALL LIGHT WITHIN REACH.
[2022-11-18 08:21] VITALS: BP 129/72
[2022-11-18 10:23] LABS: Stool Occult Bld Immuno 1 Positive (NEGATIVE)
[2022-11-18 14:37] LABS: Hematocrit 25.3 % (33.0-51.0); Hemoglobin 7.5 g/dL (11.5-16.0)
[2022-11-18 15:47] VITALS: BP 129/75
--- NOTE | 2022-11-18 18:30 | NUR ---
SHIFT SUMMARY- PER REPORT THIS MORNING THE PT IS MORE CONCIOUS THAN SHE HAS BEEN IN THE PAST 2 DAYS. PT IS STILL DISORIENTED AND HAS SOME ISSUES WITH SHORT TERM MEMORY. PT HAS 2 IV'S, 1 IN EACH AC, BOTH ARE POSITIONAL, PT NEEDS BOTH IV'S. PT HAD SOME COMPLAINTS OF BACK PAIN TODAY, PER MD NOTE SHE IS ON CHRONIC OPIATE MEDS FOR THIS, THERE WAS CONCERN FOR POLYPHARMACY SO THESE ARE NOT ORDERED AT THIS TIME. PT IN BED, CALL LIGHT IN REACH. PT PRESSES THE BUTTON FOR STAFF, BUT IF NO RESPONSE IN 30 SECONDS SHE WILL START YELLING FOR HELP, WHEN STAFF RESPOND SHE ASKS FOR A DRINK, OR A BLANKET OR THE BEDPAN. PT FREQUENTLY ASKS TO USE THE BED ABERNATHY WITH NO RESULT. BLADDER SCAN SHOWED ONLY 200ML POST VOID. AT ONE TIME THE PT WAS YELLING, WHEN STAFF CHECKED ON HER SHE STATED SHE WAS YELLING AT HER , WHEN INFORMED HER HAD LEFT SHE STATED "I KNOW" AND CONTINUED. PT HAS BEEN ON AND OFF THE BED ABERNATHY HOURLY. STOOL SAMPLE WAS SENT TO LAB AND POSITIVE FOR BLOOD. AWARE AND IS MONITORING. PT CURRENTLY IN BED CALL LIGHT IN REACH.
[2022-11-18 20:10] VITALS: BP 127/61
[2022-11-19 03:12] VITALS: BP 131/65
--- NOTE | 2022-11-19 04:06 | NUR ---
SHIFT SUMMARY TRUONG WAS ALERT AND ORIENTED TO SELF, AND SITUATION AT TIMES. AT THE START OF SHIFT THE IV IN HER RIGHT WRIST WENT BAD, IT PULLED MOST OF THE WAY OUT AND WAS LEAKING, NO EVIDENCE OF EXTRAVASATION. THE IV IN HER LEFT FOREARM IS STILL PATENT BUT POSITIONAL. PATIENT FREQUENTLY CALLS TO USE THE BEDPAIN WITHOUT RESULTS BUT DID MANAGE TO HAVE A SMALL BM THIS SHIFT. SHE SLEPT INTERMITTENTLY THROUGH THE SHIFT, AND HAD BOUTS OF CONFUSION WHERE SHE WAS YELLING AT HER WHO WAS NOT PRESENT. PT IS CURRENTLY RESTING IN BED AT A LOW POSITION WITH HER CPAP IN PLACE, AND CALL LIGHT IN REACH. SHE CAN USE THE CALL LIGHT, BUT TYPICALLY WILL CALL OUT INSTEAD.
[2022-11-19 04:40] LABS: Base Excess Venous -2.9 mmol/L; Bicarbonate Venous 22.1 mmol/L (24.0-30.0); PCO2 Venous 47.2 mmHg (38-42)
[2022-11-19 05:10] LABS: BASOPHILS ABSOLUTE AUTO 0.03 K/mm3 (0.00-0.23); BASOPHILS PERCENT AUTO 1 % (0-2); EOSINOPHILS ABSOLUTE AUTO 0.15 K/mm3 (0.00-0.68); EOSINOPHILS PERCENT AUTO 4 % (0-6); Hematocrit 24.6 % (33.0-51.0); Hemoglobin 7.1 g/dL (11.5-16.0); IMMATURE GRAN PERCENT AUTO 3 % (0-1); LYMPHOCYTES ABSOLUTE AUTO 0.93 K/mm3 (0.84-5.20); LYMPHOCYTES PERCENT AUTO 24 % (21-46); MONOCYTES ABSOLUTE AUTO 0.69 K/mm3 (0.16-1.47); MONOCYTES PERCENT AUTO 18 % (4-13); Mean Corpuscular HGB 26.3 pg (26.0-34.0); Mean Corpuscular HGB Conc 28.9 g/dL (31.5-36.5); Mean Corpuscular Volume 91 fL (80-100); Mean Platelet Volume 10.2 fL (9.1-12.4); NEUTROPHILS ABSOLUTE AUTO 1.99 K/mm3 (1.96-9.15); NEUTROPHILS PERCENT AUTO 51 % (41-73); NRBC ABSOLUTE 0.03 K/mm3 (0.00-0.02); NRBC Auto 0.8 /100 WBC (0.0-0.2); Platelet Count 197 K/mm3 (150-400); RDW Coefficient Variation 23.5 % (11.7-14.2); White Blood Cell Count 3.89 K/mm3 (4.00-11.30)
[2022-11-19 05:33] LABS: Calcium, Blood 8.1 mg/dL (8.5-10.1); Creatinine, Blood 1.69 mg/dL (0.40-1.00); Potassium, Blood 3.4 mmol/L (3.5-5.5)
[2022-11-19 07:41] VITALS: BP 128/64
[2022-11-19 13:34] LABS: Hematocrit 28.6 % (33.0-51.0); Hemoglobin 8.6 g/dL (11.5-16.0)
[2022-11-19 16:09] VITALS: BP 155/78
--- NOTE | 2022-11-19 18:43 | NUR ---
SHIFT SUMMARY- PT IS ALERT, PLESANT AND COOPERATIVE. SHE IS INTERMITENTLY CONFUSED. SHE IS RECIEVING IV FLUIDS. SHE WORKED WITH PT AND OT THIS SHIFT AND WAS UP TO THE CHAIR FOR MEALS. HER BED IS IN THE LOW POSITON AND CALL LIGHT IS WITIN REACH.
[2022-11-19 19:29] VITALS: BP 125/59
[2022-11-20 02:14] VITALS: BP 153/74
--- NOTE | 2022-11-20 04:22 | NUR ---
SHIFT SUMMARY TRUONG IS ALERT AND HAS IMPROVING ORIENTATION THIS SHIFT. SHE IS ORIENTED TO SELF PLACE AND SITUATION. SHE COOPERATIVE AND IS MUCH LESS IRRITABLE TONIGHT THAN THE PREVIOUS NIGHT. PT HAS CONCERNS ABOUT RETURNING HOME AND IS AFRAID THAT HER WILL BE UNABLE TO CARE FOR HER. RIGHT NOW WE ARE LOOKING AT POSSIBLE DISCHARGE TO [facility], OR HOME WITH HOME HEALTH. PT IS RESTING IN BED WITH CALL LIGHT IN REACH WHICH SHE IS BEGINING TO USE APPROPRIATELY
[2022-11-20 04:54] LABS: Base Excess Venous 1.5 mmol/L; Bicarbonate Venous 25.8 mmol/L (24.0-30.0); PCO2 Venous 34.1 mmHg (38-42); pH Blood Venous 7.48 (7.34-7.37)
[2022-11-20 05:20] LABS: Albumin, Blood 2.2 g/dL (3.4-5.0); Albumin/Globulin Ratio 0.7 (0.8-1.8); Bilirubin, Total 0.3 mg/dL (0.1-1.0); Calcium, Blood 8.4 mg/dL (8.5-10.1); Globulin, Blood 3.2 g/dL (2.2-4.0); Magnesium, Blood 1.5 mg/dL (1.6-2.4); Potassium, Blood 3.6 mmol/L (3.5-5.5); Total Protein, Blood 5.4 g/dL (6.4-8.2)
[2022-11-20 05:52] LABS: BASOPHILS ABSOLUTE AUTO 0.02 K/mm3 (0.00-0.23); BASOPHILS PERCENT AUTO 1 % (0-2); EOSINOPHILS ABSOLUTE AUTO 0.15 K/mm3 (0.00-0.68); EOSINOPHILS PERCENT AUTO 4 % (0-6); Hematocrit 24.9 % (33.0-51.0); Hemoglobin 7.5 g/dL (11.5-16.0); IMMATURE GRAN ABSOLUTE AUTO 0.09 K/mm3 (0.00-0.10); IMMATURE GRAN PERCENT AUTO 2 % (0-1); LYMPHOCYTES ABSOLUTE AUTO 1.07 K/mm3 (0.84-5.20); LYMPHOCYTES PERCENT AUTO 25 % (21-46); MONOCYTES ABSOLUTE AUTO 0.64 K/mm3 (0.16-1.47); MONOCYTES PERCENT AUTO 15 % (4-13); Mean Corpuscular HGB 26.8 pg (26.0-34.0); Mean Corpuscular HGB Conc 30.1 g/dL (31.5-36.5); Mean Corpuscular Volume 89 fL (80-100); NEUTROPHILS ABSOLUTE AUTO 2.32 K/mm3 (1.96-9.15); NEUTROPHILS PERCENT AUTO 54 % (41-73); NRBC ABSOLUTE 0.02 K/mm3 (0.00-0.02); NRBC Auto 0.5 /100 WBC (0.0-0.2); RDW Coefficient Variation 24.1 % (11.7-14.2); RDW Standard Deviation 77.2 fL (35.1-46.3); White Blood Cell Count 4.29 K/mm3 (4.00-11.30)
[2022-11-20 05:55] LABS: Mean Platelet Volume 10.3 fL (9.1-12.4)
[2022-11-20 06:01] LABS: Platelet Count 215 K/mm3 (150-400)
[2022-11-20 07:28] VITALS: BP 171/94
--- NOTE | 2022-11-20 16:18 | NUR ---
Upon receiving areferral for spiritual care, I visit the patient. She immediately tells me about her medical conditions, her alcohol addiction and her struggles with depression. She shares about the shattering of trust that she had with her sons and parents that was due to her poor choices fueled by alcohol. She also shares about her beliefs and her challenges to hold on to the wisdom and reflections from the [place] elders. We discuss the value and need to lean into spiritual/emotional/ mental resources fro strength and inspiration. I normalize her fears and feelings, reinforce helpful attitudes and practices and provide therapeutic listening and prayer. Patient responded well and showed signs of being encouraged in her beliefs and having greater resolve in her su with adiction.
[2022-11-20 16:34] VITALS: BP 183/111
--- NOTE | 2022-11-20 18:37 | NUR ---
SHIFT SUMMARY- PT IS A/O, PLESANT AND COOPERATIVE. SHE REFUSED BREAKFAST AND DINNER. SHE WAS UP TO THE CHAIR INTERMITENTLY THIS SHIFT. SHE C/O OF BACK PAIN AND DOES NOT TOLORATE BEING IN THE CHAIR FOR LONG. SHE WAS USING THE BSC THIS SHIFT. WORKED WITH PT AND OT. HER BED IS IN THE LOW POSTION AND CALL LIGHT IS WITIN REACH.
[2022-11-20 19:59] VITALS: BP 152/88
[2022-11-21 02:40] VITALS: BP 168/88
--- NOTE | 2022-11-21 04:26 | NUR ---
SHIFT SUMMARY. SHIFT HAS BEEN LARGELY UNREMARKABLE. PT IS AOX3-4, PLEASANT, COOPERATIVE WITH CARE. 1-PERSON ASSIST TO BEDSIDE COMMODE, CALLS APPROPRIATELY. NO PAIN REPORTED THIS SHIFT. NO MANIFESTATIONS OF WITHDRAWAL. SATTING WELL ON ROOM AIR THROUGHOUT SHIFT. SODIUM BICARBONATE RUNNING THROUGHOUT SHIFT WITH NO DIFFICULTY. TOLERATING PO INTAKE WELL. BED LOCKED IN LOWEST POSITION. CALL LIGHT LEFT WITHIN REACH.
[2022-11-21 07:13] VITALS: BP 155/88
[2022-11-21] MEDS ORDERED: PANTOPRAZOLE SO40 M2 PO (12:14)
== END 2022-11-21 18:15 | disposition home health service (06) | DRG 91 ==
LOC: ER 08:40 → MEDS 12:52 → PCU 12:52 → MEDS 12:53 → PCU 16:42 → MEDS 11-16 15:49 → ENPENDDIS 11-21 10:55 → MEDS 11-21 18:15
PROVIDERS: Emergency Medicine; Internal Medicine; ADMIT Internal Medicine
PROC: 5A09357 Assistance with Respiratory Ventilation, Less than 24 Consecutive Hours, Continuous Positive Airway Pressure (ICD-10-PCS; principal; 2022-11-15)
PROC: HZ2ZZZZ Detoxification Services for Substance Abuse Treatment (ICD-10-PCS; 2022-11-15)
DX: G92.8 Other toxic encephalopathy (principal); J96.21 Acute and chronic respiratory failure with hypoxia; J96.22 Acute and chronic respiratory failure with hypercapnia; N17.0 Acute kidney failure with tubular necrosis; F10.239 Alcohol dependence with withdrawal, unspecified; E51.2 Wernicke's encephalopathy; E87.4 Mixed disorder of acid-base balance; K92.2 Gastrointestinal hemorrhage, unspecified; F11.20 Opioid dependence, uncomplicated; K51.90 Ulcerative colitis, unspecified, without complications; D63.8 Anemia in other chronic diseases classified elsewhere; E83.42 Hypomagnesemia; K70.10 Alcoholic hepatitis without ascites; G47.33 Obstructive sleep apnea (adult) (pediatric); F41.9 Anxiety disorder, unspecified; F32.A Depression, unspecified; E03.9 Hypothyroidism, unspecified; M54.9 Dorsalgia, unspecified; E87.6 Hypokalemia; E66.01 Morbid (severe) obesity due to excess calories; I12.9 Hypertensive chronic kidney disease with stage 1 through stage 4 chronic kidney disease, or unspecified chronic kidney disease; K46.9 Unspecified abdominal hernia without obstruction or gangrene; T42.4X5A Adverse effect of benzodiazepines, initial encounter; E11.22 Type 2 diabetes mellitus with diabetic chronic kidney disease; M10.9 Gout, unspecified; G89.29 Other chronic pain; F13.90 Sedative, hypnotic, or anxiolytic use, unspecified, uncomplicated; F10.20 Alcohol dependence, uncomplicated; Y90.0 Blood alcohol level of less than 20 mg/100 ml; I95.9 Hypotension, unspecified; M19.90 Unspecified osteoarthritis, unspecified site; Z90.710 Acquired absence of both cervix and uterus; Z90.89 Acquired absence of other organs; Z87.19 Personal history of other diseases of the digestive system; Z88.8 Allergy status to other drugs, medicaments and biological substances; Z91.040 Latex allergy status; Z79.899 Other long term (current) drug therapy; Z88.1 Allergy status to other antibiotic agents; Z87.891 Personal history of nicotine dependence; Z68.30 Body mass index [BMI] 30.0-30.9, adult
CPT/HCPCS: 36415; 70450; 71045; 76770; 80048; 80053; 80069; 82140; 82274; 82607; 82728; 82746; 82803; 82947; 83540; 83550; 83690; 83735; 83880; 84100; 84439; 84443; 85014; 85018; 85025; 85027; 85610; 92526; 92610; 93005; 93010; 94640; 94660; 94664; 94760; 94762; 96361; 96365; 96368; 96375; 97110; 97116; 97162; 97165; 97530; 97535; 99285-25; A9270; C9113; G0480; J2060; J2405; J3411; J3475; J7030

== ENCOUNTER 2023-04-03 06:47 | Emergency (ER) | payer MEDICARE, OTHER ==
[~2023-04-03] VITALS: Ht 152.4 cm; Wt 90.7 kg
[~2023-04-03 06:47] MED LIST changes: +ACET500 PO; +ALBU8HFA2 INH; +ALLO100 PO; +Buspirone HCl15 MG PO; +CATAPRES0.1 MG; +CHLO10 PO; +CHLO25; +FENO160 PO; +FOLIC ACID0.4 MG PO; +Hair, Skin & N1 EACH PO; +LOSA50 PO; +MELATONIN5 M1 PO; +METO25 PO; +NAPR220 PO; +PANTOPRAZOLE SO40 M2 PO; +SERT100 PO; +SPIR25 PO; +TRAZ50 PO; +VITAMIN D5000 UNIT PO; +Vistaril50 MG PO; +ZYRTEC10 M2 PO
[2023-04-03 06:56] VITALS: BP 157/89
== END 2023-04-03 09:07 | disposition home or self-care (01) ==
LOC: ER 06:47
DX: F10.229 Alcohol dependence with intoxication, unspecified (principal); F41.9 Anxiety disorder, unspecified; I12.9 Hypertensive chronic kidney disease with stage 1 through stage 4 chronic kidney disease, or unspecified chronic kidney disease; E11.22 Type 2 diabetes mellitus with diabetic chronic kidney disease; N18.9 Chronic kidney disease, unspecified; E03.9 Hypothyroidism, unspecified; Z87.891 Personal history of nicotine dependence; Z79.899 Other long term (current) drug therapy; Z88.8 Allergy status to other drugs, medicaments and biological substances; Z91.040 Latex allergy status
CPT/HCPCS: 71046; 99284-25; A9270

== ENCOUNTER 2023-04-13 08:50 | Emergency (ER) | payer MEDICARE, OTHER ==
[~2023-04-13] VITALS: Ht 154.9 cm; Wt 90.7 kg
[2023-04-13 09:50] LABS: BASOPHILS ABSOLUTE AUTO 0.03 K/mm3 (0.00-0.23); BASOPHILS PERCENT AUTO 1 % (0-2); EOSINOPHILS ABSOLUTE AUTO 0.09 K/mm3 (0.00-0.68); EOSINOPHILS PERCENT AUTO 2 % (0-6); Hematocrit 24.9 % (33.0-51.0); Hemoglobin 7.3 g/dL (11.5-16.0); IMMATURE GRAN ABSOLUTE AUTO 0.01 K/mm3 (0.00-0.10); IMMATURE GRAN PERCENT AUTO 0 % (0-1); LYMPHOCYTES ABSOLUTE AUTO 0.94 K/mm3 (0.84-5.20); LYMPHOCYTES PERCENT AUTO 25 % (21-46); MONOCYTES ABSOLUTE AUTO 0.32 K/mm3 (0.16-1.47); MONOCYTES PERCENT AUTO 8 % (4-13); Mean Corpuscular HGB 23.9 pg (26.0-34.0); Mean Corpuscular HGB Conc 29.3 g/dL (31.5-36.5); Mean Corpuscular Volume 81 fL (80-100); Mean Platelet Volume 10.6 fL (9.1-12.4); NEUTROPHILS ABSOLUTE AUTO 2.44 K/mm3 (1.96-9.15); NEUTROPHILS PERCENT AUTO 64 % (41-73); Platelet Count 176 K/mm3 (150-400); RDW Coefficient Variation 18.7 % (11.7-14.2); RDW Standard Deviation 55.7 fL (35.1-46.3); Red Blood Cell Count 3.06 M/mm3 (3.80-5.20); White Blood Cell Count 3.83 K/mm3 (4.00-11.30)
[2023-04-13 10:11] LABS: Albumin, Blood 3.3 g/dL (3.4-5.0); Albumin/Globulin Ratio 0.8 (0.8-1.8); Bilirubin, Total 0.3 mg/dL (0.1-1.0); Bun/Creatinine Ratio 22.2 (12.0-20.0); Creatinine, Blood 0.77 mg/dL (0.40-1.00); Potassium, Blood 2.8 mmol/L (3.5-5.5); Total Protein, Blood 7.3 g/dL (6.4-8.2)
[2023-04-13] MEDS ORDERED: LORazepam 2 MG/ML 1ML Injection IV PRN (10:30)
[2023-04-13] MEDS ORDERED: Multivitamins 1 Tab PO ONE (10:30)
[2023-04-13 11:00] VITALS: BP 134/70
[2023-04-13 11:20] LABS: Source, Urine Clean Catch
[2023-04-13] MEDS ORDERED: Potassium Chloride 20 MEQ TabCR PO ONE (11:40)
[2023-04-13] MEDS ORDERED: NS 1,000 ML IV SCH (11:40)
[2023-04-13 11:46] LABS: Bilirubin, Urine Neg (Neg); Blood, Urine Neg (Neg); Glucose Qualitative, Urine Neg (Neg); Ketones, Urine Neg (Neg); Leukocyte Esterase, Urine 1+ (Neg); Nitrite, Urine Neg (Neg); Protein, Urine 1+ (Neg); Urobilinogen, Urine NORM (Normal)
[2023-04-13 12:05] LABS: Appearance, Urine Clear (Clear); Color, Urine Yellow (P-Yellow)
[2023-04-13 12:06] LABS: Bacteria Mod /hpf; Red Blood Cells, Urine 0-2 /hpf (0-2); Squamous Epithelial Cells Few /hpf (Few)
[2023-04-13 12:13] LABS: U Amphetamine Screen Not Detected; U Barbituate Screen Not Detected; U Benzodiazapine Screen Not Detected; U Buprenorphine Screen Not Detected; U Cannabinoids Screen Not Detected; U Cocaine Screen Not Detected; U Methadone Screen Not Detected; U Methamphetamine Screen Not Detected; U Opiates Screen Not Detected; U Oxycodone Screen Not Detected; U Phencyclidine Screen Not Detected
[2023-04-13] MEDS ORDERED: Potassium Chl 20MEQ/Water100ML 100 ML IV ONE (12:40)
== END 2023-04-13 13:05 | disposition home or self-care (01) ==
LOC: ER 08:50
PROVIDERS: Student in an Organized Health Care Education/Training Program
DX: F10.20 Alcohol dependence, uncomplicated (principal); Y90.5 Blood alcohol level of 100-119 mg/100 ml; E87.6 Hypokalemia; D64.9 Anemia, unspecified; Z87.891 Personal history of nicotine dependence; I10 Essential (primary) hypertension; E03.9 Hypothyroidism, unspecified; E11.9 Type 2 diabetes mellitus without complications; E78.1 Pure hyperglyceridemia; M10.9 Gout, unspecified; Z87.19 Personal history of other diseases of the digestive system; Z79.899 Other long term (current) drug therapy; Z88.8 Allergy status to other drugs, medicaments and biological substances; Z91.040 Latex allergy status
CPT/HCPCS: 71046; 80053; 81001; 83690; 85025; 87077; 87086; 87186; 93005; 93010; 96360; 96372-59; 99284-25; A9270; J2060; J3480; J7030

== ENCOUNTER 2023-04-17 18:12 | Emergency (ER) | payer MEDICARE, OTHER ==
[~2023-04-17] VITALS: Ht 154.9 cm; Wt 90.7 kg
[2023-04-17] MEDS ORDERED: NS 1,000 ML IV SCH (18:30)
[2023-04-17 18:44] LABS: BASOPHILS ABSOLUTE AUTO 0.05 K/mm3 (0.00-0.23); BASOPHILS PERCENT AUTO 1 % (0-2); EOSINOPHILS ABSOLUTE AUTO 0.12 K/mm3 (0.00-0.68); EOSINOPHILS PERCENT AUTO 2 % (0-6); Hematocrit 26.3 % (33.0-51.0); Hemoglobin 7.7 g/dL (11.5-16.0); IMMATURE GRAN ABSOLUTE AUTO 0.06 K/mm3 (0.00-0.10); IMMATURE GRAN PERCENT AUTO 1 % (0-1); LYMPHOCYTES ABSOLUTE AUTO 1.17 K/mm3 (0.84-5.20); LYMPHOCYTES PERCENT AUTO 18 % (21-46); MONOCYTES ABSOLUTE AUTO 0.66 K/mm3 (0.16-1.47); MONOCYTES PERCENT AUTO 10 % (4-13); Mean Corpuscular HGB Conc 29.3 g/dL (31.5-36.5); Mean Corpuscular Volume 82 fL (80-100); Mean Platelet Volume 10.9 fL (9.1-12.4); NEUTROPHILS ABSOLUTE AUTO 4.31 K/mm3 (1.96-9.15); NEUTROPHILS PERCENT AUTO 68 % (41-73); Platelet Count 250 K/mm3 (150-400); RDW Coefficient Variation 17.9 % (11.7-14.2); RDW Standard Deviation 52.9 fL (35.1-46.3); Red Blood Cell Count 3.21 M/mm3 (3.80-5.20); White Blood Cell Count 6.37 K/mm3 (4.00-11.30)
[2023-04-17 19:03] LABS: Albumin, Blood 3.4 g/dL (3.4-5.0); Albumin/Globulin Ratio 0.8 (0.8-1.8); Bilirubin, Total 0.3 mg/dL (0.1-1.0); Bun/Creatinine Ratio 10.7 (12.0-20.0); Creatinine, Blood 1.49 mg/dL (0.40-1.00); Potassium, Blood 2.8 mmol/L (3.5-5.5); Total Protein, Blood 7.4 g/dL (6.4-8.2)
[2023-04-17] MEDS ORDERED: Potassium Chloride 20 MEQ TabCR PO ONE (20:05)
[2023-04-17 21:15] VITALS: BP 126/74
[2023-04-17] MEDS ORDERED: POTCHL20ER PO (21:25)
== END 2023-04-17 21:38 | disposition home or self-care (01) ==
LOC: ER 18:12
PROVIDERS: Physician Assistant
DX: K76.82 Hepatic encephalopathy (principal); E87.6 Hypokalemia; F10.20 Alcohol dependence, uncomplicated; Z87.891 Personal history of nicotine dependence; Z79.899 Other long term (current) drug therapy; Z88.8 Allergy status to other drugs, medicaments and biological substances; Z91.040 Latex allergy status
CPT/HCPCS: 80053; 82140; 85025; 96360; 99284-25; A9270; J7030

== ENCOUNTER 2023-04-30 05:09 | Emergency (ER) | payer MEDICARE, OTHER ==
[~2023-04-30] VITALS: Ht 162.6 cm; Wt 136.1 kg
[~2023-04-30 05:09] MED LIST changes: +POTCHL20ER PO
[2023-04-30 08:30] VITALS: BP 145/72
== END 2023-04-30 08:48 | disposition home or self-care (01) ==
LOC: ER 05:09
DX: F10.20 Alcohol dependence, uncomplicated (principal); Z87.891 Personal history of nicotine dependence; I10 Essential (primary) hypertension; E11.9 Type 2 diabetes mellitus without complications; E03.9 Hypothyroidism, unspecified; M10.9 Gout, unspecified; E78.1 Pure hyperglyceridemia; Z79.899 Other long term (current) drug therapy; Z88.8 Allergy status to other drugs, medicaments and biological substances; Z91.040 Latex allergy status
CPT/HCPCS: 99283

== ENCOUNTER 2023-10-05 18:43 | Emergency (ER) | payer MEDICARE, OTHER ==
[~2023-10-05] VITALS: Ht 185.4 cm; Wt 102.1 kg
[~2023-10-05 18:43] MED LIST changes: +CAMPRAL PO; +FENO145 PO; +LACT10SY PO; +MIDO5 PO; +NITR100CA PO; +ONDA4ODT SL; +PANT40 PO; +Seroquel Xr50 MG PO
[2023-10-05 18:57] LABS: BASOPHILS ABSOLUTE AUTO 0.05 K/mm3 (0.00-0.23); BASOPHILS PERCENT AUTO 1 % (0-2); EOSINOPHILS ABSOLUTE AUTO 0.22 K/mm3 (0.00-0.68); EOSINOPHILS PERCENT AUTO 3 % (0-6); Hematocrit 29.6 % (33.0-51.0); Hemoglobin 8.6 g/dL (11.5-16.0); IMMATURE GRAN ABSOLUTE AUTO 0.04 K/mm3 (0.00-0.10); IMMATURE GRAN PERCENT AUTO 1 % (0-1); LYMPHOCYTES ABSOLUTE AUTO 1.29 K/mm3 (0.84-5.20); LYMPHOCYTES PERCENT AUTO 19 % (21-46); MONOCYTES ABSOLUTE AUTO 0.44 K/mm3 (0.16-1.47); MONOCYTES PERCENT AUTO 6 % (4-13); Mean Corpuscular HGB 26.9 pg (26.0-34.0); Mean Corpuscular HGB Conc 29.1 g/dL (31.5-36.5); Mean Corpuscular Volume 93 fL (80-100); Mean Platelet Volume 12.3 fL (9.1-12.4); NEUTROPHILS ABSOLUTE AUTO 4.79 K/mm3 (1.96-9.15); NEUTROPHILS PERCENT AUTO 70 % (41-73); Platelet Count 206 K/mm3 (150-400); RDW Coefficient Variation 17.2 % (11.7-14.2); RDW Standard Deviation 58.1 fL (35.1-46.3); White Blood Cell Count 6.83 K/mm3 (4.00-11.30)
[2023-10-05 19:23] LABS: Albumin, Blood 3.3 g/dL (3.4-5.0); Albumin/Globulin Ratio 0.9 (0.8-1.8); Bilirubin, Total 0.3 mg/dL (0.1-1.0); Bun/Creatinine Ratio 22.2 (12.0-20.0); Calcium, Blood 8.2 mg/dL (8.5-10.1); Creatinine, Blood 0.9 mg/dL (0.40-1.00); Globulin, Blood 3.6 g/dL (2.2-4.0); Potassium, Blood 4.1 mmol/L (3.5-5.5); Total Protein, Blood 6.9 g/dL (6.4-8.2)
[2023-10-05] MEDS ORDERED: CATAPRES0.1 MG PO (19:48)
[2023-10-05] MEDS ORDERED: MASOPHEN500 MG PO (19:48)
[2023-10-05] MEDS ORDERED: FOLI1 PO (19:49)
[2023-10-05] MEDS ORDERED: HYDPAM50 PO (19:51)
[2023-10-05] MEDS ORDERED: Ativan1 MG PO (19:52)
[2023-10-05] MEDS ORDERED: SIME80CH PO (20:26)
[2023-10-05] MEDS ORDERED: Ipratropium/Albuterol SulF 2.5-0.5MG/3 ML Amp INH ONE (20:35)
[2023-10-05] MEDS ORDERED: Furosemide 10 MG/ML 4ML Vial IV ONE (20:35)
[2023-10-05] MEDS ORDERED: Albuterol 2.5 MG/3 ML VIAL INH SCH (20:35)
[2023-10-05 22:15] VITALS: BP 122/66
[2023-10-05] MEDS ORDERED: RX Prepack Albuterol 1 PREPACK/6.7 GM INH UD ONE (22:40)
[2023-10-05] MEDS ORDERED: ALBU90OI INH (22:51)
[2023-10-05] MEDS ORDERED: PRED20 PO ×2 (22:51→22:53)
[2023-10-05] MEDS ORDERED: PredniSONE 20 MG Tab PO ONE (22:55)
== END 2023-10-05 22:57 | disposition home or self-care (01) ==
LOC: ER 18:43
PROVIDERS: Student in an Organized Health Care Education/Training Program
DX: J44.1 Chronic obstructive pulmonary disease with (acute) exacerbation (principal); I11.0 Hypertensive heart disease with heart failure; I50.20 Unspecified systolic (congestive) heart failure; Z91.040 Latex allergy status; Z88.8 Allergy status to other drugs, medicaments and biological substances; Z88.2 Allergy status to sulfonamides; Z79.899 Other long term (current) drug therapy; E03.9 Hypothyroidism, unspecified; E11.9 Type 2 diabetes mellitus without complications; M10.9 Gout, unspecified; Z87.891 Personal history of nicotine dependence
CPT/HCPCS: 71045; 80053; 83880; 84145; 85025; 93005; 93010; 94640; 94664; 96374; 99285-25; A9270; J1940; J7512

== ENCOUNTER 2023-10-15 08:13 | Emergency (ER) | payer MEDICARE, OTHER ==
[~2023-10-15] VITALS: Ht 152.4 cm; Wt 99.8 kg
[~2023-10-15 08:13] MED LIST changes: +ALBU90OI INH; +Ativan1 MG PO; +CATAPRES0.1 MG PO; +MASOPHEN500 MG PO; +PRED20 PO; +SIME80CH PO
[2023-10-15] MEDS ORDERED: Diazepam 5 MG Tab PO ONE (09:40)
[2023-10-15 09:56] LABS: BASOPHILS ABSOLUTE AUTO 0.02 K/mm3 (0.00-0.23); BASOPHILS PERCENT AUTO 0 % (0-2); EOSINOPHILS ABSOLUTE AUTO 0.07 K/mm3 (0.00-0.68); EOSINOPHILS PERCENT AUTO 1 % (0-6); Hematocrit 35.4 % (33.0-51.0); Hemoglobin 10.7 g/dL (11.5-16.0); IMMATURE GRAN ABSOLUTE AUTO 0.04 K/mm3 (0.00-0.10); IMMATURE GRAN PERCENT AUTO 0 % (0-1); LYMPHOCYTES ABSOLUTE AUTO 1.16 K/mm3 (0.84-5.20); LYMPHOCYTES PERCENT AUTO 11 % (21-46); MONOCYTES ABSOLUTE AUTO 0.07 K/mm3 (0.16-1.47); MONOCYTES PERCENT AUTO 1 % (4-13); Mean Corpuscular HGB 26.2 pg (26.0-34.0); Mean Corpuscular HGB Conc 30.2 g/dL (31.5-36.5); Mean Corpuscular Volume 87 fL (80-100); Mean Platelet Volume 12.5 fL (9.1-12.4); NEUTROPHILS ABSOLUTE AUTO 9.18 K/mm3 (1.96-9.15); NEUTROPHILS PERCENT AUTO 87 % (41-73); Platelet Count 258 K/mm3 (150-400); RDW Coefficient Variation 16.6 % (11.7-14.2); RDW Standard Deviation 52.7 fL (35.1-46.3); Red Blood Cell Count 4.09 M/mm3 (3.80-5.20); White Blood Cell Count 10.54 K/mm3 (4.00-11.30)
[2023-10-15] MEDS ORDERED: NS 1,000 ML IV SCH (10:15)
[2023-10-15 10:23] LABS: International Normalized Ratio 1.21; Prothrombin Time Results 12.8 Sec (9.7-11.5)
[2023-10-15] MEDS ORDERED: Magnesium Sulf 2 GM/Water 50ML 50 ML IV ONE (10:25)
[2023-10-15 12:02] LABS: Albumin, Blood 3.4 g/dL (3.4-5.0); Bilirubin, Total 0.4 mg/dL (0.1-1.0); Bun/Creatinine Ratio 34.7 (12.0-20.0); Calcium, Blood 9.3 mg/dL (8.5-10.1); Creatinine, Blood 1.18 mg/dL (0.40-1.00); Globulin, Blood 3.4 g/dL (2.2-4.0); Potassium, Blood 3.9 mmol/L (3.5-5.5); Total Protein, Blood 6.8 g/dL (6.4-8.2)
[2023-10-15] MEDS ORDERED: ONDA4ODT MM (16:06)
[2023-10-15] MEDS ORDERED: Ondansetron HCl 2 MG / ML 2ML Vial IV ONE (16:10)
[2023-10-15 17:15] VITALS: BP 132/65
[2023-10-16] MEDS ORDERED: FUROSEMIDE20 MG PO (06:31)
[2023-10-16] MEDS ORDERED: Naltrexone HCl50 MG PO (06:43)
[2023-10-16] MEDS ORDERED: Potassium Chlo20 ME1 PO (06:44)
[2023-10-16] MEDS ORDERED: ACAMPROSATE CA333 MG PO (19:44)
[2023-10-16] MEDS ORDERED: MELA3 PO (19:53)
[2023-10-16] MEDS ORDERED: ONDA4ODT MM (19:54)
[2023-10-16] MEDS ORDERED: PANT40 PO (19:55)
[2023-10-16] MEDS ORDERED: ALBU90OI INH (19:59)
== END 2023-10-15 17:22 | disposition home or self-care (01) ==
LOC: ER 08:13
PROVIDERS: Emergency Medicine
DX: K85.90 Acute pancreatitis without necrosis or infection, unspecified (principal); R09.02 Hypoxemia; E83.42 Hypomagnesemia; F10.11 Alcohol abuse, in remission; J44.9 Chronic obstructive pulmonary disease, unspecified; I11.9 Hypertensive heart disease without heart failure; I50.30 Unspecified diastolic (congestive) heart failure; E03.9 Hypothyroidism, unspecified; E11.8 Type 2 diabetes mellitus with unspecified complications; Z87.891 Personal history of nicotine dependence; Z79.51 Long term (current) use of inhaled steroids; Z79.52 Long term (current) use of systemic steroids; Z79.899 Other long term (current) drug therapy; Z91.040 Latex allergy status; Z88.1 Allergy status to other antibiotic agents; Z88.8 Allergy status to other drugs, medicaments and biological substances
CPT/HCPCS: 71045; 74177; 80053; 82140; 82550; 83690; 83735; 83880; 84484; 85025; 85610; 93005; 93010; 96361; 96365-59; 96366; 96375; 99285-25; J2405; J3475; J7030; Q9967

== ENCOUNTER 2023-10-15 23:53 | Inpatient (IN) | payer MEDICARE, OTHER ==
[~2023-10-15] VITALS: Ht 154.9 cm; Wt 105.3 kg
[2023-10-16] MEDS ORDERED: Lactated Ringer's 1,000 ML IV SCH ×2 (01:55→05:00)
[2023-10-16 02:09] LABS: Hematocrit 30.2 % (33.0-51.0); Hemoglobin 9.1 g/dL (11.5-16.0); Mean Corpuscular HGB 26.5 pg (26.0-34.0); Mean Corpuscular HGB Conc 30.1 g/dL (31.5-36.5); Mean Corpuscular Volume 88 fL (80-100); Mean Platelet Volume 12.3 fL (9.1-12.4); Platelet Count 192 K/mm3 (150-400); RDW Coefficient Variation 16.8 % (11.7-14.2); RDW Standard Deviation 54.1 fL (35.1-46.3); Red Blood Cell Count 3.44 M/mm3 (3.80-5.20); White Blood Cell Count 10.29 K/mm3 (4.00-11.30)
[2023-10-16 02:22] LABS: Alanine Aminotransfer (ALT/SGP 17 U/L (12-78); Albumin/Globulin Ratio 0.9 (0.8-1.8); Alk Phos 86 U/L (50-136); Anion Gap 13 mmol/L (3-11); Aspartate Aminotrans (AST/SGOT 21 U/L (12-37); Bilirubin, Total 0.3 mg/dL (0.1-1.0); Blood Urea Nitrogen 38 mg/dL (8-24); Bun/Creatinine Ratio 22.9 (12.0-20.0); CO2, Blood 22 mmol/L (21-32); Calcium, Blood 7.7 mg/dL (8.5-10.1); Chloride, Blood 110 mmol/L (98-108); Creatinine, Blood 1.66 mg/dL (0.40-1.00); Globulin, Blood 3.3 g/dL (2.2-4.0); Glomerular Filtration Rate 34 (60-); Glucose, Blood 85 mg/dL (70-99); Potassium, Blood 4.3 mmol/L (3.5-5.5); Sodium, Blood 141 mmol/L (136-145); Total Protein, Blood 6.3 g/dL (6.4-8.2)
[2023-10-16 02:42] LABS: BAND PERCENT MAN 15 % (0-8); BASOPHILS PERCENT MAN 0 % (0-2); EOSINOPHILS PERCENT MAN 0 % (0-6); LYMPHOCYTES ABSOLUTE MAN 0.41 K/mm3 (0.84-5.20); LYMPHOCYTES PERCENT MAN 4 % (21-46); MONOCYTES PERCENT MAN 1 % (4-13); NEUTROPHILS ABSOLUTE MAN 9.77 K/mm3 (1.96-9.15); SEG NEUTROPHILS PERCENT MAN 80 % (41-73); TOTAL CELLS COUNTED 100
[2023-10-16 02:51] LABS: Source, Urine Fem Cath
[2023-10-16 02:53] LABS: Bilirubin, Urine Neg (Neg); Blood, Urine 2+ (Neg); Glucose Qualitative, Urine Neg (Neg); Ketones, Urine Neg (Neg); Leukocyte Esterase, Urine 1+ (Neg); Nitrite, Urine Neg (Neg); Protein, Urine 3+ (Neg); Urobilinogen, Urine NORM (Normal)
[2023-10-16 03:07] LABS: Amorphous Light (0-Heavy); Appearance, Urine Clear (Clear); Bacteria Mod /hpf; Color, Urine Yellow (P-Yellow); Red Blood Cells, Urine 0-2 /hpf (0-2); Squamous Epithelial Cells Not Seen /hpf (Few)
[2023-10-16 03:30] LABS: Influenza A, PCR NEGATIVE (NEGATIVE); Influenza B, PCR NEGATIVE (NEGATIVE); Resp Syncytial Virus, PCR NEGATIVE (NEGATIVE); SARS-Cov-2 (COVID-19) PCR, MMC NEGATIVE (NEGATIVE)
[2023-10-16] MEDS ORDERED: Ondansetron HCl 2 MG / ML 2ML Vial IV PRN (04:30)
[2023-10-16] MEDS ORDERED: Acetaminophen 325 MG TABLET PO PRN (04:30)
[2023-10-16 04:59] LABS: CHOL/HDL RATIO 1.7; Cholesterol 109 mg/dL (50-200); HDL Cholesterol 65 mg/dL (>39); LDL/HDL RATIO 0.2; Low Density Lipoprotein Chol 15 mg/dL (0-110); Triglycerides 144 mg/dL (30-160); Very Low Density Lipoprot Chol 28 mg/dL (6-32)
[2023-10-16] MEDS ORDERED: MetroNIDAZOLE 500MG/NS 100 ml 100 ML IV SCH (05:15)
[2023-10-16] MEDS ORDERED: CefTRIAXone Sodium 1,000 MG in NS 100 ML IV SCH (06:00)
[2023-10-16] MEDS ORDERED: Levothyroxine Sodium 0.1 MG Tab PO SCH (06:00)
[2023-10-16] MEDS ORDERED: Lactated Ringer's 1,000 ML IV ONE (06:10)
[2023-10-16] MEDS ORDERED: FUROSEMIDE20 MG PO (06:31)
[2023-10-16] MEDS ORDERED: Naltrexone HCl50 MG PO (06:43)
[2023-10-16] MEDS ORDERED: Potassium Chlo20 ME1 PO (06:44)
[2023-10-16 07:38] LABS: Percent Saturation 1.2 % (15.0-50.0)
[2023-10-16] MEDS ORDERED: Heparin Sodium,Porcine 5,000 UNIT/0.5 ML SDV SC SCH (09:00)
[2023-10-16] MEDS ORDERED: Docusate Sodium 100 MG Cap PO SCH (09:00)
[2023-10-16] MEDS ORDERED: Gabapentin 300 MG Cap PO SCH (09:00)
[2023-10-16] MEDS ORDERED: Lactulose 20 GM/30 ML UDC PO SCH (09:00)
[2023-10-16] MEDS ORDERED: Thiamine HCl 100 MG Tab PO SCH (09:00)
--- NOTE | 2023-10-16 12:17 | NUR ---
"Spiritual Care | Pt. Request Pt. is in ED14 when this district representative responds to her spiritual care request. Pt. welcomes this district representative, and verbalizes her need for prayer as she has great anxiety. Pt. displays evidence of both anxiety and SOB. Facilitated a bit of a life review. Prayed for the the Pt. Pt. verbalized gratitude for the spiritual care visit and welcomed this district representative to return."
--- NOTE | 2023-10-16 12:49 | NUR ---
ADMISSION NOTE: PATIENT ARRIVED TO THE UNIT VIA GURNEY AT 1230. PATIENT WAS ABLE TO SELF TRANSFER TO THE RESTROOM WITH MINIMAL ASSISTANCES; WET HERSELF IN THE GURNEY. NEEDED ASSISTED WITH WIPING AND PUTTING ON DEPEND. PATIENT ABLE TO WALK WITH FWW TO BED; ATTACHED TO 2 L OF O2. PROVIDED A LUNCH TRAY AND VITALS OBTAINED. NO SIGNS OR SYMPTOMS OF DISTRESS.
[2023-10-16 13:27] LABS: Bun/Creatinine Ratio 24.7 (12.0-20.0); Calcium, Blood 8.3 mg/dL (8.5-10.1); Creatinine, Blood 1.58 mg/dL (0.40-1.00)
[2023-10-16 13:54] VITALS: BP 172/99
[2023-10-16] MEDS ORDERED: ALPRAZolam 0.25 MG Tab PO PRN (15:25)
[2023-10-16] MEDS ORDERED: Sod Ferric Gluc Complx/Sucrose 125 MG in NS 100 ML IV SCH (15:57)
--- NOTE | 2023-10-16 17:20 | NUR ---
Spiritual Care Follow up Pt. is sitting up in a chair eating when she welcomes my visit. Pt. had displayed significant anxiety when in ED14, so this follow up was designed to see how she was doing. Pt. verbalized that she is much better but that she was still waiting to see the doctor. Pts. nurse came to check vitals so this tank farm gauger excused himself. Pt. verbalized gratitude for the spiritual care follow up. Will remain available to the Pt.
[2023-10-16] MEDS ORDERED: ACAMPROSATE CA333 MG PO (19:44)
[2023-10-16] MEDS ORDERED: MELA3 PO (19:53)
[2023-10-16 19:54] VITALS: BP 115/80
[2023-10-16] MEDS ORDERED: ONDA4ODT MM (19:54)
[2023-10-16] MEDS ORDERED: PANT40 PO (19:55)
[2023-10-16] MEDS ORDERED: ALBU90OI INH (19:59)
[2023-10-16] MEDS ORDERED: ALPRAZolam 0.25 MG Tab PO ONE (23:30)
[2023-10-16] MEDS ORDERED: HYDROcodone 5-APAP 325 TAB PO PRN (23:40)
[2023-10-17] VITALS (7 sets, daily range): BP systolic 128–155; BP diastolic 45–120
[2023-10-17] MEDS ORDERED: ChlordiazePOXIDE 25 MG Cap PO PRN ×2 (00:55→01:00)
[2023-10-17] MEDS ORDERED: Ondansetron HCl 2 MG / ML 2ML Vial IV PRN (01:00)
[2023-10-17] MEDS ORDERED: Loperamide HCl 2 MG Cap PO PRN (01:00)
[2023-10-17] MEDS ORDERED: LORazepam 2 MG/ML 1ML Injection IV PRN ×2 (01:00)
[2023-10-17] MEDS ORDERED: Albuterol HFA200 ACT/6.7 GM INH INH PRN (01:45)
--- NOTE | 2023-10-17 01:52 | NUR ---
PT ANXIOUS AT START OF SHIFT. XANAX 0.25 MG WAS GIVEN WHICH WAS PRN BID. WAS NOT VERY EFFECTIVE. AROUND 2350 PT BECAME EVEN MORE ANXIOUS, WITH C/O SEVERE "TENSION HEADACHE" PT STATES SHE OCCASIONALLY GETS THESE AT HOME AND COLD THERAPY USALLY WORKS. COLD TOWELS AND ICE PACK PROVIDED AND DID NOT SEEM TO BE EFFECTIVE. DR. GONZALEZ NOTIFIED AND ORDERED A 1X ADDITIONAL 0.25 MG XANAX AND PRN NORCO STARTED. PT ALSO STARTED TO BECOME NAUSEAS AFTER MIDNIGHT. PER ER PHSYCIAN NOTE PT HAD BEEN SOBER FOR 19 DAYS. PATIENT STATES SHE LIED TO ER PHYSICIAN AND HER FAMILY AND HER LAST DRINK WAS ON 10/13. DR. WELLS NOTIFIED AND CIWA PROTOCOL STARTED. PT NOW REQUIRING 5L NC WHEN SHE WAS ON 2L AFTER 1X XANAX, NORCO AND ABOUT AN HOUR LATER AN AMINISTRATION OF 25 MG OF LIBRIUM FOR CIWA SCORE OF 13. CONTINUOUS PULSE OX ON AND PT SATTING 94% ON THE 5L. WILL ATTEMPT TO WEAN DOWN. PT IS LESS RESTLESS, LESS ANXIOUS AND NOW RESTING IN BED. ALERT, ANSWERING QUESTIONS APPROPRIATELY.
[2023-10-17 05:09] LABS: Anion Gap 9 mmol/L (3-11); Blood Urea Nitrogen 30 mg/dL (8-24); Bun/Creatinine Ratio 22.2 (12.0-20.0); CO2, Blood 26 mmol/L (21-32); Calcium, Blood 8.2 mg/dL (8.5-10.1); Chloride, Blood 110 mmol/L (98-108); Creatinine, Blood 1.35 mg/dL (0.40-1.00); Glomerular Filtration Rate 43 (60-); Glucose, Blood 147 mg/dL (70-99); Magnesium, Blood 1.8 mg/dL (1.6-2.4); Phosphorus, Blood 3.9 mg/dL (2.5-4.9); Potassium, Blood 4.1 mmol/L (3.5-5.5); Sodium, Blood 141 mmol/L (136-145)
[2023-10-17] MEDS ORDERED: AmLODIPine Besylate 5 MG Tab PO SCH (09:00)
[2023-10-17] MEDS ORDERED: Multivitamins 1 Tab PO SCH (09:00)
[2023-10-17] MEDS ORDERED: Folic Acid 1 MG in NS 50 ML IV SCH (09:00)
[2023-10-17] MEDS ORDERED: Thiamine HCl 100 MG in NS 50 ML IV SCH (09:00)
[2023-10-17] MEDS ORDERED: Enoxaparin 40 MG/0.4 ML SYR SC SCH (09:00)
[2023-10-17] MEDS ORDERED: Melatonin 3 MG Tab PO PRN (15:35)
[2023-10-17] MEDS ORDERED: CloNIDine 0.1 MG Tab PO PRN (15:40)
[2023-10-17] MEDS ORDERED: Methocarbamol 500 MG Tab PO PRN (15:40)
[2023-10-17] MEDS ORDERED: Pantoprazole Sodium 40 MG Tab PO SCH (16:30)
--- NOTE | 2023-10-17 17:49 | NUR ---
PT CHANGE LOC. DOES AWAKEN, BUT FALLS BACK TO SLEEP. SNORING HEAVILY. ON 4L O2. >92% DR MEJIA NOTIFIED. ORDERS ABG.
[2023-10-17] MEDS ORDERED: Simethicone 80 MG Chew PO SCH (18:00)
[2023-10-17 18:08] LABS: PCO2 Arterial 63.7 mmHg (35-45); PO2 Arterial 68.2 mmHg (80-100); pH Blood Arterial 7.23 (7.35-7.45)
--- NOTE | 2023-10-17 18:32 | NUR ---
UPDATED DR WITH RESULTS ABG. REQUEST BIPAP. CALLED RT. WILL SEND UP SHORTLY.
--- NOTE | 2023-10-17 18:36 | NUR ---
IN TO SEE PT. TRNSFER TO U. RT NOT BROUGHT BIIPAP YET
--- NOTE | 2023-10-17 18:53 | NUR ---
PT WAS WAKING UP THIS DAY UNTIL 4-5 PM. BEGAN PULLING OFF ROBE, PULLING O2 OFF. PULLING TELE OFF. O2 DROPS TO LOW/MID 80'S WHEN PULLS O2/ REPLACED. SHE BREATHING HARDER, BBARELY AWAKENS WITH STERNAL RUB INSTEAD OF PRIOR FIGITY AND ANX. PT FALLS RIGHT BACK TO SLEEP. VITALS TAKEN. SOME HTN. DISCUSSED WITH DR. MEJIA. ORDERS ABG. ORDERS FOR BIPAP WITH RESULTS OF ABG. PLANS FOR TRANSFER TO PCU WHEN ROOM AVAIL. BIPAP IN PLACE. PT QUIET. TOLERATING. BED INLOW POSITION, CALL LITE IN REACH, [facility]ED ALARM [facility]
[2023-10-17] MEDS ORDERED: Ipratropium/Albuterol SulF 2.5-0.5MG/3 ML Amp INH PRN (19:05)
[2023-10-17 20:04] LABS: Base Excess Venous -0.6 mmol/L; Bicarbonate Venous 23.6 mmol/L (24.0-30.0); pH Blood Venous 7.29 (7.34-7.37)
[2023-10-17] MEDS ORDERED: BusPIRone HCl 10 MG Tab PO SCH (21:00)
[2023-10-17] MEDS ORDERED: QUEtiapine Fumarate 50 MG TAB PO SCH (21:00)
[2023-10-17] MEDS ORDERED: Allopurinol 100 MG Tab PO SCH (21:00)
[2023-10-18] VITALS (15 sets, daily range): BP systolic 104–168; BP diastolic 46–88
[2023-10-18 04:35] LABS: Hematocrit 29.1 % (33.0-51.0); Hemoglobin 8.7 g/dL (11.5-16.0); Mean Corpuscular HGB 26.5 pg (26.0-34.0); Mean Corpuscular HGB Conc 29.9 g/dL (31.5-36.5); Mean Corpuscular Volume 89 fL (80-100); Mean Platelet Volume 12.1 fL (9.1-12.4); Platelet Count 148 K/mm3 (150-400); RDW Coefficient Variation 16.7 % (11.7-14.2); RDW Standard Deviation 54.4 fL (35.1-46.3); Red Blood Cell Count 3.28 M/mm3 (3.80-5.20); White Blood Cell Count 10.91 K/mm3 (4.00-11.30)
--- NOTE | 2023-10-18 04:36 | NUR ---
SHIFT SUMMARY. SHIFT HAS OVERALL BEEN UNREMARKABLE. PT BROUGHT DOWN TO PCU EARLY IN SHIFT FROM MEDICAL FLOOR ON BIPAP AVAP D/T INCREASING CONFUSION, LETHARGY, ABG REVEALING HYPERCAPNIA AND MILD ACIDOSIS. PT HAS REMAINED CONFUSED AND LETHARGIC THROUGHOUT SHIFT. DOES NOT ANSWER QUESTIONS/FOLLOW COMMANDS. 2X THIS SHIFT HAS BECOME INCREASINGLY AGITATED/ANXIOUS BUT REMAINS UNABLE TO VOICE SOURCE OF DISCOMFORT AND INSTEAD MOANS/PULLS AT MASK. LACTIC LAST DRAWN 10/15, WAS WNL AT THAT TIME. PT AFEBRILE. VBG FOLLOWING ABG SHOWED VALUES MOVING IN THERAPEUTIC DIRECTION AFTER BIPAP WAS PUT IN PLACE. UNCOLLECTED URINE SAMPLE WAS COLLECTED VIA STRAIGHT CATH THIS MORNING AFTER SPEAKING WITH RESIDENT DR. SADLER. VITALS HAVE BEEN STABLE THROUGHOUT SHIFT. RUNNING SINUS THROUGHOUT SHIFT ON TELE. CIWAs HAVE BEEN ELEVATED DURING THE TWO TIMES PT BECAME MORE AGITATED, ATIVAN 2MG ADMINISTERED 2X OTHERWISE PT HAS BEEN SLEEPING AND APPEARS COMFORTABLE. BED LOCKED IN LOWEST POSITION. CALL LIGHT LEFT WITHIN REACH. CONTINUING TO MONITOR.
[2023-10-18 04:56] LABS: Albumin, Blood 2.8 g/dL (3.4-5.0); Anion Gap 9 mmol/L (3-11); Blood Urea Nitrogen 15 mg/dL (8-24); Bun/Creatinine Ratio 14.9 (12.0-20.0); CO2, Blood 26 mmol/L (21-32); Calcium, Blood 8.5 mg/dL (8.5-10.1); Chloride, Blood 113 mmol/L (98-108); Creatinine, Blood 1.01 mg/dL (0.40-1.00); Glomerular Filtration Rate 61 (60-); Glucose, Blood 106 mg/dL (70-99); Phosphorus, Blood 2.2 mg/dL (2.5-4.9); Potassium, Blood 4.1 mmol/L (3.5-5.5); Sodium, Blood 144 mmol/L (136-145)
[2023-10-18] MEDS ORDERED: Levothyroxine Sodium 100 MCG Vial IV ONE (06:00)
[2023-10-18] MEDS ORDERED: Potassium Phosphate Dibasic 30 MM in Dextrose 5% 500 ML IV STA (08:37)
[2023-10-18] MEDS ORDERED: Losartan Potassium 50 MG Tab PO SCH (09:00)
[2023-10-18] MEDS ORDERED: Sertraline HCl 100 MG Tab PO SCH (09:00)
[2023-10-18] MEDS ORDERED: Fenofibrate, Micronized 134 MG Capsule PO SCH (09:00)
[2023-10-18] MEDS ORDERED: Naltrexone HCl 50 MG Tab PO SCH (09:00)
[2023-10-18 09:03] LABS: PCO2 Arterial 55 mmHg (35-45); PO2 Arterial 101 mmHg (80-100); pH Blood Arterial 7.32 (7.35-7.45)
--- NOTE | 2023-10-18 10:00 | NUR ---
AM NOTE this rn assumed care at 0700. vital signs stable. spo2 >90% on bipap. patient at the start of shift pulling bipap off during bedside report with bry rn and patient anxious and thrashing bed. ciwa score >10 and this rn medicated with ativan. upon reassessment patient less anxious and laying in bed not pulling at lines. patient is moaning and groaning and making sounds. patient not stating words. patient will not follow commands or open eyes. this rn had to open patient eyes then [ateint immediately fell back asleep. md laughlin at bedsdie during assessment and attempting to wake patient but unable to arouse patient or get patient to follow commands. see shift assessment for further detials. plan of care is up to date
[2023-10-18] MEDS ORDERED: NS 500 ML IV ONE (10:01)
--- NOTE | 2023-10-18 13:00 | NUR ---
update this rn into room d/t phyllis rn calling and stating patient continue to pull mask off and switched to nc 2l. patient at bedside and this rn updated. patient groaning and stating "i want to eat" " i cant eat" " i want to get up" this rn asked the patient to open eyes to assist patient to get up or eat. patient not following commands. patient would take spoonful of water then attempting with a straw patient stating " i dont know how" and then would use the straw to drink the water. patient trying to calm patient down but unable too. patient attempting to eat but not swallowing food. thus rn educated the on risk for aspiration despite patient swallowing water the patient is hold the food in her mouth and trying to eat but is not fully alert to do so at this time. will attempt at dinner. patient verbalized understanding and agreed. patient continuing to pull at lines. this rn did a ciwa score >10 and gave ativan to the patient and upon reassessment is more calm and less anxious.
--- NOTE | 2023-10-18 16:18 | NUR ---
UPDATE this rn called md laughlin due to patient anxiety increasing, pulling at lines, and unable to follow commands. discussed the ciwa protocol and difficulty getting an accurate ciwa score due to mentation. md laughlin order ativan iv until patient mentation improves to do accurate ciwa score. md laughlin wants patient on the bipap so co2. see orders
[2023-10-18] MEDS ORDERED: LORazepam 2 MG/ML 1ML Injection IV PRN (16:20)
[2023-10-18] MEDS ORDERED: Haloperidol Lactate Inj. 5 MG/ML Injection IV PRN (16:25)
[2023-10-18] MEDS ORDERED: NS 500 ML IV SCH (16:25)
--- NOTE | 2023-10-18 17:44 | NUR ---
shift summary patient received dose of haldol per emar, see emar. due to patient continuing to pull off bipap and pulling at lines, despite the dose of iv ativan. patient responded well to haldol and is resting without pulling at lines at this time. vitals remain stable. patient on bipap. no acute changes. plan of care up to date
[2023-10-18] MEDS ORDERED: Haloperidol Lactate Inj. 5 MG/ML Injection IM ONE (18:15)
--- NOTE | 2023-10-18 18:20 | NUR ---
update patient thrashing in bed and pulling at bipap, clothes and tele. this rn unable to keep bipap on. patient on 2l nc. this rn called md laughlin and updated her, an order for 2.5mg haldol IM order and given to the patient.
--- NOTE | 2023-10-18 19:12 | NUR ---
Transfer summary PT to ICU room 7 from PCU room 11 via bed. Pt is mumbling and moaning constantly. Words are difficult to make out- pt asked if she is in pain and sts "all over". Pt asked to open eyes but cannot- does raise eyebrows though. Pt rolling from side to side on bed constantly- redirection attempted. Pt is on 8l O2 via nc- sats are 99%. RT to room- plan to put pt on bi-pap when she can tolerate it. Pt on continuous cardiac rn- tachy at 100. Bp stable. Pt is afebrile. Skin intact- small bruise to left lower abdomen. Pt has dry attends on. Precedex infusion initiated at 0.2mcg/kg/hr. Call light provided. Plan of care ongoing.
--- NOTE | 2023-10-18 19:25 | NUR ---
transfer note patient continuing to pull at lines and mask. this rn called md laughlin and orders for precedex and transfer to icu. this rn gave bedside report to icu nurse. bry rn called point of contact and left voicemail. patient left with all belongings.
--- NOTE | 2023-10-18 21:42 | NUR ---
PT DAVID CALLS FOR UPDATE.
[2023-10-19] VITALS (50 sets, daily range): BP systolic 101–189; BP diastolic 60–113
[2023-10-19 04:21] LABS: Hematocrit 27.5 % (33.0-51.0); Hemoglobin 8.2 g/dL (11.5-16.0); Mean Corpuscular HGB 26.4 pg (26.0-34.0); Mean Corpuscular HGB Conc 29.8 g/dL (31.5-36.5); Mean Corpuscular Volume 88 fL (80-100); Mean Platelet Volume 11.7 fL (9.1-12.4); Platelet Count 143 K/mm3 (150-400); RDW Coefficient Variation 16.7 % (11.7-14.2); RDW Standard Deviation 54.2 fL (35.1-46.3); Red Blood Cell Count 3.11 M/mm3 (3.80-5.20); White Blood Cell Count 7.34 K/mm3 (4.00-11.30)
[2023-10-19 04:41] LABS: Albumin, Blood 2.6 g/dL (3.4-5.0); Anion Gap 7 mmol/L (3-11); Blood Urea Nitrogen 10 mg/dL (8-24); Bun/Creatinine Ratio 13.9 (12.0-20.0); CO2, Blood 28 mmol/L (21-32); Calcium, Blood 8.2 mg/dL (8.5-10.1); Chloride, Blood 113 mmol/L (98-108); Creatinine, Blood 0.72 mg/dL (0.40-1.00); Glomerular Filtration Rate 92 (60-); Glucose, Blood 122 mg/dL (70-99); Phosphorus, Blood 2.4 mg/dL (2.5-4.9); Potassium, Blood 4.4 mmol/L (3.5-5.5); Sodium, Blood 144 mmol/L (136-145)
--- NOTE | 2023-10-19 06:06 | NUR ---
End of shift summary No acute events overnight. Pt has precedex running at 0.6mcg/kg/hr. Pt appears to be sleeping at this time. Pt had 2 episodes of agitation resuting in titrating medication up per emar. Pt required one prn dose of ativan w/ good effect. Pt took of bi-pap earlier in shift. O2 via nc has been titrated down to 3l. Sats are 94%. 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 Bp stable. Pt was incontinent of urine- pure wick placed w/ little output. No bowel movement. Call light w/in reach. Plan of care ongoing. Pt calls and updated during shift on pt's condition. Tells this rn that pt drinks approx 10-15 small bottles of fireball daily but has not had any drinks for approx 15 days. Sts he will visit in am.
[2023-10-19] MEDS ORDERED: Potassium Phosphate Dibasic 30 MM in Dextrose 5% 500 ML IV STA (07:42)
[2023-10-19 08:14] LABS: PCO2 Arterial 49.8 mmHg (35-45); PO2 Arterial 69.8 mmHg (80-100); pH Blood Arterial 7.36 (7.35-7.45)
[2023-10-19] MEDS ORDERED: NS 250 ML IV PRN (11:05)
[2023-10-19] MEDS ORDERED: Morphine Sulfate 4 MG/1 ML Injection IV PRN (19:45)
[2023-10-19] MEDS ORDERED: OLANZapine 10 MG Vial IM PRN (19:50)
[2023-10-19] MEDS ORDERED: HydrALAZINE HCl 20 MG / ML 1ML Vial IV PRN (19:50)
--- NOTE | 2023-10-19 21:53 | NUR ---
ASSUMPTION OF CARE: RECEIVED REPORT FROM MIRYAM SORIA. PT UNABLE TO ANSWER ORIENTATION QUESTIONS OR FOLLOW COMMANDS. PT FREQUENTLY SCREAMING AND PULLING AT LINES AND WIRES. NOT REDIRECTABLE OR REORIENTABLE. PT ON 9L NC WITH SPO2 88-93%. RR 30-40'S. SITECORE DEVELOPER IN PLACE, SR/ST WITH HR 80'S-120'S. SBP 160'S-200'S. PRECEDEX AT 1.5 MCG/KG/HR UPON ARRIVAL. PUREWICK IN PLACE, DRAINING MIRYAM COLORED URINE. ATTENDS IN PLACE WELL. NO BM YET. POWERGLIDE TO ANAND/CHARLETTE BOTH PATENT. BED LOW AND LOCKED.
[2023-10-20] VITALS (39 sets, daily range): BP systolic 135–181; BP diastolic 58–136
--- NOTE | 2023-10-20 05:41 | NUR ---
SHIFT SUMMARY: NO ACUTE EVENTS OVERNIGHT. PT CONTINUES TO HOLLER MOST OF THE NIGHT AND PULLS AT LINES AND WIRES. NOT ORIENTED OR FOLLOWING COMMANDS. NOT REDIRECTABLE. PT CONTINUALLY SCREAMING TO "GET ME OUT OF HERE". PRECEDEX REMAINS AT 1.5 MCG/KG/HR. PT ON 8L NC WITH SPO2 >90%. RR 20'S. PT IN SR WITH HR 70'S. SBP 150-180, MEDICATED PER EMAR FOR SBP >160. LUNGS REMAIN COARSE AT TIMES AND DIMINISHED. PUREWICK IN PLACE, DRAINING DARK MIRYAM COLORED URINE. NO BM THIS SHIFT. POWERGLIDE TO CHARLETTE/ANAND BOTH PATENT. BED LOW AND LOCKED, CALL LIGHT IN REACH.
[2023-10-20 08:54] LABS: PCO2 Arterial 45.4 mmHg (35-45); PO2 Arterial 97.5 mmHg (80-100); pH Blood Arterial 7.37 (7.35-7.45)
[2023-10-20] MEDS ORDERED: OLANZapine 10 MG Vial IM PRN (12:40)
[2023-10-20] MEDS ORDERED: FentaNYL Citrate 50 MCG/ML 2 ML Injection IV PRN (12:40)
--- NOTE | 2023-10-20 17:57 | NUR ---
DAY SHIFT SUMMARY PT BEGAN THE SHIFT W PRECEDEX GTT INFUSING AT 1.5 MCG/KG/HR BUT THIS WAS TITRATED DOWN AND EVENTUALLY OFF FOR SEVERAL HOURS UNTIL THE PATIENT BECAME VERY AGITATED SCREAMING OUT NOT BEING REDIRECTABLE AT ALL SO PRECEDEX GTT RESUMED. PT GIVEN IM ZYPREXA X2 THIS SHIFT AND THIS AFTERNOON SHE WAS CALM ENOUGH TO TAKE PO MEDICATION SO HER 2100 MEDICATIONS WERE GIVEN WITH WATER AND SHE TOLERATED THIS WELL. DESPITE TAKING HER PILLS W/O DIFFICULTY IT WAS ATTEMPTED TO FEED HE DINNER BUT THE PT WOULD HOLD FOOD INN HER MOUTH SHOWING CONCERNS FOR ASPIRATION SO HER DINNER WAS WITHHELD. PT'S MONITOR SHOWING SR 60'S-90'S DEPENDING ON HER LEVEL OF AGITATION. PT'S BP ELEVATED ESPECIALLY WHEN SHE WAS AGITATED BUT SHE HAD SBP IN THE 130'S WHEN AT REST. IV HYDRALAZINE GIVEN X1 THIS SHIFT. PT AFEBRILE THIS SHIFT. SPO2 >90% ON 4LNC AFTER SHE SPENT MOST OF THE MORNING WEARING HER BIPAP MASK. WILL REPORT TO ONCOMING RN.
--- NOTE | 2023-10-20 22:37 | NUR ---
PATIENT AWAKENING SLIGHTLY TO VOICE. STARTING TO OVER BREATH BIPAP. PATIENT INFORMED OF NEED FOR IM MEDICATION. INJECTED WITHOUT DIFFICULTY AND PATIENT GOING BACK TO SLEEP. PRECEDEX SLOWLY DECREASING OVER PERIOD OF HOURS.
[2023-10-21] VITALS (33 sets, daily range): BP systolic 125–183; BP diastolic 56–100
[2023-10-21 03:24] LABS: Hematocrit 27.7 % (33.0-51.0); Hemoglobin 8.5 g/dL (11.5-16.0); Mean Corpuscular HGB 26.2 pg (26.0-34.0); Mean Corpuscular HGB Conc 30.7 g/dL (31.5-36.5); Mean Corpuscular Volume 86 fL (80-100); Mean Platelet Volume 11.9 fL (9.1-12.4); Platelet Count 147 K/mm3 (150-400); RDW Coefficient Variation 16.9 % (11.7-14.2); RDW Standard Deviation 52.4 fL (35.1-46.3); Red Blood Cell Count 3.24 M/mm3 (3.80-5.20); White Blood Cell Count 6.82 K/mm3 (4.00-11.30)
[2023-10-21 03:49] LABS: Bun/Creatinine Ratio 14.9 (12.0-20.0); Calcium, Blood 8.3 mg/dL (8.5-10.1); Creatinine, Blood 0.74 mg/dL (0.40-1.00); Potassium, Blood 3.6 mmol/L (3.5-5.5)
--- NOTE | 2023-10-21 05:15 | NUR ---
PATIENT AWAKENING AND CLEARLY MAKING HER NEEDS KNOWN. ABLE TO SWALLOW PILLS IN APPLESAUCE. GIVEN PILLS EARLY DUE TO ONLY HAVING PERIODS OF CLARITY AND SAFETY TO SWALLOW PILLS.
--- NOTE | 2023-10-21 06:25 | NUR ---
PATIENT FALLING ASLEEP, BUT AWAKENING IN A PANIC STATING THAT SHE CANNOT BREATH. PATIENT REASSURED AND PLACED BACK ON HOME CPAP, INITIAL MASK NOT FITTING FACE WELL, RT CALLED AND MASK CHANGED TO BETTER FITTING MASK. AFTER APPLICATION OF MASK PATIENT FALLING TO SLEEP. UNABLE TO GIVEN ANY OTHER PO MEDICATIONS PATIENT SO SLEEPY
[2023-10-21] MEDS ORDERED: Lactobacil 2-S.Thermo-Bifido 1 1 Cap PO SCH (09:00)
--- NOTE | 2023-10-21 11:46 | NUR ---
TRUONG IS UNCOMFORTABLE, THERE IS NO POSITION THAT SHE LIKES OR FEELS COMFORTABLE IN. SHE IS RESTLESS. ASKED WHAT SHE IS USED TO AT HOME AND SHE STATES RECLINER BUT DOESN'T WANT IN THE ONE AT BEDSIDE. BED MOVED TO RECLINER POSITION. CONTINUES TO COMPLAIN OF BEING COLD. PULSES REMAIN STRONG IN ALL EXTREMITIES. WAS ABLE TO USE THE BED ABERNATHY WITH ASSISTANCE.
--- NOTE | 2023-10-21 12:39 | NUR ---
CALLED AND SPOKE TO JAMIR ABOUT BRINGING IN THE PATIENT'S CPAP MACHINE. SAYS SHE HAS THE OXYGEN CONCENTRATOR AND THE BIG MACHINE THAT IS NOT PORTABLE. SHE SAYS SHE HAS ONE BY THE BED, DENIES THIS.
--- NOTE | 2023-10-21 13:09 | NUR ---
TRUONG GOT UP IN THE CHAIR, SHE WAS ABLE TO SHUFFLE HER FEET AND PIVOT INTO THE CHAIR. SHE WAS IN THE CHAIR FOR ABOUT 10 MINUTES AND WANTED TO GET BACK IN BED. DIFFICULT TRANSITION TO THE BED, SHE WAS COMPLAINING OF PAIN IN HER LEGS AND BACK WHILE TRANSFERRING. SHE CAN'T FIND A COMFORTABLE POSITION. HER BREATHING REMAINS TACHYPNEIC WITH GRUNTING, SHE CONTINUES IN SINUS BUT WITH ACTIVITY IS NOW TACHY. BP IS ELEVATED. SHE HAS ONLY TAKEN IN BITES AND SIPS. ADAL VIRAMONTES ASKED FOR AND GIVEN BY RT ALICIA.
--- NOTE | 2023-10-21 13:14 | NUR ---
Spiritual Care visit. Pt. is awake in bed when she welcomes my visit. Pt. is unsettled by the presence of discomfort from having just been tsnaferred back into bed. Facilitate an update and listen with empathy and a calkming presence. Pt. verbbalized some questions about God, as this water resources program director was responing to her. Pts. spouse arrived at bedside. Sensing that the Pt. had stopped sharing this water resources program director offered to pray for the pt. Pt. agreed. Afetr prayer Pt. verbalized gratitude for the spiritual care visit, and welcomed this water resources program director to return.
--- NOTE | 2023-10-21 14:08 | NUR ---
TRUONG'S IS HERE, HAS BEEN HERE FOR NEARLY AN HOUR. SHE IS COMMUNICATING WELL WITH HIM, SHE HAS NOT BEEN DOING THE LOUD GROANING WHILE BREATHING. HE STATES THAT SHE DOES NOT HAVE A CPAP MACHINE AT HOME. HE SAID THEY RECOMMENDED IT LAST TIME BUT THAT NOTHING HAD BEEN SET UP FOR THEM. HE SAID THEY USE THE OXYGEN ONLY.
--- NOTE | 2023-10-21 17:51 | NUR ---
TRUONG REMAINS OFF THE PRECEDEX DRIP SINCE 1020 THIS MORNING. SHE HAS MENTIONED SEEING BLACK BUGS ON THE CEILING AND COMING FROM THE TV, BUT SHE ALSO HAS MEN- TIONED THAT SHE IS IN NEED OF A PROCEDURE BY THE EYE DOCTOR. SHE HAS BEEN BUSY REPOSITIONING ALL DAY, UP TO THE CHAIR, UP TO THE BSC, IN THE BED. SHE DOES DO A LARGE PORTION OF THE REPOSITIONING, SHE HAS LEARNED TO USE THE HEADBOARD AND THE SIDERAILS TO ASSIST HER IN PULLING UP. 3L/NC IN USE, SATS >93%. APPETITE INCREASING T/O THE DAY BUT STILL NOT EATING BUT A FEW BITES AT A TIME. DRINKING FLUIDS. VOIDS PER PUREWICK, STOOL X 2. HERE FOR ABOUT AN HOUR, HER "SPONSOR" JUST VISITED BRIEFLY. VERY PRODUCTIVE DAY FOR TRUONG.
--- NOTE | 2023-10-21 20:53 | NUR ---
PATIENT AWAKE AND ALERT, BUT CONFUSED TO DAY OF THE WEEK. REORIENTED AND REASSURED. MEDICATED WITH ALL MEDICATIONS DUE TO PATIENT HAVING PERIODS OF CONFUSION AND UNABLE TO SWALLOW PILLS ON TIMES SCHEDULE. PATIENT PLACED ON BIPAP FOR SLEEP WITH 3 LITERS BLED IN. GEL PAD PLACED ON FACE PRIOR TO PUTTING MASK ON.
[2023-10-22] VITALS (13 sets, daily range): BP systolic 117–174; BP diastolic 59–119
--- NOTE | 2023-10-22 01:59 | NUR ---
PATIENT COMPLAINING ABOUT BEING ANXIOUS AND HAVING HALLUCINATIONS. MEDICATED WITH CLONIDINE PO AND AWAITING RESULTS.
[2023-10-22 03:47] LABS: Albumin, Blood 2.3 g/dL (3.4-5.0); Anion Gap 11 mmol/L (3-11); Blood Urea Nitrogen 8 mg/dL (8-24); Bun/Creatinine Ratio 10.5 (12.0-20.0); CO2, Blood 23 mmol/L (21-32); Calcium, Blood 7.7 mg/dL (8.5-10.1); Chloride, Blood 116 mmol/L (98-108); Creatinine, Blood 0.76 mg/dL (0.40-1.00); Glomerular Filtration Rate 86 (60-); Glucose, Blood 83 mg/dL (70-99); Phosphorus, Blood 2.5 mg/dL (2.5-4.9); Sodium, Blood 147 mmol/L (136-145)
--- NOTE | 2023-10-22 04:13 | NUR ---
PATIENT COMPLAINING MASK ON CPAP TO TIGHT AND HER FACE IS HURTING. REFUSING TO WEAR HER CPAP ANY LONGER.
--- NOTE | 2023-10-22 05:05 | NUR ---
PATIENT UP TO BEDSIDE COMMODE WITH MODERATE AMOUNT OF ASSISTANCE. ABLE TO VOID WITHOUT DIFFICULTY AND HELPED BACK TO BED.
[2023-10-22] MEDS ORDERED: Potassium Chloride 20 MEQ/15 ML UDC PO ONE ×2 (08:05→09:25)
[2023-10-22] MEDS ORDERED: Potassium Chloride 20 MEQ TabCR PO SCH ×2 (09:00)
[2023-10-22] MEDS ORDERED: Furosemide 20 MG Tab PO SCH (09:00)
--- NOTE | 2023-10-22 14:00 | NUR ---
PT A/O TO SELF AND PLACE. SOMETIMES USES CALL LIGHT, OTHER TIMES YELLS OUT FOR STAFF. OOB TO CHAIR AND TO BSC SEVERAL TIMES TODAY. OOB FOR MEALS WITH 1 PERSON ASSIST AND FWW. POOR APPETITE. TRANSFERED TO MEDICAL FLOOR VIA W/C, NO SIGN OF DISTRESS.
--- NOTE | 2023-10-22 15:04 | NUR ---
ASSUMED CARE NOTE RECEIVED REPORT FROM RADIOLOGY PRACTITIONER ASSISTANT JOYCE AND ASSUMED CARE OF PT AT 1405. PT A&OX3, AMB W/ ASSIST FROM W/C TO BED, AND DENIED PAIN. PT ORIENTED TO ROOM AND CALL LIGHT AND EDUCATED ON CALLING BEFORE ATTEMPTING TO GET OUT OF BED. CALL LIGHT PLACED WITHIN REACH. BED ALARM ON.
--- NOTE | 2023-10-22 15:30 | NUR ---
Spiritual Care Visit. Pt. has been transferred to Room 351. Pt is awake in bed when she welcomes my visit. Pt. displays evidence of SOB as she oftern cannot complete a sentence without losing her breath. Pt. verbalizes a story of visions of friends and family that she has experienced. An extended time of devloping a current life story takes place. Considered matters of mehnaz and her bois forte traditions. Pt. verbalized the desire to be forgiven of her sin. Listen with empathy and a calming presence. Prayed with Pt. Pt. grabbed this chaplains hand and verbalized gratitude for the prayer and the spiritual care visit.
--- NOTE | 2023-10-22 17:51 | NUR ---
SHIFT SUMMARY PT A&OX3-ABLE TO ANSWER QUESTIONS APPROPRIATELY, BUT HAVING VISUAL HALLUCINATIONS AT TIMES, ON 2L O2 NC- CPAP PROVIDED AT BEDSIDE BUT NON COMPLIANT, TOLERATING PO, AND DENIED PAIN. CALL LIGHT WITHIN REACH AND PT ABLE TO MAKE NEEDS KNOWN. BED ALARM ON FOR SAFETY.
[2023-10-22] MEDS ORDERED: Potassium Chloride 20 MEQ TabCR PO ONE (19:15)
[2023-10-22] MEDS ORDERED: Amoxicillin/Clavulanate K 875 MG Tab PO SCH (21:00)
--- NOTE | 2023-10-22 22:14 | NUR ---
PT IS CURRENTLY RESTING WITH EYES CLOSED. 2L NC. SPEECH IS MUMBLED. PT REPORTS SEEING SPIDERS ON CEILING AND JARRELL. SHE STATED THAT SHE THOUGHT I WAS A BLACK CAT. PT REPORTS BEING AWARE THAT SHE IS HALLUCINATING. BED ALARM WITH CALL LIGHT IN REACH. PT STATES THAT SHE DOES HALLUCINATE WHEN "COMING OFF OF ALCOHOL" CALM AND COOPERATIVE WITH CARES. ABLE TO MAKE NEEDS NEEDS KNOWN, DENIES CHEST PAIN, SOB.
--- NOTE | 2023-10-23 | NUR ---
PT DESAT TO 86% ON CPAP, RT NOTIFIED, PER RT, LEAK OF 46 OK FOR THE CPAP MACHINE, TOLD THIS RN TO INCREASE 02 BLEED IN. PT CURRENTLY 4L BLEED IN SAT 90% ON CPAP
[2023-10-23 04:13] VITALS: BP 152/64
[2023-10-23 06:50] LABS: Bun/Creatinine Ratio 6.5 (12.0-20.0); Calcium, Blood 8.5 mg/dL (8.5-10.1); Creatinine, Blood 1.24 mg/dL (0.40-1.00); Magnesium, Blood 1.5 mg/dL (1.6-2.4); Potassium, Blood 4.3 mmol/L (3.5-5.5)
[2023-10-23 07:15] VITALS: BP 131/66
[2023-10-23] MEDS ORDERED: Mag Sulfate 1 GM/D5% 100ML 100 ML IV STA (08:22)
[2023-10-23 16:14] VITALS: BP 106/56
--- NOTE | 2023-10-23 17:32 | NUR ---
SHIFT SUMMARY PT REMAINS ON 2L O2 NC DURING THE DAY AND ENCOURAGED TO AMB FOR ELIMINATION NEEDS. PHYSICAL THERAPY AND OCCUPATIONAL THERAPY ATTEMPTED TO WORK W/ PT, BUT PT TOO DROWSY TO PARTICIPATE. PT'S MAGNESIUM LOW AND MAG INFUSION GIVEN PER ORDER. NO OTHER ACUTE CHANGES THIS SHIFT. CALL LIGHT WITHIN REACH AND BED ALARM ON.
[2023-10-23 19:06] VITALS: BP 104/47
[2023-10-24 03:05] VITALS: BP 116/50
[2023-10-24 05:48] LABS: BASOPHILS ABSOLUTE AUTO 0.03 K/mm3 (0.00-0.23); BASOPHILS PERCENT AUTO 0 % (0-2); EOSINOPHILS ABSOLUTE AUTO 0.17 K/mm3 (0.00-0.68); EOSINOPHILS PERCENT AUTO 3 % (0-6); Hematocrit 27.4 % (33.0-51.0); Hemoglobin 7.7 g/dL (11.5-16.0); IMMATURE GRAN ABSOLUTE AUTO 0.37 K/mm3 (0.00-0.10); IMMATURE GRAN PERCENT AUTO 5 % (0-1); LYMPHOCYTES ABSOLUTE AUTO 1.25 K/mm3 (0.84-5.20); LYMPHOCYTES PERCENT AUTO 18 % (21-46); MONOCYTES ABSOLUTE AUTO 0.41 K/mm3 (0.16-1.47); MONOCYTES PERCENT AUTO 6 % (4-13); Mean Corpuscular HGB 26.3 pg (26.0-34.0); Mean Corpuscular HGB Conc 28.1 g/dL (31.5-36.5); Mean Corpuscular Volume 94 fL (80-100); Mean Platelet Volume 11.6 fL (9.1-12.4); NEUTROPHILS ABSOLUTE AUTO 4.64 K/mm3 (1.96-9.15); NEUTROPHILS PERCENT AUTO 68 % (41-73); Platelet Count 146 K/mm3 (150-400); RDW Coefficient Variation 18.4 % (11.7-14.2); RDW Standard Deviation 61.4 fL (35.1-46.3); Red Blood Cell Count 2.93 M/mm3 (3.80-5.20); White Blood Cell Count 6.87 K/mm3 (4.00-11.30)
[2023-10-24 06:12] LABS: Bun/Creatinine Ratio 4.5 (12.0-20.0); Calcium, Blood 8.4 mg/dL (8.5-10.1); Creatinine, Blood 2.24 mg/dL (0.40-1.00); Potassium, Blood 4.8 mmol/L (3.5-5.5)
[2023-10-24 06:31] LABS: BAND PERCENT MAN 2 % (0-8); BASOPHILS PERCENT MAN 0 % (0-2); EOSINOPHILS PERCENT MAN 3 % (0-6); LYMPHOCYTES ABSOLUTE MAN 0.75 K/mm3 (0.84-5.20); LYMPHOCYTES PERCENT MAN 11 % (21-46); METAMYELOCYTE ABSOLUTE MAN 0.06 K/mm3 (0.00-0.00); METAMYELOCYTE PERCENT MAN 1 % (0-0); MONOCYTES ABSOLUTE MAN 0.27 K/mm3 (0.16-1.47); MONOCYTES PERCENT MAN 4 % (4-13); MYELOCYTE ABSOLUTE MAN 0.13 K/mm3 (0.00-0.00); MYELOCYTE PERCENT MAN 2 % (0-0); NEUTROPHILS ABSOLUTE MAN 5.42 K/mm3 (1.96-9.15); SEG NEUTROPHILS PERCENT MAN 77 % (41-73); TOTAL CELLS COUNTED 100
[2023-10-24 07:25] VITALS: BP 120/50
--- NOTE | 2023-10-24 14:32 | NUR ---
Spiritual Care Visit. Pt is awake in a recliner when she welcomes my visit. Pt. verbalizes that she was able to stand up during PT. Facilitated a lengthy life update. Pt. shaered hopes and dreams for her family. Listened with empathy and interest. Pt. verbalized that she looked forward to being discharged to [facility]. Considered matters of mehnaz and recovery. Prayed with pt. Pt. verbalized gratitude for the spiritual care visits.
[2023-10-24 16:09] VITALS: BP 133/58
--- NOTE | 2023-10-24 19:19 | NUR ---
SHIFT SUMMARY- PT ALERT AND ORIENTED A LITTLE FORGETFUL. SHE WAS UP IN THE CHAIR TODAY FOR A COUPLE OF HOURS AND SHE REQUIRES ENCOURAGEMENT TO PERFORM ADLS FOR HERSELF. SHE SEEMS TO LACK MOTIVATION TO DO FOR HERSELF, BUT WITH ENCOURAGEMENT, AND STAFF INSISTANCE THAT SHE HAS TO PARTICIPATE IN HER CARE A LITTLE, SHE HAS DONE WELL. SHE STATED LATER IN THE DAY THAT SHE ACTUALLY FELT A LITTLE BETTER. PT BACK IN BED THIS EVENING. SHE USES THE CALL LIGHT AND IF STAFF DO NOT RESPOND WITHIN A MINUTE SHE WILL YELL OUT "NURSE!" STAFF HAVE REMINDED HER THAT IT TAKES TIME FOR STAFF TO RESPOND. STAFF EXPLAINED TO HER THE IMPORTANCE OF GROUPING HER CARE NEEDS. SHE STARTED BEING A LITTLE MORE PATIENT IN THE LATER PART OF THE SHIFT. SHE STILL CALLS FREQUENTLY, TO HAVE A BUTTON PUSHED OR AN ITEM MOVED, HOWEVER SHE WAITS A LITTLE LONGER BEFORE YELLING INT0 THE OROSCO. PT IS SITTING UP IN BED EATING HER DINNER NO S&S OF DISTRESS NOTED. REPORT COMPLETED WITH NIGHT RN. FREQUENT REMINDERS, GROUPING CARE NEEDS AND LOTS OF ENCOURAGEMENT ARE REQUIRED FROM ALL STAFF ASSISTING IN HER CARE. SHE IS ABLE TO STAND AND TRANSFER TO THE CHAIR AND THE BSC WITH 1PA AND A FWW. NO BED ABERNATHY IS NEEDED FOR HER CURRENTLY.
[2023-10-24 19:35] VITALS: BP 127/66
[2023-10-25 03:41] VITALS: BP 133/67
--- NOTE | 2023-10-25 03:55 | NUR ---
SHIFT SUMMARY RT ATTEMPTED TO REDUCE BIPAP SETTINGS IN PREPARATION TO D/C TO SNF BUT PATIENT DID NOT TOLERATE, AND WAS RETURNED TO ORIGINAL SETTINGS. PT HAS SLEPT MAJORITY OF SHIFT. HOB ELEVATED. ABLE TO MAKE NEEDS KNOWN, CALL LIGHT IN REACH. CONTINUOUS PULSE OX MONITORING.
[2023-10-25 05:32] LABS: BASOPHILS ABSOLUTE AUTO 0.03 K/mm3 (0.00-0.23); BASOPHILS PERCENT AUTO 1 % (0-2); EOSINOPHILS ABSOLUTE AUTO 0.17 K/mm3 (0.00-0.68); EOSINOPHILS PERCENT AUTO 3 % (0-6); Hematocrit 27.7 % (33.0-51.0); Hemoglobin 7.9 g/dL (11.5-16.0); IMMATURE GRAN ABSOLUTE AUTO 0.32 K/mm3 (0.00-0.10); IMMATURE GRAN PERCENT AUTO 5 % (0-1); LYMPHOCYTES ABSOLUTE AUTO 1.28 K/mm3 (0.84-5.20); LYMPHOCYTES PERCENT AUTO 20 % (21-46); MONOCYTES ABSOLUTE AUTO 0.43 K/mm3 (0.16-1.47); MONOCYTES PERCENT AUTO 7 % (4-13); Mean Corpuscular HGB 26.6 pg (26.0-34.0); Mean Corpuscular HGB Conc 28.5 g/dL (31.5-36.5); Mean Corpuscular Volume 93 fL (80-100); Mean Platelet Volume 10.8 fL (9.1-12.4); NEUTROPHILS ABSOLUTE AUTO 4.06 K/mm3 (1.96-9.15); NEUTROPHILS PERCENT AUTO 65 % (41-73); Platelet Count 146 K/mm3 (150-400); RDW Coefficient Variation 18.5 % (11.7-14.2); RDW Standard Deviation 61.1 fL (35.1-46.3); Red Blood Cell Count 2.97 M/mm3 (3.80-5.20); White Blood Cell Count 6.29 K/mm3 (4.00-11.30)
[2023-10-25 05:54] LABS: Bun/Creatinine Ratio 4.2 (12.0-20.0); Calcium, Blood 8.6 mg/dL (8.5-10.1); Creatinine, Blood 3.1 mg/dL (0.40-1.00); Potassium, Blood 4.7 mmol/L (3.5-5.5)
[2023-10-25 06:52] LABS: BASOPHILS PERCENT MAN 0 % (0-2); EOSINOPHILS PERCENT MAN 0 % (0-6); LYMPHOCYTES ABSOLUTE MAN 1.06 K/mm3 (0.84-5.20); LYMPHOCYTES PERCENT MAN 17 % (21-46); MONOCYTES ABSOLUTE MAN 0.44 K/mm3 (0.16-1.47); MONOCYTES PERCENT MAN 7 % (4-13); NEUTROPHILS ABSOLUTE MAN 4.78 K/mm3 (1.96-9.15); SEG NEUTROPHILS PERCENT MAN 76 % (41-73); TOTAL CELLS COUNTED 100
[2023-10-25 07:24] VITALS: BP 135/58
--- NOTE | 2023-10-25 08:55 | NUR ---
CALLED DR LI CONSULT- RECIEVED VERBAL ORDERS, PLACED IN ORDER MANAGEMENT. ADDED PT TO ANAMARIA LIST OF PT. JEN WILL SEE THE PT LATER TODAY.
[2023-10-25] MEDS ORDERED: NS 1,000 ML IV SCH (10:15)
[2023-10-25 15:15] VITALS: BP 126/58
[2023-10-25] MEDS ORDERED: Darbepoetin Alfa In Albumn Sol 40 MCG/0.4 ML SC ONE (16:00)
[2023-10-25] MEDS ORDERED: Amoxicillin/Clavulanate K 875 MG Tab PO SCH (17:00)
[2023-10-25] MEDS ORDERED: Amoxicillin/Clavulanate K 500 MG Tab PO SCH (17:00)
--- NOTE | 2023-10-25 17:00 | NUR ---
CALLED DR VILLAVICENCIO- PT HAS BEEN VERY SLEEPY TODAY. SHE WAS NAPPING AFTER BREAKFAST WITH HER O2 IN PLACE. AROUND LUNCH TIME SHE WAS ROUSABLE BUT DID NOT WANT TO STAY AWAKE, PLACED HER BACK ONTO BIPAP WITH THE ASSISTANCE OF RT, MASK WAS CHANGED TO A SMALLER SIZE D/T AIR LEAKS. RENAL US WITH BLADDER WAS COMPLETED AND PT WOULD NOT WAKE FULLY TO VOID, RENAL US SHOWED 150ML AT THAT TIME. PT HAS NOT VOIDED AT ALL THJIS SHIFT AND IVF WAS STARTED BY DR LI AT 75ML/HR. BLADDER SCAN SHOWS 377ML AT THIS TIME. CALLED DR VILLAVICENCIO THE PT IS MINIMALLY ROUSABLE AT THIS TIME. IT SEEMS TO BE SOMETHING MORE THAN JUST TIRED. RECIEVED AN ORDER FOR VBG. CALLED RT STEFANO AND SHE IS AWARE OF THE ORDER. CALLED [facility] AND THEY ARE AWARE OF THE NEED FOR A VBG STAT.
[2023-10-25 17:27] LABS: PCO2 Venous 55 mmHg (38-42); pH Blood Venous 7.26 (7.34-7.37)
[2023-10-25 17:28] LABS: Base Excess Venous -2.8 mmol/L
[2023-10-25 19:46] VITALS: BP 126/52
--- NOTE | 2023-10-25 19:46 | NUR ---
SHIFT SUMMARY- PT HAS BEEN TIRED ALL SHIFT AND BECAME MORE LETHARGIC TOWARDS THE EVENING. BLOOD GAS SHOWS A CRITICAL PHWITH HIGH CO2. MD ACEVEDO. SPOKE TO NIGHT RT HERMINIO, HE IS AWARE OF THE RESULT AND THE DR REQUEST TO CHANGE THE SETTINGS, REPEAT VBG ORDERED AT 1999. NIGHT RN AWARE. BEDSIDE REPORT COMPLETED WITH NIGHT RN. PT ON 1L O2 VIA NC SATS GREATER THAN 90%, SHE IS EATING DINNER AT THE EOB SHE WOKE AFTER THE VBG AND ASKED TO PEE FOR THE FIRST TIME TODAY. NS RUNNING AT 75ML/HR IN THE CHARLETTE PG. RT PLACED THE PT BACK ON BIPAP AFTER REPORT THE PT REQUESTED TO GO BACK TO BED AT THAT TIME. PT IN BED, CALL LIGHT IN REACH NO S&S OF DISTRESS AT THIS TIME. MORE ROUSABLE AND ALERT AT THIS TIME.
[2023-10-25 20:22] LABS: Base Excess Venous -3.7 mmol/L; Bicarbonate Venous 21.3 mmol/L (24.0-30.0); PCO2 Venous 53 mmHg (38-42); pH Blood Venous 7.26 (7.34-7.37)
[2023-10-25] MEDS ORDERED: Gabapentin 300 MG Cap PO SCH (21:00)
[2023-10-25 21:20] LABS: Base Excess Venous -2.7 mmol/L; Bicarbonate Venous 22.2 mmol/L (24.0-30.0); PCO2 Venous 48.2 mmHg (38-42)
--- NOTE | 2023-10-26 04:09 | NUR ---
PT URINATED IN BSC BUT ALSO HAD A BOWEL MOVEMENT THAT CONTAMINATED URINE SAMPLE. COULD NOT START 24 HOUR URINE AT THIS TIME.
[2023-10-26 04:15] VITALS: BP 118/57
[2023-10-26 06:03] LABS: Base Excess Venous -2.9 mmol/L; Bicarbonate Venous 22.1 mmol/L (24.0-30.0); PCO2 Venous 47.9 mmHg (38-42)
[2023-10-26 06:10] LABS: BASOPHILS ABSOLUTE AUTO 0.02 K/mm3 (0.00-0.23); BASOPHILS PERCENT AUTO 0 % (0-2); EOSINOPHILS ABSOLUTE AUTO 0.15 K/mm3 (0.00-0.68); EOSINOPHILS PERCENT AUTO 3 % (0-6); Hematocrit 25.2 % (33.0-51.0); Hemoglobin 7.3 g/dL (11.5-16.0); IMMATURE GRAN ABSOLUTE AUTO 0.24 K/mm3 (0.00-0.10); IMMATURE GRAN PERCENT AUTO 5 % (0-1); LYMPHOCYTES ABSOLUTE AUTO 1.05 K/mm3 (0.84-5.20); LYMPHOCYTES PERCENT AUTO 20 % (21-46); MONOCYTES ABSOLUTE AUTO 0.38 K/mm3 (0.16-1.47); MONOCYTES PERCENT AUTO 7 % (4-13); Mean Corpuscular HGB 26.7 pg (26.0-34.0); Mean Corpuscular Volume 92 fL (80-100); Mean Platelet Volume 11.2 fL (9.1-12.4); NEUTROPHILS ABSOLUTE AUTO 3.49 K/mm3 (1.96-9.15); NEUTROPHILS PERCENT AUTO 66 % (41-73); Platelet Count 122 K/mm3 (150-400); RDW Coefficient Variation 18.6 % (11.7-14.2); RDW Standard Deviation 59.9 fL (35.1-46.3); Red Blood Cell Count 2.73 M/mm3 (3.80-5.20); White Blood Cell Count 5.33 K/mm3 (4.00-11.30)
--- NOTE | 2023-10-26 06:24 | NUR ---
24 HOUR URINE START 619. PT INCONTIENT WHILE ASLEEP, PUREWICK IN PLACE BUT OTHERWISE ABLE TO GET UP TO BSC
[2023-10-26 06:27] LABS: Albumin, Blood 2.4 g/dL (3.4-5.0); Anion Gap 10 mmol/L (3-11); Blood Urea Nitrogen 19 mg/dL (8-24); CO2, Blood 22 mmol/L (21-32); Calcium, Blood 8.4 mg/dL (8.5-10.1); Chloride, Blood 115 mmol/L (98-108); Creatinine, Blood 2.38 mg/dL (0.40-1.00); Glomerular Filtration Rate 22 (60-); Glucose, Blood 100 mg/dL (70-99); Phosphorus, Blood 3.7 mg/dL (2.5-4.9); Potassium, Blood 4.6 mmol/L (3.5-5.5); Sodium, Blood 142 mmol/L (136-145)
[2023-10-26] MEDS ORDERED: NS 1,000 ML IV SCH (06:50)
[2023-10-26 07:24] VITALS: BP 148/60
[2023-10-26] MEDS ORDERED: Allopurinol 100 MG Tab PO SCH (09:00)
[2023-10-26] MEDS ORDERED: Lactulose 20 GM/30 ML UDC PO SCH (09:00)
[2023-10-26 15:17] VITALS: BP 134/59
[2023-10-26 19:27] VITALS: BP 162/68
[2023-10-27 04:38] VITALS: BP 141/63
[2023-10-27 05:07] LABS: Hematocrit 25.4 % (33.0-51.0); Hemoglobin 7.8 g/dL (11.5-16.0)
[2023-10-27 05:17] LABS: PCO2 Arterial 50 mmHg (35-45); PO2 Arterial 88.7 mmHg (80-100); pH Blood Arterial 7.31 (7.35-7.45)
[2023-10-27 05:23] LABS: Albumin, Blood 2.5 g/dL (3.4-5.0); Anion Gap 10 mmol/L (3-11); Blood Urea Nitrogen 16 mg/dL (8-24); Bun/Creatinine Ratio 9.4 (12.0-20.0); CO2, Blood 23 mmol/L (21-32); Calcium, Blood 8.7 mg/dL (8.5-10.1); Chloride, Blood 117 mmol/L (98-108); Creatinine, Blood 1.71 mg/dL (0.40-1.00); Glomerular Filtration Rate 33 (60-); Glucose, Blood 96 mg/dL (70-99); Magnesium, Blood 1.4 mg/dL (1.6-2.4); Phosphorus, Blood 2.8 mg/dL (2.5-4.9); Potassium, Blood 4.6 mmol/L (3.5-5.5); Sodium, Blood 145 mmol/L (136-145)
--- NOTE | 2023-10-27 06:46 | NUR ---
SHIFT SUMMARY: PATIENT REPORTED HEADACHE AT HS. TYLENOL WAS GIVEN WITH GOOD EFFECT. PATIENT MAINTAINED SATS ABOVE 94% ON RA AND BIPAP DURING SLEEP. PATIENT USED BIPAPA DURING SLEEP. DR LI IS IN THIS MORNING AND ASKS THAT THE PATIENT FOLLOW UP AT HIS OFFICE ON FRIDAY AT 2:00.
[2023-10-27 07:56] VITALS: BP 156/67
[2023-10-27 08:23] LABS: Protein, Urine Quantitative 10.4 mg/dL (0.0-11.9)
[2023-10-27] MEDS ORDERED: Sodium Bicarbonate 650 MG Tab PO SCH (09:00)
[2023-10-27 16:12] VITALS: BP 172/74
--- NOTE | 2023-10-27 16:47 | NUR ---
VSS, A-Ox4, denies SOB, denies any pain, ambulates with SB assist and walker, on RA and BiPaP at night. Lung diminished with crackles in bases, heart regular, bowel sounds normative, incontinent of urine at times, on continous O2Sat >90% on RA during shift. Pt can make needs known, call velasco in hand, bed in lowest position.
[2023-10-27 19:53] VITALS: BP 143/70
[2023-10-28 04:19] VITALS: BP 159/73
[2023-10-28 05:36] LABS: PCO2 Arterial 45.8 mmHg (35-45); PO2 Arterial 69.4 mmHg (80-100); pH Blood Arterial 7.36 (7.35-7.45)
[2023-10-28 07:05] LABS: Hematocrit 26.8 % (33.0-51.0); Hemoglobin 7.9 g/dL (11.5-16.0)
[2023-10-28 07:22] LABS: Albumin, Blood 2.6 g/dL (3.4-5.0); Anion Gap 9 mmol/L (3-11); Blood Urea Nitrogen 14 mg/dL (8-24); Bun/Creatinine Ratio 10.4 (12.0-20.0); CO2, Blood 23 mmol/L (21-32); Calcium, Blood 8.8 mg/dL (8.5-10.1); Chloride, Blood 116 mmol/L (98-108); Creatinine, Blood 1.35 mg/dL (0.40-1.00); Glomerular Filtration Rate 43 (60-); Glucose, Blood 98 mg/dL (70-99); Magnesium, Blood 1.3 mg/dL (1.6-2.4); Phosphorus, Blood 2.6 mg/dL (2.5-4.9); Potassium, Blood 4.2 mmol/L (3.5-5.5); Sodium, Blood 144 mmol/L (136-145)
--- NOTE | 2023-10-28 07:23 | NUR ---
SHIFT SUMMARY: SLEEP STUDY WAS DONE WITH BIPAP AND NO 02. MINIMAL DESATURATION OBSERVED WHICH WAS NONSUSTAINING. SLEPT WELL THROUGH THE NIGHT. UP TO THE BSC WITH SBA.
[2023-10-28 07:25] VITALS: BP 153/84
[2023-10-28] MEDS ORDERED: Magnesium Sulf 2 GM/Water 50ML 50 ML IV ONE (08:25)
[2023-10-28] MEDS ORDERED: Magnesium Oxide 400 MG Tab PO SCH (09:00)
--- NOTE | 2023-10-28 09:00 | NUR ---
pt up in chair for breakfast, a/ox4, pleasant and cooperative with care, follows commands well, denies pain at this time, lungs are clear dim in bases, resp even and unlabored, on r/a, uses cpap at hs, no cough noted, hrr, power glide to sheyla site is clear and patent, btx4, abd flat soft nontender, voids without diff, skin c/w/d, maew, uses walker to ambulate, gait noted to be steady, tanya, call light in reach.
[2023-10-28 12:18] LABS: SARS-Cov-2 (COVID-19) PCR, MMC NEGATIVE (NEGATIVE)
--- NOTE | 2023-10-28 14:19 | NUR ---
pt has been discharged to snf, will be going to [facility] via wheelchair van. power glides x2 removed intact, report called to [facility] spoke with Samson. waiting on transport..
--- NOTE | 2023-10-28 14:42 | NUR ---
pt left via wheelchair for [facility] with all her belongings.
== END 2023-10-28 14:30 | DRG 720 ==
LOC: ER 23:53 → ERHOLD 23:54 → MEDS 23:54 → ERHOLD 23:54 → MEDS 10-16 12:27 → PCU 10-17 12:34 → MEDS 10-17 12:35 → PCU 10-17 20:34 → ICUE 10-18 19:15 → MEDS 10-22 14:05 → ENPENDDIS 10-28 12:39 → MEDS 10-28 14:30
PROVIDERS: Emergency Medicine; Family Medicine; Internal Medicine; Internal Medicine Nephrology; Student in an Organized Health Care Education/Training Program; ADMIT Family Medicine
PROC: 5A09357 Assistance with Respiratory Ventilation, Less than 24 Consecutive Hours, Continuous Positive Airway Pressure (ICD-10-PCS; principal; 2023-10-18)
PROC: 4A133R1 Monitoring of Arterial Saturation, Peripheral, Percutaneous Approach (ICD-10-PCS; 2023-10-28)
PROC: 3E03329 Introduction of Other Anti-infective into Peripheral Vein, Percutaneous Approach (ICD-10-PCS; 2023-10-28)
DX: A41.51 Sepsis due to Escherichia coli [E. coli] (principal); G93.41 Metabolic encephalopathy; J96.02 Acute respiratory failure with hypercapnia; K85.90 Acute pancreatitis without necrosis or infection, unspecified; J96.21 Acute and chronic respiratory failure with hypoxia; N39.0 Urinary tract infection, site not specified; N17.9 Acute kidney failure, unspecified; E87.0 Hyperosmolality and hypernatremia; E72.4 Disorders of ornithine metabolism; E87.4 Mixed disorder of acid-base balance; I50.32 Chronic diastolic (congestive) heart failure; Z68.41 Body mass index [BMI] 40.0-44.9, adult; R65.20 Severe sepsis without septic shock; E87.6 Hypokalemia; J44.9 Chronic obstructive pulmonary disease, unspecified; E83.39 Other disorders of phosphorus metabolism; E83.42 Hypomagnesemia; D50.9 Iron deficiency anemia, unspecified; E03.9 Hypothyroidism, unspecified; R54 Age-related physical debility; I11.0 Hypertensive heart disease with heart failure; F41.9 Anxiety disorder, unspecified; G62.9 Polyneuropathy, unspecified; F10.20 Alcohol dependence, uncomplicated; E78.5 Hyperlipidemia, unspecified; K70.10 Alcoholic hepatitis without ascites; G89.29 Other chronic pain; D69.6 Thrombocytopenia, unspecified; M54.9 Dorsalgia, unspecified; K80.20 Calculus of gallbladder without cholecystitis without obstruction; E66.01 Morbid (severe) obesity due to excess calories; Z90.49 Acquired absence of other specified parts of digestive tract; Z90.710 Acquired absence of both cervix and uterus; Z87.19 Personal history of other diseases of the digestive system; Z79.890 Hormone replacement therapy; Z79.899 Other long term (current) drug therapy; Z79.84 Long term (current) use of oral hypoglycemic drugs; Z88.2 Allergy status to sulfonamides; Z88.8 Allergy status to other drugs, medicaments and biological substances; Z91.040 Latex allergy status; Z87.891 Personal history of nicotine dependence
CPT/HCPCS: 0241U; 36415; 36600; 71045; 71046; 71260; 74177; 76705; 76770; 80048; 80053; 80061; 80069; 81001; 82140; 82550; 82607; 82728; 82746; 82803; 83540; 83550; 83605; 83690; 83735; 83880; 83930; 84156; 84300; 84443; 84484; 85014; 85018; 85025; 85027; 85610; 87040; 87077; 87086; 87186; 93005; 93010; 94640; 94660; 94664; 94762; 96361; 96365; 96365-59; 96366; 96367; 96372; 96372-59; 96375; 96376; 97110; 97162; 97165; 97530; 97530-CQ; 97535; 99285-25; A9270; C1751; G0378; J0360; J0696; J0881; J1630; J1644; J2060; J2270; J2405; J2916; J3010; J3475; J7030; J7040; J7050; J7060; J7120; Q9967; U0002

== ENCOUNTER 2023-11-10 20:11 | Emergency (ER) | payer MEDICARE, OTHER ==
[~2023-11-10] VITALS: Ht 154.9 cm; Wt 99.8 kg
[~2023-11-10 20:11] MED LIST changes: +ACAMPROSATE CA333 MG PO; +FUROSEMIDE20 MG PO; +MELA3 PO; +Potassium Chlo20 ME1 PO
[2023-11-10 20:13] VITALS: BP 153/84
[2023-11-10] MEDS ORDERED: Ondansetron HCl 2 MG / ML 2ML Vial IV PRN (20:20)
[2023-11-10 20:35] LABS: BASOPHILS ABSOLUTE AUTO 0.03 K/mm3 (0.00-0.23); BASOPHILS PERCENT AUTO 1 % (0-2); EOSINOPHILS ABSOLUTE AUTO 0.06 K/mm3 (0.00-0.68); EOSINOPHILS PERCENT AUTO 1 % (0-6); Hematocrit 32.3 % (33.0-51.0); Hemoglobin 9.8 g/dL (11.5-16.0); IMMATURE GRAN ABSOLUTE AUTO 0.02 K/mm3 (0.00-0.10); IMMATURE GRAN PERCENT AUTO 0 % (0-1); LYMPHOCYTES ABSOLUTE AUTO 0.65 K/mm3 (0.84-5.20); LYMPHOCYTES PERCENT AUTO 11 % (21-46); MONOCYTES ABSOLUTE AUTO 0.51 K/mm3 (0.16-1.47); MONOCYTES PERCENT AUTO 9 % (4-13); Mean Corpuscular HGB 27.9 pg (26.0-34.0); Mean Corpuscular HGB Conc 30.3 g/dL (31.5-36.5); Mean Corpuscular Volume 92 fL (80-100); Mean Platelet Volume 12.5 fL (9.1-12.4); NEUTROPHILS ABSOLUTE AUTO 4.48 K/mm3 (1.96-9.15); NEUTROPHILS PERCENT AUTO 78 % (41-73); Platelet Count 108 K/mm3 (150-400); RDW Coefficient Variation 19.8 % (11.7-14.2); RDW Standard Deviation 66.5 fL (35.1-46.3); Red Blood Cell Count 3.51 M/mm3 (3.80-5.20); White Blood Cell Count 5.75 K/mm3 (4.00-11.30)
[2023-11-10 21:05] LABS: Albumin, Blood 3.3 g/dL (3.4-5.0); Albumin/Globulin Ratio 0.9 (0.8-1.8); Bilirubin, Total 0.7 mg/dL (0.1-1.0); Bun/Creatinine Ratio 12.5 (12.0-20.0); Calcium, Blood 8.3 mg/dL (8.5-10.1); Creatinine, Blood 1.04 mg/dL (0.40-1.00); Globulin, Blood 3.5 g/dL (2.2-4.0); Potassium, Blood 3.2 mmol/L (3.5-5.5); Total Protein, Blood 6.8 g/dL (6.4-8.2)
[2023-11-10] MEDS ORDERED: Potassium Chl 20MEQ/Water100ML 100 ML IV SCH (23:30)
[2023-11-10] MEDS ORDERED: Acetaminophen 500 MG Tab PO ONE (23:30)
[2023-11-11] MEDS ORDERED: NS 1,000 ML IV SCH
== END 2023-11-11 03:47 | disposition home or self-care (01) ==
LOC: ER 20:11
PROVIDERS: Physician Assistant
DX: K43.9 Ventral hernia without obstruction or gangrene (principal); E86.0 Dehydration; E87.6 Hypokalemia; R11.0 Nausea; K57.90 Diverticulosis of intestine, part unspecified, without perforation or abscess without bleeding; K74.60 Unspecified cirrhosis of liver; K80.20 Calculus of gallbladder without cholecystitis without obstruction; I11.0 Hypertensive heart disease with heart failure; I50.30 Unspecified diastolic (congestive) heart failure; J44.9 Chronic obstructive pulmonary disease, unspecified; E03.9 Hypothyroidism, unspecified; E11.9 Type 2 diabetes mellitus without complications; M10.9 Gout, unspecified; E78.1 Pure hyperglyceridemia; F41.9 Anxiety disorder, unspecified; F32.A Depression, unspecified; Z87.891 Personal history of nicotine dependence; Z91.040 Latex allergy status; Z88.8 Allergy status to other drugs, medicaments and biological substances; Z88.2 Allergy status to sulfonamides; Z88.1 Allergy status to other antibiotic agents; Z79.890 Hormone replacement therapy; Z79.899 Other long term (current) drug therapy
CPT/HCPCS: 74177; 80053; 83690; 84484; 85025; 96365-59; 96366; 96375; 99285-25; A9270; J2405; J3480; J7030; Q9967

== ENCOUNTER 2023-12-12 15:47 | Emergency (ER) | payer MEDICARE, OTHER ==
[~2023-12-12] VITALS: Ht 152.4 cm; Wt 99.8 kg
[2023-12-12 15:47] VITALS: BP 155/74
[2023-12-12] MEDS ORDERED: LORazepam 1 MG Tab PO ONE (16:15)
[2023-12-12 16:40] LABS: BASOPHILS ABSOLUTE AUTO 0.07 K/mm3 (0.00-0.23); BASOPHILS PERCENT AUTO 1 % (0-2); EOSINOPHILS ABSOLUTE AUTO 0.11 K/mm3 (0.00-0.68); EOSINOPHILS PERCENT AUTO 2 % (0-6); Hematocrit 32.5 % (33.0-51.0); Hemoglobin 10.1 g/dL (11.5-16.0); IMMATURE GRAN ABSOLUTE AUTO 0.03 K/mm3 (0.00-0.10); IMMATURE GRAN PERCENT AUTO 1 % (0-1); LYMPHOCYTES PERCENT AUTO 29 % (21-46); MONOCYTES ABSOLUTE AUTO 0.59 K/mm3 (0.16-1.47); MONOCYTES PERCENT AUTO 9 % (4-13); Mean Corpuscular HGB 29.4 pg (26.0-34.0); Mean Corpuscular HGB Conc 31.1 g/dL (31.5-36.5); Mean Corpuscular Volume 95 fL (80-100); Mean Platelet Volume 11.1 fL (9.1-12.4); NEUTROPHILS ABSOLUTE AUTO 3.67 K/mm3 (1.96-9.15); NEUTROPHILS PERCENT AUTO 59 % (41-73); Platelet Count 170 K/mm3 (150-400); RDW Coefficient Variation 17.9 % (11.7-14.2); RDW Standard Deviation 62.5 fL (35.1-46.3); Red Blood Cell Count 3.43 M/mm3 (3.80-5.20); White Blood Cell Count 6.27 K/mm3 (4.00-11.30)
[2023-12-12 17:00] LABS: Albumin, Blood 3.3 g/dL (3.4-5.0); Bilirubin, Total 0.3 mg/dL (0.1-1.0); Bun/Creatinine Ratio 7.8 (12.0-20.0); Calcium, Blood 8.1 mg/dL (8.5-10.1); Creatinine, Blood 0.77 mg/dL (0.40-1.00); Globulin, Blood 3.3 g/dL (2.2-4.0); Potassium, Blood 2.5 mmol/L (3.5-5.5); Total Protein, Blood 6.6 g/dL (6.4-8.2)
[2023-12-12] MEDS ORDERED: K-Dur20 MEQ PO (17:18)
[2023-12-12] MEDS ORDERED: Potassium Chloride 20 MEQ TabCR PO ONE (17:20)
== END 2023-12-12 17:45 | disposition home or self-care (01) ==
LOC: ER 15:47
PROVIDERS: Emergency Medicine
DX: F41.9 Anxiety disorder, unspecified (principal); E87.6 Hypokalemia; F10.20 Alcohol dependence, uncomplicated; Y90.8 Blood alcohol level of 240 mg/100 ml or more; E03.9 Hypothyroidism, unspecified; E11.9 Type 2 diabetes mellitus without complications; M10.9 Gout, unspecified; J44.9 Chronic obstructive pulmonary disease, unspecified; I11.0 Hypertensive heart disease with heart failure; I50.30 Unspecified diastolic (congestive) heart failure; Z88.8 Allergy status to other drugs, medicaments and biological substances; Z88.2 Allergy status to sulfonamides; Z88.1 Allergy status to other antibiotic agents; Z91.040 Latex allergy status; Z79.899 Other long term (current) drug therapy; Z87.891 Personal history of nicotine dependence
CPT/HCPCS: 80053; 80320; 82140; 85025; 99285; A9270

== ENCOUNTER 2024-02-01 17:45 | Inpatient (IN) | payer MEDICARE, OTHER ==
[~2024-02-01] VITALS: Ht 154.9 cm; Wt 116.5 kg
[~2024-02-01 17:45] MED LIST changes: +K-Dur20 MEQ PO
[2024-02-01 18:09] LABS: Bicarbonate Venous 25.7 mmol/L (24.0-30.0); PCO2 Venous 66.5 mmHg (38-42); PO2 Venous 78.3 mmHg (38-42); pH Blood Venous 7.26 (7.34-7.37)
[2024-02-01 18:20] LABS: BASOPHILS ABSOLUTE AUTO 0.08 K/mm3 (0.00-0.23); BASOPHILS PERCENT AUTO 1 % (0-2); EOSINOPHILS ABSOLUTE AUTO 0.08 K/mm3 (0.00-0.68); EOSINOPHILS PERCENT AUTO 1 % (0-6); Hematocrit 36.4 % (33.0-51.0); Hemoglobin 11.4 g/dL (11.5-16.0); IMMATURE GRAN ABSOLUTE AUTO 0.12 K/mm3 (0.00-0.10); IMMATURE GRAN PERCENT AUTO 1 % (0-1); LYMPHOCYTES ABSOLUTE AUTO 1.83 K/mm3 (0.84-5.20); LYMPHOCYTES PERCENT AUTO 17 % (21-46); MONOCYTES ABSOLUTE AUTO 1.27 K/mm3 (0.16-1.47); MONOCYTES PERCENT AUTO 12 % (4-13); Mean Corpuscular HGB 32.6 pg (26.0-34.0); Mean Corpuscular HGB Conc 31.3 g/dL (31.5-36.5); Mean Corpuscular Volume 104 fL (80-100); Mean Platelet Volume 10.9 fL (9.1-12.4); NEUTROPHILS ABSOLUTE AUTO 7.34 K/mm3 (1.96-9.15); NEUTROPHILS PERCENT AUTO 69 % (41-73); NRBC ABSOLUTE 0.03 K/mm3 (0.00-0.02); NRBC Auto 0.3 /100 WBC (0.0-0.2); Platelet Count 169 K/mm3 (150-400); RDW Coefficient Variation 14.9 % (11.7-14.2); RDW Standard Deviation 57.1 fL (35.1-46.3); White Blood Cell Count 10.72 K/mm3 (4.00-11.30)
[2024-02-01 18:32] LABS: Ethanol (Alcohol), Blood, Med <3 mg/dL
[2024-02-01 18:41] LABS: International Normalized Ratio 1.25; Prothrombin Time Results 13.2 Sec (9.7-11.5)
[2024-02-01 18:43] LABS: Alanine Aminotransfer (ALT/SGP 22 U/L (12-78); Albumin, Blood 3.2 g/dL (3.4-5.0); Alk Phos 65 U/L (50-136); Anion Gap 14 mmol/L (3-11); Aspartate Aminotrans (AST/SGOT 56 U/L (12-37); Bilirubin, Total 0.6 mg/dL (0.1-1.0); Blood Urea Nitrogen 14 mg/dL (8-24); Bun/Creatinine Ratio 3.3 (12.0-20.0); CO2, Blood 29 mmol/L (21-32); Calcium, Blood 5.4 mg/dL (8.5-10.1); Chloride, Blood 102 mmol/L (98-108); Creatinine, Blood 4.22 mg/dL (0.40-1.00); Globulin, Blood 3.2 g/dL (2.2-4.0); Glomerular Filtration Rate 11 (60-); Glucose, Blood 119 mg/dL (70-99); Magnesium, Blood 0.7 mg/dL (1.6-2.4); Potassium, Blood 2.8 mmol/L (3.5-5.5); Sodium, Blood 142 mmol/L (136-145); Total Protein, Blood 6.4 g/dL (6.4-8.2)
[2024-02-01] MEDS ORDERED: NS 1,000 ML IV SCH (18:50)
[2024-02-01] MEDS ORDERED: CALCIUM GLUC IN NACL, ISO-OSM 100 ML IV ONE (18:50)
[2024-02-01] MEDS ORDERED: Magnesium Sulf 2 GM/Water 50ML 50 ML IV ONE ×2 (18:50→22:20)
[2024-02-01 19:30] LABS: Source, Urine Clean Catch
[2024-02-01 19:33] LABS: Appearance, Urine Hazy (Clear); Blood, Urine Neg (Neg); Color, Urine Amber (P-Yellow); Glucose Qualitative, Urine Neg (Neg); Ketones, Urine 1+ (Neg); Leukocyte Esterase, Urine 2+ (Neg); Nitrite, Urine Neg (Neg); Protein, Urine 2+ (Neg); Specific Gravity, Urine 1.025 (1.003-1.022); Urobilinogen, Urine 1+ (Normal)
[2024-02-01 19:49] LABS: Bacteria Many /hpf; Bilirubin, Urine 1+ (Neg); Red Blood Cells, Urine 0-2 /hpf (0-2); Squamous Epithelial Cells Many /hpf (Few); White Blood Cells, Urine 25-50 /hpf (0-5)
[2024-02-01 19:50] LABS: Amorphous Light (0-Heavy); Mucus Light (0-Heavy); Transitional Epithelial Cells Few /hpf (0-Rare)
[2024-02-01 20:14] LABS: Influenza A, PCR NEGATIVE (NEGATIVE); Influenza B, PCR NEGATIVE (NEGATIVE); Resp Syncytial Virus, PCR NEGATIVE (NEGATIVE); SARS-Cov-2 (COVID-19) PCR, MMC NEGATIVE (NEGATIVE)
[2024-02-01] MEDS ORDERED: Lactated Ringer's 1,000 ML IV SCH (22:00)
[2024-02-01] MEDS ORDERED: FLU VACC TS2024-25(6MOS UP)/PF 45 MCG/0.5 ML SYRINGE IM ONE (22:00)
[2024-02-01] MEDS ORDERED: Calcium Chloride 10% 2,000 MG in NS 100 ML IV ONE (22:20)
[2024-02-01] MEDS ORDERED: Potassium Chl 20MEQ/Water100ML 100 ML IV SCH (22:20)
[2024-02-01] MEDS ORDERED: Lactated Ringer's 1,000 ML IV ONE (23:25)
[2024-02-02 00:07] LABS: Base Excess Venous -0.1 mmol/L; Bicarbonate Venous 23.6 mmol/L (24.0-30.0); PCO2 Venous 57.5 mmHg (38-42); pH Blood Venous 7.28 (7.34-7.37)
[2024-02-02] MEDS ORDERED: LORazepam 2 MG/ML 1ML Injection IV PRN (00:50)
[2024-02-02 01:33] LABS: Phosphorus, Blood 8.2 mg/dL (2.5-4.9)
[2024-02-02 03:41] LABS: Base Excess Venous -1.7 mmol/L; PCO2 Venous 70.4 mmHg (38-42)
[2024-02-02 03:43] LABS: pH Blood Venous 7.19 (7.34-7.37)
[2024-02-02 05:15] LABS: Base Excess Venous -1.2 mmol/L; Bicarbonate Venous 23.2 mmol/L (24.0-30.0); PCO2 Venous 47.3 mmHg (38-42); pH Blood Venous 7.33 (7.34-7.37)
[2024-02-02 05:34] LABS: BASOPHILS ABSOLUTE AUTO 0.07 K/mm3 (0.00-0.23); BASOPHILS PERCENT AUTO 1 % (0-2); EOSINOPHILS ABSOLUTE AUTO 0.04 K/mm3 (0.00-0.68); EOSINOPHILS PERCENT AUTO 0 % (0-6); Hematocrit 36.7 % (33.0-51.0); Hemoglobin 11.4 g/dL (11.5-16.0); IMMATURE GRAN ABSOLUTE AUTO 0.14 K/mm3 (0.00-0.10); IMMATURE GRAN PERCENT AUTO 2 % (0-1); LYMPHOCYTES ABSOLUTE AUTO 1.19 K/mm3 (0.84-5.20); LYMPHOCYTES PERCENT AUTO 12 % (21-46); MONOCYTES ABSOLUTE AUTO 1.21 K/mm3 (0.16-1.47); MONOCYTES PERCENT AUTO 13 % (4-13); Mean Corpuscular HGB 32.7 pg (26.0-34.0); Mean Corpuscular HGB Conc 31.1 g/dL (31.5-36.5); Mean Corpuscular Volume 105 fL (80-100); NEUTROPHILS ABSOLUTE AUTO 6.99 K/mm3 (1.96-9.15); NEUTROPHILS PERCENT AUTO 73 % (41-73); NRBC ABSOLUTE 0.02 K/mm3 (0.00-0.02); NRBC Auto 0.2 /100 WBC (0.0-0.2); Platelet Count 163 K/mm3 (150-400); RDW Coefficient Variation 14.9 % (11.7-14.2); RDW Standard Deviation 57.9 fL (35.1-46.3); Red Blood Cell Count 3.49 M/mm3 (3.80-5.20); White Blood Cell Count 9.64 K/mm3 (4.00-11.30)
[2024-02-02] MEDS ORDERED: Albuterol 2.5 MG/3 ML VIAL INH PRN (05:35)
[2024-02-02 05:55] LABS: Magnesium, Blood 2.3 mg/dL (1.6-2.4)
[2024-02-02] MEDS ORDERED: Levothyroxine Sodium 0.1 MG Tab PO SCH (06:00)
[2024-02-02 06:01] LABS: Albumin/Globulin Ratio 0.9 (0.8-1.8); Bilirubin, Total 0.7 mg/dL (0.1-1.0); Bun/Creatinine Ratio 3.7 (12.0-20.0); Creatinine, Blood 4.56 mg/dL (0.40-1.00); Globulin, Blood 3.2 g/dL (2.2-4.0); Potassium, Blood 3.9 mmol/L (3.5-5.5); Total Protein, Blood 6.2 g/dL (6.4-8.2)
[2024-02-02 06:15] LABS: Calcium, Blood 7.8 mg/dL (8.5-10.1)
[2024-02-02] MEDS ORDERED: CALCIUM GLUC IN NACL, ISO-OSM 100 ML IV ONE (08:55)
[2024-02-02] MEDS ORDERED: Heparin Sodium 5000 Units/ML 1ML MDV SC SCH (09:00)
[2024-02-02] MEDS ORDERED: Acetaminophen 325 MG TABLET PO PRN (09:05)
[2024-02-02 10:34] VITALS: BP 144/54
[2024-02-02 11:15] VITALS: BP 152/74
[2024-02-02] MEDS ORDERED: Seroquel Xr50 MG PO (13:11)
[2024-02-02] MEDS ORDERED: NS 1,000 ML IV SCH (15:55)
[2024-02-02 15:59] VITALS: BP 147/61
--- NOTE | 2024-02-02 16:32 | NUR ---
SHIFT SUMMARY PT REMAINS ALERT AND ORIENTED TO SELF AND SITUATION. PT CONFUSED ON WHERE SHE IS AND NEEDS REORIENTATION AT TIMES. PT WAS ON BIPAP MOST OF SHIFT AND HAS BEEN OFF SINCE 1430. PT NOW ON 2L NC WITH SATS>90%. PT COMPLAINS OF PAIN WITH REPOSITIONING, BUT DENIES ANY PAIN AT REST. PT HAD PAYNE CATHETER PLACED IN THE ED PRIOR TO ARRIVAL TO FLOOR. PAYNE IS PATENT AND DRAINING CLEAR YELLOW URINE. PT REPOSITIONED Q2H. DR. LI IN THIS AFTERNOON WITH CHANGES TO FLUIDS AND NEW LAB ORDERS. ORDERS TO CALL LAB RESULTS TO JEN THIS EVENING. WILL REPORT OFF TO ONCOMING ESTELLA
[2024-02-02 16:41] LABS: Anion Gap 14 mmol/L (3-11); Blood Urea Nitrogen 20 mg/dL (8-24); Bun/Creatinine Ratio 5.2 (12.0-20.0); CO2, Blood 27 mmol/L (21-32); Chloride, Blood 103 mmol/L (98-108); Creatinine, Blood 3.83 mg/dL (0.40-1.00); Glomerular Filtration Rate 12 (60-); Glucose, Blood 126 mg/dL (70-99); Phosphorus, Blood 6.9 mg/dL (2.5-4.9); Potassium, Blood 3.5 mmol/L (3.5-5.5); Sodium, Blood 140 mmol/L (136-145); Thyroid Stimulating Hormone 0.367 uIU/mL (0.360-4.800)
--- NOTE | 2024-02-02 17:14 | NUR ---
UPDATE CALLED LI WITH RENAL PANEL RESULTS. ORDERS TO CONTINUE NS AT 75MLS/HR
[2024-02-02 20:13] VITALS: BP 140/70
--- NOTE | 2024-02-02 20:36 | NUR ---
ASSUMED CARE PT IS ALERT AND ORIENTED X3; FORGETFUL AT TIMES. ANXIOUS ABOUT FALLING OUT OF BED EVEN W/ REASSURANCE THAT SIDE RAILS ARE UP AND BED ALARM IS ON, "WHAT IF I TRY TO GET OUT OF BED" "WHAT IF I JUMP OUT OF BED". PT EDUCATED ON IMPORTANCE OF USING CALL LIGHT FOR ANY NEEDS AND TO NOT ATTEMPT TO GET OUT OF BED. CIWA APPEARS <4. PT STATES THAT SHE HAS NOT HAD ANYTHING TO DRINK SINCE BEFORE HER DETOX. REPOSITIONED AND TYLENOL GIVEN D/T PAIN IN KNEE'S; PT RESTING QUIETLY AT THIS TIME. INFILTRATION OF LEFT FOREARM IV NOTED W/ BLISTER AND DARK PURPLE AREA AROUND SITE. PHARMACY NOTIFIED W/ CALCIUM GLUCONATE, ATIVAN, POTASSIUM, AND MAGNESIUM NOTED TO HAVE BEEN GIVEN WITHIN PAST 24 HOURS; PHARMACY SUSPECTS CALCIUM GLUCONATE IS CULPRIT AND ORDERS TO APPLY WARM COMPRESS TO SITE AND NOTIFY IF SITE GETS ANY WORSE.
--- NOTE | 2024-02-02 20:59 | NUR ---
UPDATE PHARMACY CALLED BACK W/ REQUEST TO HAVE RESIDENT COME LAY EYES ON SITE. DR ZHU NOTIFIED AND STATED HE WILL COME BY IN ONE HOUR TO LAY EYES ON SITE. PHARMACY AWARE AND ORDERS TO KEEP WARM COMPRESS ON SITE. AREA OF REDNESS/BLISTER DEMARCATED W/ KARENA.
--- NOTE | 2024-02-02 21:35 | NUR ---
UPDATE DR ZHU BY TO OBSERVE SITE. TREATING SITE W/ MEDICATION PER PHARMACY RECOMMENDATION.
[2024-02-02] MEDS ORDERED: SODIUM THIOSULFATE IV ONE (21:40)
[2024-02-02] MEDS ORDERED: NS IV ONE (21:40)
[2024-02-02] MEDS ORDERED: Hyaluronidase 150 UNIT/ML Vial XX ONE (23:30)
[2024-02-02 23:39] VITALS: BP 129/59
--- NOTE | 2024-02-03 00:54 | NUR ---
UPDATE DR PATEL NOTIFIED OF SITE W/ ORDERS TO ALTERNATE WARM/COLD COMPRESS AND MONITOR SITE. PT REFUSING TO HAVE COLD/WARM COMPRESS ON SITE.
[2024-02-03 03:21] VITALS: BP 120/65
[2024-02-03 04:32] LABS: Base Excess Venous -0.5 mmol/L; Bicarbonate Venous 23.1 mmol/L (24.0-30.0); PCO2 Venous 55.5 mmHg (38-42); pH Blood Venous 7.28 (7.34-7.37)
[2024-02-03 04:43] LABS: Hematocrit 35.8 % (33.0-51.0); Hemoglobin 11.4 g/dL (11.5-16.0)
[2024-02-03 04:58] LABS: Magnesium, Blood 1.8 mg/dL (1.6-2.4)
[2024-02-03 04:59] LABS: Albumin, Blood 2.8 g/dL (3.4-5.0); Albumin/Globulin Ratio 0.8 (0.8-1.8); Bilirubin, Total 0.8 mg/dL (0.1-1.0); Bun/Creatinine Ratio 7.2 (12.0-20.0); Calcium, Blood 7.3 mg/dL (8.5-10.1); Creatinine, Blood 3.46 mg/dL (0.40-1.00); Globulin, Blood 3.4 g/dL (2.2-4.0); Phosphorus, Blood 6.4 mg/dL (2.5-4.9); Potassium, Blood 3.1 mmol/L (3.5-5.5); Total Protein, Blood 6.2 g/dL (6.4-8.2)
[2024-02-03] MEDS ORDERED: Potassium Chloride 10 Meq Tablet SA PO ONE (05:20)
[2024-02-03] MEDS ORDERED: Potassium Chl 20MEQ/Water100ML 100 ML IV ONE (05:20)
[2024-02-03] MEDS ORDERED: LORazepam 2 MG/ML 1ML Injection IV ONE (06:15)
[2024-02-03 07:26] VITALS: BP 136/74
--- NOTE | 2024-02-03 07:33 | NUR ---
SHIFT SUMMARY PT IS A&O X2-3; ANXIOUS AND INTERMITTENTLY CONFUSED/FORGETFUL. PT ON BIPAP FOR MOST OF NIGHT, REPEATEDLY ATTEMPTS TO PULL BIPAP OFF; ATIVAN USED PER ORDER FOR ANXIETY. EDUCATION GIVEN ON IMPORTANCE OF WEARING BIPAP. PT COMPLAINS OF CHIN PAIN AND LEFT KNEE PAIN. DENIES CP. EXTRAVASATION/INFILTRATION SITE REMAINS UNCHANGED.
[2024-02-03] MEDS ORDERED: Ondansetron HCl 2 MG / ML 2ML Vial IV PRN (08:00)
[2024-02-03 08:33] LABS: Base Excess Venous -1.5 mmol/L; Bicarbonate Venous 22.9 mmol/L (24.0-30.0); PCO2 Venous 51.5 mmHg (38-42)
[2024-02-03] MEDS ORDERED: Thiamine HCl 100 MG Tab PO SCH (09:00)
[2024-02-03] MEDS ORDERED: AmLODIPine Besylate 5 MG Tab PO SCH (09:00)
[2024-02-03] MEDS ORDERED: Multivitamins 1 Tab PO SCH (09:00)
[2024-02-03 11:27] VITALS: BP 115/56
--- NOTE | 2024-02-03 11:49 | NUR ---
AM NOTE: ASSUMED CARE OF PT THIS AM AFTER RECEIVING REPORT FROM ESTELLA RODNEY AT APPROX 0715. PT NAPS OFTEN, IS WILLING TO WEAR BIPAP WHILE SLEEPING, OTHERWISE WILL PULL MASK OFF AND WILL WEAR NC, O2 SATS >92%. PT ORIENTED TO SELF, CONFUSED RE: DATE/LOCATION/SITUATION. PT CALLS OUT FOR STAFF WHEN SHE WANTS HELP DESPITE FREQUENT REORIENTATION TO CALL LIGHT USE. SINUS RHYTHM ON MONITOR W/RATE 80s. INDWELLING PAYNE CATHETER PATENT, DRAINING YELLOW COLORED URINE TO GRAVITY. PT W/LOOSE STOOL, x2 THIS SHIFT, SAMPLE COLLECTED AND SENT TO LAB. DISCOLORATION AND BLISTER W/SMALL AMOUNT OF WEEPING TO LFA, INFILTRATED IV PER REPORT, LIMB ELEVATED AND ICE APPLIED PT TOLERATES. REPOSITIONING Q2H IN PLACE. FLUIDS INFUSING PER ORDERS.
[2024-02-03 15:36] LABS: Adenovirus F 40/41 Not Detected (NOT DETECT); Astrovirus Not Detected (NOT DETECT); Campylobacter Sp Not Detected (NOT DETECT); Cryptosporidium Not Detected (NOT DETECT); Cyclospora Cayetanensis Not Detected (NOT DETECT); E. Coli O157 Not Detected (NOT DETECT); Entamoeba Histolytica Not Detected (NOT DETECT); Enteroaggregative E. coli-EAEC Not Detected (NOT DETECT); Enteropathogenic E. coli-EPEC Not Detected (NOT DETECT); Enterotoxigenic E. coli-ETEC Not Detected (NOT DETECT); Giardia Lamblia Not Detected (NOT DETECT); Plesiomonas Shigelloides Not Detected (NOT DETECT); Salmonella Sp Not Detected (NOT DETECT); Shiga Toxin-prod E. coli-STEC Not Detected (NOT DETECT); Shigella/Enteroin E. coli-EIEC Not Detected (NOT DETECT); Vibrio Cholerae Not Detected (NOT DETECT); Vibrio Sp Not Detected (NOT DETECT); Yersinia Enterocolitica Not Detected (NOT DETECT)
[2024-02-03 15:37] LABS: Norovirus GI/GII Not Detected (NOT DETECT); Rotavirus A Not Detected (NOT DETECT); Sapovirus Not Detected (NOT DETECT)
[2024-02-03 15:53] VITALS: BP 145/66
--- NOTE | 2024-02-03 18:53 | NUR ---
SHIFT SUMMARY: NO SIGNIFICANT CHANGES T/O THE AFTERNOON. PT CONTINUED TO YELL OUT T/O THE SHIFT AND WAS AT TIMES, DIFFICULT TO UNDERSTAND BUT WAS ABLE TO ENGAGE W/STAFF. ABLE TO FEED SELF MEALS W/ENCOURAGEMENT AND SUPERVISION. AT BEDSIDE T/O AFTERNOON, UPDATE PROVIDED, QUESTIONS ADDRESSED. ATTEMPTED TO GET PT OOB THIS AFTERNOON TO RECLINER, REFUSED EVEN W/MUCH ENOCOURAGEMENT. VS REMAINED STABLE W/NO S/S OF ACUTE DISTRESS. BEDSIDE REPORT PROVIDED TO AMBROCIO RN.
[2024-02-03] MEDS ORDERED: BusPIRone HCl 10 MG Tab PO PRN (19:00)
--- NOTE | 2024-02-03 19:34 | NUR ---
ASSUMED CARE PT IS A&O X3; INITIALLY STATED SHE WAS IN [facility] IN [place], BUT CORRECTED TO [facility] IN [place], STATED 2023, AND THAT SHE IS HERE D/T FALL AT HOME. PT INTERMITTENTLY CONFUSED/FORGETFUL, BUT EASILY REORIENTABLE AT THIS TIME. BUSPAR GIVEN D/T PT C/O ANXIETY AND BIPAP PLACED ON WHILE PT RESTS.
[2024-02-03 19:51] VITALS: BP 125/51
[2024-02-03] MEDS ORDERED: OxyCODONE HCL 5 MG TAB PO PRN (21:30)
[2024-02-03 22:28] LABS: Base Excess Venous -1.3 mmol/L; PCO2 Venous 47.7 mmHg (38-42); pH Blood Venous 7.32 (7.34-7.37)
[2024-02-03 23:27] VITALS: BP 131/60
--- NOTE | 2024-02-03 23:29 | NUR ---
UPDATE EXTRAVASATION/INFILTRATION SITE REMAINS UNCHANGED FROM PREVIOUS SHIFT LAST NIGHT.
[2024-02-04 00:41] LABS: VITAMIN D,1,25-DIHYDROXY 20.1 pg/mL (19.9-79.3)
[2024-02-04] MEDS ORDERED: FentaNYL Citrate 50 MCG/ML 2 ML Injection IV PRN (01:15)
[2024-02-04 03:40] VITALS: BP 139/64
[2024-02-04 04:32] LABS: Hematocrit 31.5 % (33.0-51.0); Hemoglobin 10.3 g/dL (11.5-16.0)
[2024-02-04 05:01] LABS: Albumin, Blood 2.6 g/dL (3.4-5.0); Albumin/Globulin Ratio 0.8 (0.8-1.8); Bilirubin, Total 0.6 mg/dL (0.1-1.0); Bun/Creatinine Ratio 14.5 (12.0-20.0); Calcium, Blood 7.3 mg/dL (8.5-10.1); Globulin, Blood 3.3 g/dL (2.2-4.0); Magnesium, Blood 1.7 mg/dL (1.6-2.4); Potassium, Blood 3.2 mmol/L (3.5-5.5); Total Protein, Blood 5.9 g/dL (6.4-8.2)
[2024-02-04] MEDS ORDERED: CALCIUM GLUC IN NACL, ISO-OSM 50 ML IV ONE (05:45)
--- NOTE | 2024-02-04 05:50 | NUR ---
SHIFT SUMMARY PT A&O X3-4; WORE BIPAP FOR MOST OF NIGHT. FREQUENTLY UP T/O NIGHT D/T ANXIETY AND PAIN; TREATING W/ REPOSITIONING, EMAR, AND THERAPEUTIC COMMUNICATION. TREATING PER EMAR/REPOSITIONING. RESTING QUIETLY AT THIS TIME ON 2LNC AFTER REQUESTING BREAK FROM BIPAP. INFILTRATION/EXTRAVASATION SITE REMAINS UNCHANGED. VSS.
[2024-02-04] MEDS ORDERED: LORazepam 2 MG/ML 1ML Injection IV PRN (06:05)
[2024-02-04 07:26] VITALS: BP 154/69
--- NOTE | 2024-02-04 07:50 | NUR ---
Bedside shift report from ESTELLA Newman. The pt is anxious, yelling out, possibly forgetful of explanations given to her as she repeatedly asks the same questions. Vital signs are stable, she is wide awake and reports generalized pain "all over" . STates wants to go home. Appears to have very limited mobility. Campbell catheter was clamped for bladder training with view to d/c before discharge.
[2024-02-04] MEDS ORDERED: Potassium Chloride 10 Meq Tablet SA PO SCH ×2 (08:00→12:00)
[2024-02-04] MEDS ORDERED: Cholecalciferol 1000 Unit Tablet (=25MCG) PO SCH (09:00)
[2024-02-04] MEDS ORDERED: Calcium Carbonate 500 MG Tab Chew PO SCH (09:00)
[2024-02-04 11:20] VITALS: BP 170/71
--- NOTE | 2024-02-04 11:24 | NUR ---
Pt yelling out repeatedly that she wants her medication, after she was told that RN was getting it for her. Dr. Marlo richard, also told pt not to yell to have her needs met. Pt is saying that she is having anxiety and can't help it when she yells out. She was given BUspar, per PRN orders.
--- NOTE | 2024-02-04 11:55 | NUR ---
AMBULATED to the bathroom for a second time this morning. Had second BM and voided post boogie removal. Pt c/o nausea upon returning to the bed, asked for emesis bag and was also given zofran for relief. B/P is high. Pt is sitting on side of bed now, states she feels poorly.
[2024-02-04 12:01] VITALS: BP 168/88
--- NOTE | 2024-02-04 14:09 | NUR ---
"Spiritual Care | nurse request Pt. is awake in bed when she welcomes ny visit. Pt. is in the middle of eating lunch. Spouse is at bedside. This airplane mechanic offered to return after the Pt. had finished her meal. Pt. affirmed that would be best, and welcomed this airplane mechanic to return later in the afternoon."
--- NOTE | 2024-02-04 15:06 | NUR ---
Spiritual Care follow up Pt. is alone when I come to bedside. Facilitated a life review and considered matters of her [facility], [place] mehnaz and heritage. Pt. verbalized that she has experienced anxiety even though she knows that God oz be a source of comfort. Pt. displayed evidence of somnolence, so this band salvager prayed for the Pt. Will remain available to the Pt.
[2024-02-04 15:10] VITALS: BP 149/69
[2024-02-04] MEDS ORDERED: CloNIDine 0.1 MG Tab PO PRN (15:50)
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
[2024-02-04 20:35] VITALS: BP 121/59
[2024-02-04] MEDS ORDERED: Vivitrol380 MG IM (21:16)
[2024-02-04] MEDS ORDERED: SUFLAVE POWDER1 EACH PO (21:16)
[2024-02-04] MEDS ORDERED: Temazepam 15 MG Cap PO ONE (23:35)
[2024-02-05 03:42] VITALS: BP 110/52
[2024-02-05 05:02] LABS: Base Excess Venous -1.2 mmol/L; Bicarbonate Venous 23.4 mmol/L (24.0-30.0); PCO2 Venous 43.7 mmHg (38-42); pH Blood Venous 7.36 (7.34-7.37)
[2024-02-05 05:12] LABS: BASOPHILS ABSOLUTE AUTO 0.04 K/mm3 (0.00-0.23); BASOPHILS PERCENT AUTO 1 % (0-2); EOSINOPHILS PERCENT AUTO 4 % (0-6); Hematocrit 31.2 % (33.0-51.0); IMMATURE GRAN ABSOLUTE AUTO 0.03 K/mm3 (0.00-0.10); IMMATURE GRAN PERCENT AUTO 1 % (0-1); LYMPHOCYTES ABSOLUTE AUTO 0.95 K/mm3 (0.84-5.20); LYMPHOCYTES PERCENT AUTO 18 % (21-46); MONOCYTES ABSOLUTE AUTO 0.53 K/mm3 (0.16-1.47); MONOCYTES PERCENT AUTO 10 % (4-13); Mean Corpuscular HGB 32.1 pg (26.0-34.0); Mean Corpuscular HGB Conc 32.1 g/dL (31.5-36.5); Mean Platelet Volume 10.8 fL (9.1-12.4); NEUTROPHILS ABSOLUTE AUTO 3.45 K/mm3 (1.96-9.15); NEUTROPHILS PERCENT AUTO 66 % (41-73); Platelet Count 188 K/mm3 (150-400); RDW Coefficient Variation 14.3 % (11.7-14.2); RDW Standard Deviation 51.2 fL (35.1-46.3); Red Blood Cell Count 3.12 M/mm3 (3.80-5.20)
[2024-02-05 05:30] LABS: Mean Corpuscular Volume 100 fL (80-100)
--- NOTE | 2024-02-05 05:36 | NUR ---
TRANSFERED FROM U AROUND 2200. AAO X2-3, REORIENTED TO PLACE AND SITUATION. PT IS LOUD, DEMANDING AND TREATENENING TO LEAVE. CALLED MANAGER MASSAGE DEPARTMENT FOR A ONE TIME DOSE, ORDER X1 15MG TEMAZEPAM. PT HAS NOT CALMED DOWN, ONLY SLEPT FOR MAYBE 1 HOUR INTERMINTENTLY. SHE IS STILL HOLLERING, BEING AGGRESSIVE AND DEMANDING UNREASONABLE REQUESTS. UP TO BSCX 1-2 ASSIST. PT MAY NEED A SITTER.
[2024-02-05 05:42] LABS: Albumin, Blood 2.5 g/dL (3.4-5.0); Albumin/Globulin Ratio 0.8 (0.8-1.8); Bilirubin, Total 0.4 mg/dL (0.1-1.0); Bun/Creatinine Ratio 21.9 (12.0-20.0); Calcium, Blood 8.3 mg/dL (8.5-10.1); Creatinine, Blood 1.14 mg/dL (0.40-1.00); Globulin, Blood 3.2 g/dL (2.2-4.0); Magnesium, Blood 1.3 mg/dL (1.6-2.4); Phosphorus, Blood 2.5 mg/dL (2.5-4.9); Potassium, Blood 3.8 mmol/L (3.5-5.5); Total Protein, Blood 5.7 g/dL (6.4-8.2)
[2024-02-05] MEDS ORDERED: CloNIDine 0.1 MG Tab PO PRN (06:25)
[2024-02-05] MEDS ORDERED: Magnesium Sulf 2 GM/Water 50ML 50 ML IV ONE (06:45)
[2024-02-05 07:18] VITALS: BP 153/78
[2024-02-05] MEDS ORDERED: CALCIUM GLUC IN NACL, ISO-OSM 100 ML IV ONE (08:00)
[2024-02-05] MEDS ORDERED: D5W-1/2NS 1,000 ML IV SCH (08:25)
[2024-02-05] MEDS ORDERED: Magnesium Oxide 400 MG Tab PO SCH (09:00)
--- NOTE | 2024-02-05 10:39 | NUR ---
CALLED AT [phone] AND [phone], NO ANSWER LEFT A MESSAGE, PATIENT BEING DISCHARGED
[2024-02-05] MEDS ORDERED: Vitamin D1000 UNI1 PO (10:41)
[2024-02-05] MEDS ORDERED: MULVITA PO (10:41)
[2024-02-05] MEDS ORDERED: B-1100 M1 PO (10:41)
[2024-02-05] MEDS ORDERED: VISBIOME 112.51 EACH PO (10:42)
[2024-02-05] MEDS ORDERED: SULTRIDS PO (10:42)
--- NOTE | 2024-02-05 14:17 | NUR ---
discharged home, discharge instructions given to patient and , both denied further questions
== END 2024-02-05 13:16 | disposition home health service (06) | DRG 682 ==
LOC: ER 17:45 → ERHOLD 21:56 → PCU 21:56 → MEDS 02-04 20:27
PROVIDERS: Emergency Medicine; Family Medicine; Hospitalist; Internal Medicine; Internal Medicine Nephrology; Student in an Organized Health Care Education/Training Program; ADMIT Student in an Organized Health Care Education/Training Program
PROC: 5A09457 Assistance with Respiratory Ventilation, 24-96 Consecutive Hours, Continuous Positive Airway Pressure (ICD-10-PCS; principal; 2024-02-02)
DX: N17.0 Acute kidney failure with tubular necrosis (principal); G92.8 Other toxic encephalopathy; J96.21 Acute and chronic respiratory failure with hypoxia; J96.22 Acute and chronic respiratory failure with hypercapnia; I50.33 Acute on chronic diastolic (congestive) heart failure; E87.4 Mixed disorder of acid-base balance; I13.0 Hypertensive heart and chronic kidney disease with heart failure and stage 1 through stage 4 chronic kidney disease, or unspecified chronic kidney disease; M62.82 Rhabdomyolysis; E87.0 Hyperosmolality and hypernatremia; E11.22 Type 2 diabetes mellitus with diabetic chronic kidney disease; N18.30 Chronic kidney disease, stage 3 unspecified; E86.9 Volume depletion, unspecified; E03.9 Hypothyroidism, unspecified; G47.33 Obstructive sleep apnea (adult) (pediatric); D63.1 Anemia in chronic kidney disease; E83.51 Hypocalcemia; E66.01 Morbid (severe) obesity due to excess calories; F41.9 Anxiety disorder, unspecified; Z99.81 Dependence on supplemental oxygen; F32.A Depression, unspecified; F10.20 Alcohol dependence, uncomplicated; M10.9 Gout, unspecified; E78.1 Pure hyperglyceridemia; J44.9 Chronic obstructive pulmonary disease, unspecified; E87.6 Hypokalemia; E83.42 Hypomagnesemia; E83.41 Hypermagnesemia; G62.9 Polyneuropathy, unspecified; G89.4 Chronic pain syndrome; K70.10 Alcoholic hepatitis without ascites; Z90.710 Acquired absence of both cervix and uterus; Z90.49 Acquired absence of other specified parts of digestive tract; Z79.890 Hormone replacement therapy; Z79.899 Other long term (current) drug therapy; Z91.040 Latex allergy status; Z88.2 Allergy status to sulfonamides; Z88.8 Allergy status to other drugs, medicaments and biological substances
CPT/HCPCS: 0241U; 36415; 51702; 70450; 71045; 72125; 76770; 80053; 80069; 80320; 81001; 82140; 82330; 82550; 82570; 82607; 82652; 82746; 82803; 82947; 83605; 83735; 83880; 83970; 84100; 84145; 84300; 84443; 85014; 85018; 85025; 85610; 87077; 87086; 87186; 87507; 93005; 93010; 94660; 94762; 96365; 96366; 96375; 97110; 97161; 97530; 99285-25; A9270; J0612; J1644; J2060; J2405; J3010; J3475; J3480; J7030; J7042; J7120

== ENCOUNTER 2024-02-06 07:56 | Emergency (ER) | payer MEDICARE, OTHER ==
[~2024-02-06] VITALS: Ht 152.4 cm; Wt 136.1 kg
[~2024-02-06 07:56] MED LIST changes: +SUFLAVE POWDER1 EACH PO; +SULTRIDS PO; +Vitamin D1000 UNI1 PO; +Vivitrol380 MG IM
[2024-02-06 07:58] VITALS: BP 205/95
[2024-02-06] MEDS ORDERED: TraMADol HCl 50 MG Tab PO ONE (08:50)
== END 2024-02-06 09:15 | disposition home or self-care (01) ==
LOC: ER 07:56
DX: F41.9 Anxiety disorder, unspecified (principal); R10.9 Unspecified abdominal pain; L98.499 Non-pressure chronic ulcer of skin of other sites with unspecified severity; I10 Essential (primary) hypertension; Z88.1 Allergy status to other antibiotic agents; Z91.040 Latex allergy status; Z88.8 Allergy status to other drugs, medicaments and biological substances; Z79.899 Other long term (current) drug therapy
CPT/HCPCS: 99283; A9270

== ENCOUNTER 2024-02-11 21:14 | Inpatient (IN) | payer MEDICARE, OTHER ==
[~2024-02-11] VITALS: Ht 154.9 cm; Wt 78.0 kg
[2024-02-11] MEDS ORDERED: Clindamycin 600mg in D5W 50 ML IV ONE (21:40)
[2024-02-11 22:17] LABS: BASOPHILS ABSOLUTE AUTO 0.03 K/mm3 (0.00-0.23); BASOPHILS PERCENT AUTO 0 % (0-2); EOSINOPHILS ABSOLUTE AUTO 0.39 K/mm3 (0.00-0.68); EOSINOPHILS PERCENT AUTO 6 % (0-6); Hematocrit 35.3 % (33.0-51.0); Hemoglobin 10.8 g/dL (11.5-16.0); IMMATURE GRAN PERCENT AUTO 2 % (0-1); LYMPHOCYTES ABSOLUTE AUTO 0.68 K/mm3 (0.84-5.20); LYMPHOCYTES PERCENT AUTO 10 % (21-46); MONOCYTES ABSOLUTE AUTO 0.58 K/mm3 (0.16-1.47); MONOCYTES PERCENT AUTO 9 % (4-13); Mean Corpuscular HGB 31.9 pg (26.0-34.0); Mean Corpuscular HGB Conc 30.6 g/dL (31.5-36.5); Mean Corpuscular Volume 104 fL (80-100); Mean Platelet Volume 11.1 fL (9.1-12.4); NEUTROPHILS ABSOLUTE AUTO 5.05 K/mm3 (1.96-9.15); NEUTROPHILS PERCENT AUTO 74 % (41-73); Platelet Count 172 K/mm3 (150-400); RDW Coefficient Variation 13.8 % (11.7-14.2); RDW Standard Deviation 52.5 fL (35.1-46.3); Red Blood Cell Count 3.39 M/mm3 (3.80-5.20); White Blood Cell Count 6.83 K/mm3 (4.00-11.30)
[2024-02-11 22:34] LABS: Source, Urine Clean Catch
[2024-02-11 22:37] LABS: Bilirubin, Urine Neg (Neg); Blood, Urine 1+ (Neg); Glucose Qualitative, Urine Neg (Neg); Ketones, Urine Neg (Neg); Leukocyte Esterase, Urine Neg (Neg); Nitrite, Urine Neg (Neg); Protein, Urine Neg (Neg); Specific Gravity, Urine 1.015 (1.003-1.022); Urobilinogen, Urine NORM (Normal)
[2024-02-11] MEDS ORDERED: LORazepam 2 MG/ML 1ML Injection IV ONE ×2 (22:45→23:35)
[2024-02-11 22:51] LABS: Albumin, Blood 3.2 g/dL (3.4-5.0); Albumin/Globulin Ratio 0.9 (0.8-1.8); Bilirubin, Total 0.3 mg/dL (0.1-1.0); Bun/Creatinine Ratio 10.6 (12.0-20.0); Calcium, Blood 7.8 mg/dL (8.5-10.1); Creatinine, Blood 1.42 mg/dL (0.40-1.00); Globulin, Blood 3.5 g/dL (2.2-4.0); Magnesium, Blood 0.9 mg/dL (1.6-2.4); Phosphorus, Blood 2.4 mg/dL (2.5-4.9); Potassium, Blood 4.4 mmol/L (3.5-5.5); Total Protein, Blood 6.7 g/dL (6.4-8.2)
[2024-02-11 22:54] LABS: Appearance, Urine Clear (Clear); Color, Urine Yellow (P-Yellow)
[2024-02-11 22:55] LABS: Bacteria Few /hpf; Red Blood Cells, Urine 0-2 /hpf (0-2); Squamous Epithelial Cells Few /hpf (Few); White Blood Cells, Urine 0-2 /hpf (0-5)
[2024-02-11] MEDS ORDERED: Magnesium Sulf 2 GM/Water 50ML 50 ML IV ONE (22:55)
[2024-02-11] MEDS ORDERED: Piperacillin/Tazobactam Sod 3.375 GM in NS 100 ML IV ONE (23:25)
[2024-02-11] MEDS ORDERED: NS 1,000 ML IV SCH (23:35)
[2024-02-12] VITALS (42 sets, daily range): BP systolic 68–133; BP diastolic 24–91
[2024-02-12 00:04] LABS: PCO2 Venous 75.7 mmHg (38-42)
[2024-02-12 00:05] LABS: Base Excess Venous 1.5 mmol/L; Bicarbonate Venous 24.5 mmol/L (24.0-30.0)
[2024-02-12] MEDS ORDERED: Lactated Ringer's 250 ML IV SCH (01:50)
[2024-02-12] MEDS ORDERED: FLU VACC TS2024-25(6MOS UP)/PF 45 MCG/0.5 ML SYRINGE IM ONE (01:50)
[2024-02-12] MEDS ORDERED: Ondansetron HCl 2 MG / ML 2ML Vial IV PRN (02:10)
[2024-02-12] MEDS ORDERED: LORazepam 2 MG/ML 1ML Injection IV PRN (02:10)
[2024-02-12] MEDS ORDERED: HydrALAZINE HCl 20 MG / ML 1ML Vial IV PRN (02:10)
[2024-02-12] MEDS ORDERED: Loperamide HCl 2 MG Cap PO PRN (02:10)
[2024-02-12 02:28] LABS: PCO2 Venous 35.4 mmHg (38-42); pH Blood Venous 7.44 (7.34-7.37)
[2024-02-12 02:29] LABS: Base Excess Venous -0.5 mmol/L; Bicarbonate Venous 24.3 mmol/L (24.0-30.0)
[2024-02-12 02:39] LABS: Source, Urine Foley catheter
[2024-02-12 02:41] LABS: Bilirubin, Urine Neg (Neg); Blood, Urine 1+ (Neg); Glucose Qualitative, Urine Neg (Neg); Ketones, Urine Neg (Neg); Leukocyte Esterase, Urine Neg (Neg); Nitrite, Urine Neg (Neg); Protein, Urine 2+ (Neg); Urobilinogen, Urine NORM (Normal)
[2024-02-12] MEDS ORDERED: dexmedeTOMIDine 100 ML IV SCH (02:45)
[2024-02-12 02:46] LABS: Appearance, Urine Clear (Clear); Color, Urine Yellow (P-Yellow)
[2024-02-12 02:48] LABS: Amorphous Light (0-Heavy); Bacteria Few /hpf; Hyaline Casts 0-2 /lpf (0-2); Red Blood Cells, Urine 0-2 /hpf (0-2); Squamous Epithelial Cells Mod /hpf (Few); White Blood Cells, Urine 0-2 /hpf (0-5)
[2024-02-12] MEDS ORDERED: Thiamine HCl 100 MG in NS 50 ML IV ONE (03:00)
[2024-02-12 03:15] LABS: BASOPHILS ABSOLUTE AUTO 0.02 K/mm3 (0.00-0.23); BASOPHILS PERCENT AUTO 0 % (0-2); EOSINOPHILS ABSOLUTE AUTO 0.47 K/mm3 (0.00-0.68); EOSINOPHILS PERCENT AUTO 7 % (0-6); Hemoglobin 10.1 g/dL (11.5-16.0); IMMATURE GRAN ABSOLUTE AUTO 0.08 K/mm3 (0.00-0.10); IMMATURE GRAN PERCENT AUTO 1 % (0-1); LYMPHOCYTES ABSOLUTE AUTO 0.67 K/mm3 (0.84-5.20); LYMPHOCYTES PERCENT AUTO 9 % (21-46); MONOCYTES ABSOLUTE AUTO 0.78 K/mm3 (0.16-1.47); MONOCYTES PERCENT AUTO 11 % (4-13); Mean Corpuscular HGB 32.1 pg (26.0-34.0); Mean Corpuscular HGB Conc 30.6 g/dL (31.5-36.5); Mean Corpuscular Volume 105 fL (80-100); NEUTROPHILS ABSOLUTE AUTO 5.14 K/mm3 (1.96-9.15); NEUTROPHILS PERCENT AUTO 72 % (41-73); Platelet Count 173 K/mm3 (150-400); RDW Coefficient Variation 13.9 % (11.7-14.2); RDW Standard Deviation 53.5 fL (35.1-46.3); Red Blood Cell Count 3.15 M/mm3 (3.80-5.20); White Blood Cell Count 7.16 K/mm3 (4.00-11.30)
[2024-02-12 03:22] LABS: pH Blood Venous 7.34 (7.34-7.37)
[2024-02-12 03:23] LABS: Base Excess Venous -0.2 mmol/L; Bicarbonate Venous 23.8 mmol/L (24.0-30.0); PCO2 Venous 47.6 mmHg (38-42)
[2024-02-12] MEDS ORDERED: Folic Acid 1 MG in NS 50 ML IV SCH (03:30)
--- NOTE | 2024-02-12 03:32 | NUR ---
ER ADMIT TO ICU 6: PT ARRIVED TO THE UNIT SHORTLY AFTER 0230; ADMITTED WITH RESP FAILURE WITH HYPERCAPNIA. PT ARRIVED RESPONSIVE TO PAIN STIMULI, LETHARGIC, DOES NOT OPEN EYE OR FOLLOW DIRECTIONS AT THIS TIME. PT ON AVAPS WITH EPAP 7-12, RATE-15 AND A 5L O2 BLEED IN; PT SPO2 94<, RR 18-20 AND LUNGS DIM T/O. SR ON MONITOR WITH HR 80'S, SBP 100-110. ABD OBESE, TENDER WHEN PALPATED IN R. SIDE, HYPOACTIVE BT; PT NPO AT THSI TIME DUE TO ASPIRATION RISK. TEMP PAYNE PATENT AND DRAINING TO GRAVITY. RAC PATENT AND SALINE LOCKED, PG TO ANAND THAT IS PATENT AND SALINE LOCKED. BED LOWERED, CALL LIGHT IN REACH.
[2024-02-12 03:39] LABS: Albumin, Blood 2.8 g/dL (3.4-5.0); Albumin/Globulin Ratio 0.8 (0.8-1.8); Bilirubin, Total 0.3 mg/dL (0.1-1.0); Bun/Creatinine Ratio 10.1 (12.0-20.0); Calcium, Blood 7.7 mg/dL (8.5-10.1); Creatinine, Blood 1.59 mg/dL (0.40-1.00); Globulin, Blood 3.3 g/dL (2.2-4.0); Potassium, Blood 4.5 mmol/L (3.5-5.5); Total Protein, Blood 6.1 g/dL (6.4-8.2)
[2024-02-12] MEDS ORDERED: Albuterol HFA200 ACT/6.7 GM INH INH PRN (03:55)
[2024-02-12] MEDS ORDERED: NS 250 ML IV ONE (04:35)
[2024-02-12] MEDS ORDERED: Magnesium Sulf 2 GM/Water 50ML 50 ML IV ONE (04:45)
[2024-02-12] MEDS ORDERED: CefTRIAXone Sodium 2,000 MG in NS 100 ML IV SCH (05:30)
--- NOTE | 2024-02-12 06:22 | NUR ---
SHIFT SUMMARY: NO ACUTE CHANGES SINCE ARRIVAL; VSS THROUGHOUT THE SHIFT. PT RECIEVING ANOTHER MAG REPLACEMENT. MAP IN THE 50'S, 250 ML BOLUS GIVEN WITH IMPROVEMENT. BIPAP SETTINGS REMAIN THE SAME. BED LOWERED, CALL LIGHT IN REACH.
[2024-02-12] MEDS ORDERED: Docusate Sodium 100 MG Cap PO SCH (09:00)
[2024-02-12] MEDS ORDERED: Enoxaparin 40 MG/0.4 ML SYR SC SCH (09:00)
[2024-02-12] MEDS ORDERED: Famotidine 10 MG/ML 2ML Vial IV SCH (09:00)
[2024-02-12] MEDS ORDERED: Lactobacil 2-S.Thermo-Bifido 1 1 Cap PO SCH (09:00)
[2024-02-12] MEDS ORDERED: FentaNYL Citrate 50 MCG/ML 2 ML Injection IV PRN (12:45)
[2024-02-12] MEDS ORDERED: Azithromycin 500 MG in NS 250 ML IV SCH (13:00)
[2024-02-12] MEDS ORDERED: OxyCODONE HCL 5 MG TAB PO PRN (14:05)
--- NOTE | 2024-02-12 18:29 | NUR ---
SUMMARY PT IS MORE AWAKE THE DAY GOES ON. A/O TO PERSON AND PLACE. BREAK FROM BIPAP ON 5L NC WHILE AWAKE. FOLLOWS COMMANDS. LLE WRAPPED WITH ABBEY BANDAGE AND VERY SENSITIVE TO ANY MOVEMENT. FENTANYL AND OXYCODONE GIVEN. OXYCODONE WORKS WELL. DR. CINTRON CAME THROUGH THE UNIT BUT DID NOT SEE PT YET, HE HAS ALREADY SPOKEN WITH DR. BETTS WHO WILL PROBABLY TAKE OVER THE CONSULT. TOLERATING WATER AND FOOD. NO SIGN OF DISTRESS.
--- NOTE | 2024-02-12 20:36 | NUR ---
TOOK REPORT FROM ICU 06 ESTELLA PRADO FOR PT COMING TO PCU 04.
--- NOTE | 2024-02-12 21:09 | NUR ---
PT ARRIVED ON UNIT FORM ICU @ 2049 WITH ALL BELONGINGS AND BIPAP.
--- NOTE | 2024-02-12 21:10 | NUR ---
TRANSFER NOTE PT TRANSFERED AT START OF SHIFT TO PCU 4. PHYSICAL TRANSFER HAPPENED AT 2049. AT TIME, PT ALERT AND ORIENTED TO PERSON, DATE BUT CONFUSED OTHERWISE. PT IS COOPERATIVE. PT IN NORMAL SINUS RHYTHYM WITH STABLE TO SOFT BP. PT ON 5L NC WITH 97% SAT, SOON BE BE PLACED BACK ON BIPAP. PT DOENS'T LIKE BIPAP BUT REPORTEDLY HANDLES IT WELL WHEN SLEEPING. NO CHEST PAIN/PRESSURE, SOB, AB PAIN. PT REPORTS BEING COLD AND EXPERIENCING MODERATE TO SEVERE PAIN IN LEFT LEG, WHICH SHOWEED DISPLACED LATERAL MALLEOLUS ON XRAY AND AN ORTHO CONSULT IS PENDING. ANY SMAL MOVEMENT IS PAINFUL. PT HAD BM TODAY. TEMP PAYNE IN PLACE DRAINING YELLOW URINE TO GRAVITY. PT SOMETIMES FORGETS SHE HAS PAYNE IN AND HOLD URINE. RIGHT POWERGLIDE IN PLACE, FLUSHING AND DRAWING BACK BLOOD. RIGHT PIV NO LONGER FLUSHING. REPORT GIVEN TO JAHAIRA IN PCU AND PT TRANSFERRED.
[2024-02-12] MEDS ORDERED: NS 250 ML IV PRN (23:10)
[2024-02-13 00:49] VITALS: BP 143/62
[2024-02-13 04:08] LABS: Calcium, Blood 7.7 mg/dL (8.5-10.1); Creatinine, Blood 1.42 mg/dL (0.40-1.00); Potassium, Blood 4.3 mmol/L (3.5-5.5)
[2024-02-13 04:35] VITALS: BP 120/58
--- NOTE | 2024-02-13 05:17 | NUR ---
SHIFT SUMMARY NOC PT A/O X 2. FORGETFUL AND PLEASANTLY CONFUSED AND CALLS OUT FREQUENTLY. VSS. PT WAS TRANSFER FROM ICU 06 AT BEGINNING OF SHIFT. PT ADMIT FOR ACHRF (SEPSIS), AMS, HYPOTENSION, AND GLF WITH L FIBULA FX THAT HAS DRESSING IN PLACE, AND LFA NECROSIS. LLE FX PAIN BEING MANAGED PER EMAR. PT ON CONTINOUS CARDIAC MONITORING 80'S. HAS PAYNE IN PLACE DRAINING TO GRAVITY. ON O2 5L/NC, AND USING BIPAP FOR SLEEP. POWERGLIDE IN ANAND. PT HAS ORTHOPEDIC CONSULT WITH DR BETTS SCHEDULED FOR TODAY FOR L FIBULA FX. PT SCORED CIWA 5. PT CURRENTLY RESTING WITH BED ALARM ON, BED IN LOWEST POSITION, AND CALL LIGHT WITHIN REACH.
[2024-02-13 07:26] VITALS: BP 127/50
[2024-02-13] MEDS ORDERED: Azithromycin 250 MG Tab PO SCH (09:00)
[2024-02-13 15:12] VITALS: BP 108/85
--- NOTE | 2024-02-13 17:49 | NUR ---
SHIFT SUMMARY PT ORIENTED TO SELF, SITUATION. UNABLE TO CORRECTLY SAY DATE/PLACE. CALLS OUT, "NURSE" INSTEAD OF USING CALL LIGHT. SP02>90% ON 4L NC. CPAP W/ 4L BLEED IN AT NOC. DESATS TO MID 70'S WHILE SLEEPING W/O CPAP. C/O OF PAIN. MEDICATED PER EMAR X2. PAYNE CATHETER DRAINING TO GRAVITY. ORTHO IN ROOM TO ASSESS, UNWRAPPED RLE TO ASSESS. REWRAPPED W/ ABBEY WRAP/CURRENT SPLINT. IN ROOM THIS AFTERNOON. CARE MANAGEMENT IN ROOM. PT EVAL ORDERED FOR DISCHARGE PLANNING. CALL LIGHT IN REACH.
[2024-02-13 19:49] VITALS: BP 123/59
[2024-02-14] VITALS: BP 117/53
[2024-02-14 04:14] VITALS: BP 137/59
[2024-02-14 04:50] LABS: Bun/Creatinine Ratio 10.9 (12.0-20.0); Calcium, Blood 8.5 mg/dL (8.5-10.1); Creatinine, Blood 1.19 mg/dL (0.40-1.00); Potassium, Blood 3.9 mmol/L (3.5-5.5)
[2024-02-14] MEDS ORDERED: Famotidine 20 MG Tab PO SCH (06:00)
--- NOTE | 2024-02-14 06:11 | NUR ---
SHIFT SUMMARY ASSUMED CARE OF PT at 1900. PT A&O4 BUT CONFUSED/FORGETFUL AT TIMES AND ABLE TO EXPRESS SELF APPROPRIATELY WHEN NOT YELLING FOR THE NURSE. PT UNINTERESTED IN EDUCATION ON SITTING UP IN BED AND ATTEMPTING TO DO THINGS FOR SELF, I.E. GRAB A CUP OF WATER OR REMOVE BLANKETS FROM LEGS; PT CONTINUES TO CALL AND ASK STAFF TO COMPLETE BASIC TASKS FOR HER. OVERNIGHT PT REMOVED CPAP SEVERAL TIMES, ONCE BREAKING THE MASK; TOLD PT HER O2 SATS DROP TO 70S BUT PT STILL REFUSES TO USE BIPAP/CPAP MACHINE TO MAINITAIN SATURATION. EDUCATION GIVEN, PT REFUSED. BED IN LOWEST POSITION AND CALL LIGHT WITHIN REACH.
[2024-02-14 07:18] VITALS: BP 134/60
[2024-02-14] MEDS ORDERED: Lactulose 20 GM/30 ML UDC PO SCH (08:45)
[2024-02-14] MEDS ORDERED: Multivitamins 1 Tab PO SCH (09:00)
[2024-02-14] MEDS ORDERED: Gabapentin 300 MG Cap PO SCH (09:00)
[2024-02-14] MEDS ORDERED: Thiamine HCl 100 MG Tab PO SCH (09:00)
[2024-02-14] MEDS ORDERED: Folic Acid 1 MG TAB PO SCH (09:00)
[2024-02-14] MEDS ORDERED: Naltrexone HCl 50 MG Tab PO SCH (09:00)
[2024-02-14] MEDS ORDERED: Simethicone 80 MG Chew PO SCH (09:00)
[2024-02-14] MEDS ORDERED: BusPIRone HCl 10 MG Tab PO SCH (09:00)
[2024-02-14] MEDS ORDERED: Furosemide 20 MG Tab PO SCH (09:00)
[2024-02-14] MEDS ORDERED: Allopurinol 100 MG Tab PO SCH (09:00)
[2024-02-14] MEDS ORDERED: QUEtiapine Fumarate 50 MG TAB PO SCH (09:00)
[2024-02-14] MEDS ORDERED: Cholecalciferol 1000 Unit Tablet (=25MCG) PO SCH (09:00)
--- NOTE | 2024-02-14 16:00 | NUR ---
UPDATE PT REMAINS ALERT AND ORIENTED, BUT FORGETFUL AT TIMES. PT CALLING OUT FOR FAMILY MEMBERS THAT ARE NOT PRESENT, BUT IS EASILY REORIENTED. BP STABLE. O2 SATS REMAIN ABOVE 90% ON 4L NC. PT HAS DENIED PAIN THIS AFTERNOON. PAYNE PATENT AND DRAINING. PT HAD MULTIPLE BM THIS SHIFT USING BED ABERNATHY. PT REPOSITIONED Q2H, BUT ABLE TO OTM CONSULTANT HERSELF IN THE BED. STATUS CHANGED TO MEDICAL AND BED ASSIGNMENT PROVIDED. REPORT GIVEN TO FRANK SORIA AND PT TAKEN UP VIA BED
--- NOTE | 2024-02-14 17:40 | NUR ---
SHIFT SUMMARY PATIENT WAS TRANSFERRED FROM PCU. WOUNDS DOCUMENTED PRIOR IN CHART. PATIENT A/O X4. ON 2 LITERS NC, PULSE OX IN PLACE. GIVEN FENTANYL FOR PAIN WITH GOOD RELIEF. PAYNE IN PLACE DRAINING TO GRAVITY. PUSHING CALL LIGHT MULTIPLE TIMES BACK TO BACK FOR NON EMERGENT, NON ESSENTIAL NEEDS. BOUNDRIES SET WITH THIS PAITENT AND WAS INFORMED OF ROUNDING SCHEDULE. YELLING OUT IN OROSCO AFTER BOUNDRIES WERE SET.
[2024-02-14 19:28] VITALS: BP 128/56
[2024-02-14] MEDS ORDERED: Acetaminophen 325 MG TABLET PO PRN (22:15)
[2024-02-15 05:53] VITALS: BP 138/66
[2024-02-15] MEDS ORDERED: Levothyroxine Sodium 0.1 MG Tab PO SCH (06:00)
[2024-02-15 07:24] VITALS: BP 152/63
[2024-02-15 07:56] LABS: Bun/Creatinine Ratio 9.6 (12.0-20.0); Calcium, Blood 8.8 mg/dL (8.5-10.1); Creatinine, Blood 1.25 mg/dL (0.40-1.00); Potassium, Blood 3.8 mmol/L (3.5-5.5)
[2024-02-15 11:49] VITALS: BP 154/67
--- NOTE | 2024-02-15 11:50 | NUR ---
MEDICATED PER CIWA SCORE WITH ATIVAN IV. STARTED HALLUCINATING THIS AM, CONFUSED. GIVING VARIABLE ACCOUNTS OF HER LAST ALCOHOL USE, VARIABLE ACCOUNTS OF ILLICIT DRUG USE AND LAST USED. ON 1 LITER NC OXYGEN. VSS AT THIS TIME.
--- NOTE | 2024-02-15 12:59 | NUR ---
PHYSICIAN CONTACT CALLED DR CINTRON FOR REEVALUATION OF SURGICAL CANDIDACY AT DR GUERRA REQUEST. LEFT MESSAGE WITH ANSWERING SERVICE.
[2024-02-15 16:55] VITALS: BP 142/76
--- NOTE | 2024-02-15 17:07 | NUR ---
SHIFT SUMMARY PATIENT IN BED THIS SHIFT, NWB TO LEFT LEG PER DR CINTRON NOTES. PATIENT RECEIVED ATIVAN PER CIWA TODAY. EXPERIENCING HALLUCINATIONS MOST OF SHIFT. PAYNE INTACT, DRAINING TO GRAVITY. SPLINT TO L ANKLE IN PLACE, PALPABLE PULSE. PT DEFFERED TODAY, WAITING FOR DR CINTRON TO ROUND AGAIN. CALL LIGHT IN REACH, ABLE TO MAKE NEEDS KNOWN. YELLING INTO OROSCO SEVERAL TIMES THIS, PUSHING CALL LIGHT MULTIPLE TIMES FOR NON-ESSENTIAL WANTS. CARES ONGOING
[2024-02-15 20:28] VITALS: BP 156/85
[2024-02-16 04:29] VITALS: BP 135/79
--- NOTE | 2024-02-16 04:40 | NUR ---
SHIFT SUMMARY VERY CONFUSED DURING EVENING HOURS CALLING FOR AND OTHERS WHO WERE NOT PRESENT. FREQUENT CONTRADICTORY STATEMENTS AND REQUESTS. THOUGHT THE IV POLE WAS HER , DID NOT KNOW WHAT HER URINARY CATHETER WAS, VERY FORGETFUL, YELLING OUT OFTEN & CONTINUALLY CHANGING REQUESTS TO SOMETHING ELSE, REORIENTED TO PLACE,TIME AND SITUATION FREQ. VSS, NO RESP DISTRESS, PRN ACETAMINOPHEN GIVEN FOR LLE PAIN SCDs NOT WORN DUE TO LLE FX/PAIN, SOME BRUISING NOTED UNDER THE ABBEY WRAP @ANKLE AREA, WIGGLES TOES EASILY,CAP REFILL ADEQUATE, 1+ EDEMA CONT. LLE SPLINT & ABBEY WRAP INTACT. ONCE FELL ASLEEP SLEPT VERY WELL OVERNIGHT AND WORE BIPAP ALL NIGHT WITH O2 SATS IN MID 90s & HR, VSS, BED ALARM ON. PAYNE OUTPUT CL YELL & ADEQUATE VOLUMES. 60s-70s
[2024-02-16 06:47] LABS: Bun/Creatinine Ratio 10.2 (12.0-20.0); Calcium, Blood 9.2 mg/dL (8.5-10.1); Creatinine, Blood 1.27 mg/dL (0.40-1.00)
[2024-02-16 07:27] VITALS: BP 166/72
--- NOTE | 2024-02-16 07:30 | NUR ---
ASSUMED CARE: PT RESTING QUIETLY AT THIS TIME. BIPAP IN PLACE. CALL LIGHT IN REACH. NO ACUTE NEEDS OR CONCERNS AT PRESENT.
--- NOTE | 2024-02-16 09:48 | NUR ---
CALL TO DR ARRIAGA TO REPORT PT C/O MOUTH PAIN AND WHITE PATCHES ON TONGUE. DR TO CALL BACK
[2024-02-16] MEDS ORDERED: HYDROcodone 5-APAP 325 TAB PO PRN (10:10)
--- NOTE | 2024-02-16 11:16 | NUR ---
CALL TO DR ARRIAGA DUE TO PT C/O ANXIETY. PT HAS BEEN IN HOSPITAL 5 DAYS AND ONLY HAS IV ATIVAN. DR HUTCHINS ORDER PO ANXIETY MEDS.
[2024-02-16] MEDS ORDERED: HyDROXyzine HCl 10 MG Tab PO PRN (11:25)
[2024-02-16] MEDS ORDERED: Nystatin 100,000 Unit/ML Susp 5 ML UDC MT SCH (13:00)
--- NOTE | 2024-02-16 13:37 | NUR ---
CALLED AND LEFT A MESSAGE FOR DR COPE TO RECONSULT ON PT DUE TO HOSPITALIST NEEDING ORTHO INPUT.
--- NOTE | 2024-02-16 14:02 | NUR ---
DR COPE SPOKE WITH DR ARRIAGA AND INSTRUCTED FOR PT TO REMAIN NON-WEIGHT BEARING. CALL TO CARE MANAGEMENT TO START LOOKING FOR PLACEMENT.
[2024-02-16 16:39] VITALS: BP 144/76
--- NOTE | 2024-02-16 18:16 | NUR ---
SHIFT SUMMARY: DR CINTRON CAME TO SEE PT AND CHANGED OUT SPLINT. HE TOLD PT THAT THE PLAN IS TO SEE THEM OUTPT AND THAT SHE WILL GO TO REHAB IN THE MEANTIME. HE TOLD PT THAT HE WAS CONFIDENT SHE WOULD EVENTUALLY BE ABLE TO WALK AND BEAR WEIGHT BUT THIS KIND OF FRACTURE IS ONE SHE WOULD NOT HAVE BEEN ABLE TO BEAR WEIGHT ON IMMEDIATELY EVEN IF SHE HAD SURGERY. PT'S WAS ALSO MADE AWARE.
[2024-02-16 19:19] VITALS: BP 140/60
[2024-02-17 02:40] VITALS: BP 126/60
[2024-02-17] MEDS ORDERED: Potassium Phosphate Dibasic 30 MM in Dextrose 5% 500 ML IV ONE (06:30)
[2024-02-17 07:26] VITALS: BP 140/67
--- NOTE | 2024-02-17 07:46 | NUR ---
SHIFT SUMMARY RESTED WELL OVERNIGHT, RECEIVED PRN PAIN MEDICATION (NORCO) FOR C/O RT SHOULDER PAIN STATED IT WAS HER BURSITIS DENIED ANY PAIN IN HER LLE AT THAT TIME , LATER REQUESTED PRN PAIN MED FOR H/A AND ACETAMINOPHEN GIVEN, LATER C/O PAIN IN LLE AND "ALLOVER" & RECEIVED NORCO AGAIN. NEUROVASCULAR CHECKS TO LLE WDL. RLE SPLINT INTACT, NO HALLUCINATIONS , WAS ALERT AND ORIENTED X3 TO 4 ,LESS CONFUSION, STSTE SHE TALKS IN HER SLEEP ALOT WHICH IS MISTAKEN FOR CONFUSION SOMETIMES, WORE BIPAP MOST OF THE NIGHT, 02 SATS 92-97
[2024-02-17] MEDS ORDERED: Furosemide 20 MG Tab PO SCH (09:00)
[2024-02-17] MEDS ORDERED: Arginine/Glutamine/Calcium Hmb 1 Packet PO SCH (10:50)
[2024-02-17] MEDS ORDERED: Lidocaine 2% Viscous Soln 20 ML,Nystatin 100,000 Unit/ml Susp 20 ML,Mag Hydrox/Al Hydro... MT PRN (11:30)
[2024-02-17 15:37] VITALS: BP 151/76
--- NOTE | 2024-02-17 17:57 | NUR ---
PT ORIENTED TO SELF, PLACE, AND SITUATION. VSS, 2L 02 WHILE SLEEPING AND RA WHILE AWAKE, CONTINUOUS PULSE OX. PT WOKE UP FROM A NAP THIS AFTERNOON AND DID NOT REMEMBER THIS RN FROM [facility] THIS MORNING. WORKED WITH PT, NINI EASTON. PAIN MANAGED WITH PRN NORCO, EFFECTIVE. PT COMPLAINED OF PAINFUL TONGUE, RN CALLED GABI, OUR DENTAL HYGENIST WHO RECCOMENDED MAGIC MOUTHWASH. MD PUT IN ORDER, PT STATES EFFECTIVE FOR TONGUE PAIN. PAYNE IN PLACE, GOOD URINE OUTPUT. PT RESTING COMFORTABLY, CALL LIGHT IN REACH.
[2024-02-17 19:14] VITALS: BP 124/56
[2024-02-18 02:09] VITALS: BP 140/69
--- NOTE | 2024-02-18 06:51 | NUR ---
Shift Summary No acute changes. Pt medicated for pain per emar, reposisioned frequently for knee pain, given magic mouthwash PRN. Campbell catheter in place. Pt AOx4. No acute changes.
[2024-02-18 07:10] VITALS: BP 142/48
[2024-02-18 07:11] LABS: Bun/Creatinine Ratio 19.1 (12.0-20.0); Calcium, Blood 8.9 mg/dL (8.5-10.1); Creatinine, Blood 1.15 mg/dL (0.40-1.00); Potassium, Blood 4.9 mmol/L (3.5-5.5)
[2024-02-18 11:31] LABS: SARS-Cov-2 (COVID-19) PCR, MMC NEGATIVE (NEGATIVE)
[2024-02-18] MEDS ORDERED: JUVEN PACKET1 EAC3 PO (12:10)
[2024-02-18] MEDS ORDERED: Norco 5-325 Ta1 EACH PO (12:10)
[2024-02-18] MEDS ORDERED: Atarax10 MG PO (12:11)
[2024-02-18] MEDS ORDERED: GLYDO11 ML MT (12:13)
[2024-02-18] MEDS ORDERED: NYSTATIN100000 U10 MT (12:13)
[2024-02-18] MEDS ORDERED: PRED5EL MT (12:14)
[2024-02-18] MEDS ORDERED: LACT10SY PO (12:15)
[2024-02-18] MEDS ORDERED: FAMO20 PO (12:15)
--- NOTE | 2024-02-18 13:36 | NUR ---
REPORT GIVEN TO RN AT [facility]. HARD SCRIPT IN CHART
--- NOTE | 2024-02-18 13:37 | NUR ---
PER ELMER VELEZ WILL GO WITH PT.
--- NOTE | 2024-02-18 15:38 | NUR ---
PT DISCHARGED TO [facility] BY AMBULANCE. PAYNE IN PLACE. ALERT AND ORIENTED X4, AT BEDSIDE.
== END 2024-02-18 15:34 | DRG 871 ==
LOC: ER 21:14 → ICUE 02-12 01:46 → PCU 02-12 20:49 → MEDS 02-14 15:56
PROVIDERS: Emergency Medicine; Internal Medicine; Student in an Organized Health Care Education/Training Program; ADMIT Student in an Organized Health Care Education/Training Program
PROC: 5A09357 Assistance with Respiratory Ventilation, Less than 24 Consecutive Hours, Continuous Positive Airway Pressure (ICD-10-PCS; principal; 2024-02-12)
PROC: 3E03329 Introduction of Other Anti-infective into Peripheral Vein, Percutaneous Approach (ICD-10-PCS; 2024-02-12)
PROC: 0T9B70Z Drainage of Bladder with Drainage Device, Via Natural or Artificial Opening (ICD-10-PCS; 2024-02-12)
DX: A41.9 Sepsis, unspecified organism (principal); G92.8 Other toxic encephalopathy; J96.21 Acute and chronic respiratory failure with hypoxia; J96.22 Acute and chronic respiratory failure with hypercapnia; S22.089A Unspecified fracture of T11-T12 vertebra, initial encounter for closed fracture; F10.239 Alcohol dependence with withdrawal, unspecified; I50.32 Chronic diastolic (congestive) heart failure; E66.2 Morbid (severe) obesity with alveolar hypoventilation; I13.0 Hypertensive heart and chronic kidney disease with heart failure and stage 1 through stage 4 chronic kidney disease, or unspecified chronic kidney disease; N17.9 Acute kidney failure, unspecified; L03.113 Cellulitis of right upper limb; E03.9 Hypothyroidism, unspecified; J44.9 Chronic obstructive pulmonary disease, unspecified; E78.1 Pure hyperglyceridemia; M54.9 Dorsalgia, unspecified; K76.82 Hepatic encephalopathy; E11.22 Type 2 diabetes mellitus with diabetic chronic kidney disease; M10.9 Gout, unspecified; S82.832A Other fracture of upper and lower end of left fibula, initial encounter for closed fracture; S82.842A Displaced bimalleolar fracture of left lower leg, initial encounter for closed fracture; W18.30XA Fall on same level, unspecified, initial encounter; E83.41 Hypermagnesemia; N18.30 Chronic kidney disease, stage 3 unspecified; F41.9 Anxiety disorder, unspecified; F32.A Depression, unspecified; Z91.040 Latex allergy status; Z88.2 Allergy status to sulfonamides; Z88.8 Allergy status to other drugs, medicaments and biological substances; Z99.81 Dependence on supplemental oxygen; Z90.49 Acquired absence of other specified parts of digestive tract; Z87.19 Personal history of other diseases of the digestive system; Z90.710 Acquired absence of both cervix and uterus; Z79.890 Hormone replacement therapy; Z79.899 Other long term (current) drug therapy; Z91.199 Patient's noncompliance with other medical treatment and regimen due to unspecified reason
CPT/HCPCS: 29505; 36415; 51702; 70450; 71045; 72131; 73090; 73610; 80048; 80053; 80320; 81001; 82140; 82330; 82803; 83605; 83735; 84100; 84145; 85025; 87040; 93005; 93010; 94660; 94762; 96365-59; 96366-59; 96367-59; 96368; 96375-59; 96376-59; 97110; 97162; 97530; 99285-25; A9270; C1751; J0456; J0696; J1650; J2060; J2405; J2543; J3010; J3411; J3475; J7030; J7050; J7060; U0002

== ENCOUNTER 2024-03-24 01:21 | Day surgery (SDC) | payer MEDICARE, OTHER ==
[~2024-03-24 01:21] MED LIST changes: +Atarax10 MG PO; +GLYDO11 ML MT; +JUVEN PACKET1 EAC3 PO; +NYSTATIN100000 U10 MT; +Norco 5-325 Ta1 EACH PO; +PRED5EL MT
== END 2024-03-24 23:02 | disposition home or self-care (01) ==
LOC: WOUND 01:21
DX: S81.802D Unspecified open wound, left lower leg, subsequent encounter (principal); I25.10 Atherosclerotic heart disease of native coronary artery without angina pectoris; J44.9 Chronic obstructive pulmonary disease, unspecified; I11.0 Hypertensive heart disease with heart failure; I50.9 Heart failure, unspecified; E03.9 Hypothyroidism, unspecified; E11.40 Type 2 diabetes mellitus with diabetic neuropathy, unspecified; Z91.040 Latex allergy status; Z88.2 Allergy status to sulfonamides; Z88.8 Allergy status to other drugs, medicaments and biological substances; X58.XXXD Exposure to other specified factors, subsequent encounter; M79.602 Pain in left arm; S51.832S Puncture wound without foreign body of left forearm, sequela
CPT/HCPCS: 73090; G0463

== ENCOUNTER → 2024-04-01 | Day surgery (SDC) | payer MEDICARE, OTHER ==
[~2024-04-01] MED LIST changes: +Lidocaine HCl 4% Cream 5 GM ONE
== END ==
LOC: WOUND 04:46
DX: S51.832A Puncture wound without foreign body of left forearm, initial encounter (principal); E11.9 Type 2 diabetes mellitus without complications; I10 Essential (primary) hypertension; I25.10 Atherosclerotic heart disease of native coronary artery without angina pectoris; X58.XXXA Exposure to other specified factors, initial encounter
CPT/HCPCS: A6213; A9270

== ENCOUNTER 2024-04-07 03:14 | Day surgery (SDC) | payer MEDICARE, OTHER ==
[~2024-04-07 03:14] MED LIST changes: -Lidocaine HCl 4% Cream 5 GM ONE
[2024-04-07] MEDS ORDERED: Lidocaine HCl 4% Cream 5 GM ONE (13:15)
== END 2024-04-07 23:00 | disposition home or self-care (01) ==
LOC: WOUND 03:14
DX: S51.832A Puncture wound without foreign body of left forearm, initial encounter (principal); X58.XXXA Exposure to other specified factors, initial encounter
CPT/HCPCS: A6213; A9270

== ENCOUNTER 2024-04-14 06:14 | Day surgery (SDC) | payer MEDICARE, OTHER ==
[2024-04-14] MEDS ORDERED: Lidocaine HCl 4% Cream 5 GM ONE (12:42)
[2024-04-14] MEDS ORDERED: Silver Nitr/Potassium Nitrate 1 EA APPL ONE (13:10)
== END 2024-04-14 23:00 | disposition home or self-care (01) ==
LOC: WOUND 06:14
DX: S51.832A Puncture wound without foreign body of left forearm, initial encounter (principal); X58.XXXA Exposure to other specified factors, initial encounter; E11.9 Type 2 diabetes mellitus without complications; I10 Essential (primary) hypertension; I25.10 Atherosclerotic heart disease of native coronary artery without angina pectoris; Z86.19 Personal history of other infectious and parasitic diseases
CPT/HCPCS: A6213; A9270

== ENCOUNTER 2024-04-21 02:00 | Day surgery (SDC) | payer MEDICARE, OTHER ==
[2024-04-21] MEDS ORDERED: Lidocaine HCl 4% Cream 5 GM ONE (12:43)
== END 2024-04-21 23:00 | disposition home or self-care (01) ==
LOC: WOUND 02:00
DX: S51.802D Unspecified open wound of left forearm, subsequent encounter (principal); E11.9 Type 2 diabetes mellitus without complications; I10 Essential (primary) hypertension; I25.10 Atherosclerotic heart disease of native coronary artery without angina pectoris; X58.XXXD Exposure to other specified factors, subsequent encounter
CPT/HCPCS: A6213; A9270; G0463

== ENCOUNTER → 2024-05-04 | Day surgery (SDC) | payer MEDICARE, OTHER ==
[~2024-05-04] MED LIST changes: +Lidocaine HCl 4% Cream 5 GM ONE
== END ==
LOC: WOUND 08:00
DX: S51.832D Puncture wound without foreign body of left forearm, subsequent encounter (principal); X58.XXXD Exposure to other specified factors, subsequent encounter
CPT/HCPCS: A6213; A9270; G0463

== ENCOUNTER 2024-05-11 00:40 | Day surgery (SDC) | payer MEDICARE ==
[~2024-05-11 00:40] MED LIST changes: -Lidocaine HCl 4% Cream 5 GM ONE
== END 2024-05-11 23:00 | disposition home or self-care (01) ==
LOC: WOUND 00:40
DX: S51.832A Puncture wound without foreign body of left forearm, initial encounter (principal); I10 Essential (primary) hypertension; E11.9 Type 2 diabetes mellitus without complications; I25.10 Atherosclerotic heart disease of native coronary artery without angina pectoris
CPT/HCPCS: A6213; G0463

== ENCOUNTER 2024-05-18 03:38 | Day surgery (SDC) | payer MEDICARE | END 2024-05-18 23:14 | disposition home or self-care (01) | LOC: WOUND 03:38 | DX: S51.832A Puncture wound without foreign body of left forearm, initial encounter (principal); I10 Essential (primary) hypertension; E11.9 Type 2 diabetes mellitus without complications; I25.10 Atherosclerotic heart disease of native coronary artery without angina pectoris; W26.8XXA Contact with other sharp object(s), not elsewhere classified, initial encounter | CPT/HCPCS: A6213; G0463 ==

== ENCOUNTER 2024-05-25 03:57 | Day surgery (SDC) | payer MEDICARE | END 2024-05-25 23:10 | disposition home or self-care (01) | LOC: WOUND 03:57 | DX: Z09 Encounter for follow-up examination after completed treatment for conditions other than malignant neoplasm (principal); E11.9 Type 2 diabetes mellitus without complications; I10 Essential (primary) hypertension; I25.10 Atherosclerotic heart disease of native coronary artery without angina pectoris; M25.561 Pain in right knee; M17.0 Bilateral primary osteoarthritis of knee; Z87.828 Personal history of other (healed) physical injury and trauma | CPT/HCPCS: 73560-LT; 73562-RT; G0463 ==

== ENCOUNTER 2024-06-16 18:23 | Emergency (ER) | payer MEDICARE, OTHER ==
[~2024-06-16] VITALS: Ht 152.4 cm; Wt 136.1 kg
--- NOTE | 2024-06-16 18:41 | NUR ---
Met Pt. is the waiting room after having been triaged. Pt. is known to this store promoter from previous visits to the hospital. Pt. displayed evidence of anxiety as she was awaiting for an ED room. Pt. requested prayer. Prayed with Pt. Pt. also requested that this store promoter contact her by phone and request he come to the hospital. Phone call was made, Spouse is already en route.
[2024-06-16 18:48] VITALS: BP 111/60
[2024-06-16 19:37] LABS: BASOPHILS ABSOLUTE AUTO 0.07 K/mm3 (0.00-0.23); BASOPHILS PERCENT AUTO 1 % (0-2); EOSINOPHILS ABSOLUTE AUTO 0.03 K/mm3 (0.00-0.68); EOSINOPHILS PERCENT AUTO 0 % (0-6); Hematocrit 34.7 % (33.0-51.0); Hemoglobin 11.8 g/dL (11.5-16.0); IMMATURE GRAN ABSOLUTE AUTO 0.01 K/mm3 (0.00-0.10); IMMATURE GRAN PERCENT AUTO 0 % (0-1); LYMPHOCYTES PERCENT AUTO 36 % (21-46); MONOCYTES ABSOLUTE AUTO 0.58 K/mm3 (0.16-1.47); MONOCYTES PERCENT AUTO 8 % (4-13); Mean Corpuscular Volume 91 fL (80-100); Mean Platelet Volume 11.9 fL (9.1-12.4); NEUTROPHILS ABSOLUTE AUTO 3.89 K/mm3 (1.96-9.15); NEUTROPHILS PERCENT AUTO 54 % (41-73); Platelet Count 184 K/mm3 (150-400); RDW Coefficient Variation 14.5 % (11.7-14.2); RDW Standard Deviation 48.1 fL (35.1-46.3); Red Blood Cell Count 3.81 M/mm3 (3.80-5.20); White Blood Cell Count 7.18 K/mm3 (4.00-11.30)
[2024-06-16 20:02] LABS: Albumin, Blood 3.5 g/dL (3.4-5.0); Albumin/Globulin Ratio 1.2 (0.8-1.8); Bilirubin, Total 0.5 mg/dL (0.1-1.0); Bun/Creatinine Ratio 19.6 (12.0-20.0); Calcium, Blood 8.1 mg/dL (8.5-10.1); Creatinine, Blood 0.77 mg/dL (0.40-1.00); Globulin, Blood 2.9 g/dL (2.2-4.0); Potassium, Blood 2.5 mmol/L (3.5-5.5); Total Protein, Blood 6.4 g/dL (6.4-8.2)
== END 2024-06-16 19:15 | disposition left against medical advice (07) ==
LOC: ER 18:23
PROVIDERS: Emergency Medicine
DX: R07.9 Chest pain, unspecified (principal); Z53.21 Procedure and treatment not carried out due to patient leaving prior to being seen by health care provider
CPT/HCPCS: 80053; 83690; 84484; 85025; 93005; 93010

== ENCOUNTER 2024-06-16 19:13 | Emergency (ER) | payer MEDICARE, OTHER ==
[~2024-06-16] VITALS: Ht 152.4 cm; Wt 103.9 kg
[2024-06-16 19:26] VITALS: BP 120/67
== END 2024-06-16 19:35 | disposition left against medical advice (07) ==
LOC: ER 19:13
DX: R00.2 Palpitations (principal); R11.2 Nausea with vomiting, unspecified; R07.9 Chest pain, unspecified; Z53.29 Procedure and treatment not carried out because of patient's decision for other reasons
CPT/HCPCS: 80053; 83690; 84484; 85025; 93005; 93010; 99282-25

== ENCOUNTER 2024-07-01 14:01 | Emergency (ER) | payer MEDICARE, OTHER ==
[~2024-07-01] VITALS: Ht 152.4 cm; Wt 99.8 kg
[2024-07-01 15:13] LABS: Albumin, Blood 2.6 g/dL (3.4-5.0); Albumin/Globulin Ratio 0.8 (0.8-1.8); Bilirubin, Total 0.2 mg/dL (0.1-1.0); Bun/Creatinine Ratio 27.7 (12.0-20.0); Calcium, Blood 7.8 mg/dL (8.5-10.1); Creatinine, Blood 1.01 mg/dL (0.40-1.00); Globulin, Blood 3.4 g/dL (2.2-4.0); Potassium, Blood 2.9 mmol/L (3.5-5.5)
[2024-07-01 15:26] VITALS: BP 173/81
[2024-07-01] MEDS ORDERED: Potassium Chloride 20 MEQ TabCR PO ONE (15:30)
[2024-07-01] MEDS ORDERED: POTCHL20ER PO (15:43)
== END 2024-07-01 15:56 | disposition home or self-care (01) ==
LOC: ER 14:01
PROVIDERS: Emergency Medicine
DX: E87.6 Hypokalemia (principal); I10 Essential (primary) hypertension; E11.9 Type 2 diabetes mellitus without complications; J44.9 Chronic obstructive pulmonary disease, unspecified; Z87.891 Personal history of nicotine dependence; Z91.040 Latex allergy status; Z88.9 Allergy status to unspecified drugs, medicaments and biological substances; Z88.5 Allergy status to narcotic agent; Z88.2 Allergy status to sulfonamides; Z88.0 Allergy status to penicillin; Z79.899 Other long term (current) drug therapy; Z79.891 Long term (current) use of opiate analgesic; Z79.890 Hormone replacement therapy; Z79.51 Long term (current) use of inhaled steroids; Z79.52 Long term (current) use of systemic steroids; Z79.83 Long term (current) use of bisphosphonates; Z79.1 Long term (current) use of non-steroidal anti-inflammatories (NSAID); Z79.2 Long term (current) use of antibiotics
CPT/HCPCS: 80053; 93005; 93010; 99284-25; A9270

== ENCOUNTER 2025-02-20 17:52 | Emergency (ER) | payer MEDICARE ==
[~2025-02-20] VITALS: Ht 154.9 cm; Wt 102.1 kg
[~2025-02-20 17:52] MED LIST changes: +MECL25 PO; +MONT10T PO; +POTA10T PO; +SERT50 PO
[2025-02-20 18:15] LABS: BASOPHILS ABSOLUTE AUTO 0.04 K/mm3 (0.00-0.23); BASOPHILS PERCENT AUTO 1 % (0-2); EOSINOPHILS ABSOLUTE AUTO 0.05 K/mm3 (0.00-0.68); EOSINOPHILS PERCENT AUTO 1 % (0-6); Hematocrit 30.0 % (33.0-51.0); Hemoglobin 9.8 g/dL (11.5-16.0); IMMATURE GRAN ABSOLUTE AUTO 0.03 K/mm3 (0.00-0.10); IMMATURE GRAN PERCENT AUTO 1 % (0-1); LYMPHOCYTES ABSOLUTE AUTO 2.04 K/mm3 (0.84-5.20); LYMPHOCYTES PERCENT AUTO 35 % (21-46); MONOCYTES ABSOLUTE AUTO 0.56 K/mm3 (0.16-1.47); MONOCYTES PERCENT AUTO 10 % (4-13); Mean Corpuscular HGB Conc 32.7 g/dL (31.5-36.5); Mean Corpuscular Volume 91 fL (80-100); NEUTROPHILS ABSOLUTE AUTO 3.09 K/mm3 (1.96-9.15); NEUTROPHILS PERCENT AUTO 53 % (41-73); NRBC ABSOLUTE 0.00 K/mm3 (0.00-0.02); NRBC Auto 0.0 /100 WBC (0.0-0.2); Platelet Count 171 K/mm3 (150-400); RDW Coefficient Variation 15.4 % (11.7-14.2); RDW Standard Deviation 50.8 fL (35.1-46.3)
[2025-02-20 18:49] LABS: Acetaminophen, Random <2.0 ug/mL (10.0-30.0); Ethanol (Alcohol), Blood, Med 244 mg/dL; Salicylate <1.7 mg/dL (2.8-20.0)
[2025-02-20 18:50] LABS: Alanine Aminotransfer (ALT/SGP 85 U/L (12-78); Albumin, Blood 2.8 g/dL (3.4-5.0); Albumin/Globulin Ratio 1.0 (0.8-1.8); Anion Gap 9 mmol/L (3-11); Aspartate Aminotrans (AST/SGOT 175 U/L (12-37); Bilirubin, Total 0.4 mg/dL (0.1-1.0); Blood Urea Nitrogen 11 mg/dL (8-24); CO2, Blood 28 mmol/L (21-32); Calcium, Blood 7.2 mg/dL (8.5-10.1); Chloride, Blood 103 mmol/L (98-108); Creatinine, Blood 0.89 mg/dL (0.40-1.00); Globulin, Blood 2.8 g/dL (2.2-4.0); Glucose, Blood 118 mg/dL (70-99); Potassium, Blood 2.9 mmol/L (3.5-5.5); Sodium, Blood 137 mmol/L (136-145); Total Protein, Blood 5.6 g/dL (6.4-8.2)
[2025-02-20] MEDS ORDERED: Magnesium Sulf 2 GM/Water 50ML 50 ML IV ONE (19:15)
[2025-02-20 19:28] LABS: Source, Urine Clean Catch
[2025-02-20 19:34] LABS: Bilirubin, Urine Neg (Neg); Color, Urine Yellow (P-Yellow); Glucose Qualitative, Urine Neg (Neg); Ketones, Urine Neg (Neg); Leukocyte Esterase, Urine 1+ (Neg); Protein, Urine 1+ (Neg); Specific Gravity, Urine 1.005 (1.003-1.022); Urobilinogen, Urine NORM (Normal)
[2025-02-20 19:44] LABS: U Amphetamine Screen Not Detected; U Barbiturate Screen Not Detected; U Benzodiazapine Screen Not Detected; U Buprenorphine Screen Not Detected; U Cannabinoids Screen Not Detected; U Cocaine Screen Not Detected; U Methadone Screen Not Detected; U Methamphetamine Screen Not Detected; U Opiates Screen Not Detected; U Oxycodone Screen Not Detected; U Phencyclidine Screen Not Detected
[2025-02-20 23:45] VITALS: BP 132/70
== END 2025-02-20 23:59 | disposition home or self-care (01) ==
LOC: ER 17:52
PROVIDERS: Emergency Medicine
DX: T43.594A Poisoning by other antipsychotics and neuroleptics, undetermined, initial encounter (principal); F10.929 Alcohol use, unspecified with intoxication, unspecified; E87.6 Hypokalemia; E83.42 Hypomagnesemia; E03.9 Hypothyroidism, unspecified; E11.9 Type 2 diabetes mellitus without complications; I11.0 Hypertensive heart disease with heart failure; I50.30 Unspecified diastolic (congestive) heart failure; J44.9 Chronic obstructive pulmonary disease, unspecified; Z87.891 Personal history of nicotine dependence; Z79.890 Hormone replacement therapy; Z79.899 Other long term (current) drug therapy
CPT/HCPCS: 80053; 80320; 81001; 83735; 85025; G0480; J3475; J3480; J7050